=== PATIENT | female | born 1995 | race Hispanic/Latino ===

== ENCOUNTER 2018-11-07 17:37 | Emergency (ER) | payer MEDICAID, SELFPAY ==
[2018-11-07 17:38] VITALS: BP 114/72; PULSE 97; RESP 18; TEMP 36.1; O2SAT 98; BMI 24.2
[2018-11-07] MEDS: 0.9% Normal Saline 1,000 ML 1000 ML IV ×2 (18:10→20:12)
[2018-11-07] MEDS: Ondansetron 4 MG/2 ML Vial IV (18:24)
[2018-11-07] MEDS: Ketorolac 30 MG/ML Syringe IV (18:24)
[2018-11-07 18:54] LABS: Absolute Lymphocyte Count 0.81 X10^3/ul (0.83-4.51); Absolute Neutrophil Count 5.1 X10^3/uL (2.0-7.7); Eosinophil# 0.02 X10^3/uL; Eosinophils% 0.3 % (0-5); Hemoglobin 14.4 g/dl (12.0-15.0); Lymphocyte # 0.81 X10^3/ul (4.0); Lymphocyte % 11.9 % (19-41); Mean Corp Hgb Conc 35.1 g/gl (32-36); Mean Corpuscular Hgb 29.3 pg (27.0-32.0); Mean Corpuscular Volume 83.3 fL (81-99); Mean Platelet Vol. 10.5 fl (6.2-12.0); Monocyte# 0.82 X10^3/uL; Monocyte% 12.1 % (0-10); Neutrophil # 5.14 X10^3/uL (2.7-7.7); Neutrophil % 75.6 % (47-70); Platelet Count 179 K/mm3 (150-450); RBC Distribution Width CV 12.2 % (11.6-14.6); RBC Distribution Width SD 37.1 fl (35.1-43.9); Red Blood Count 4.92 M/mm3 (4.2-5.4); White Blood Count 6.8 K/mm3 (4.4-11.0)
[2018-11-07 19:03] LABS: Anion Gap 5 (5-15); BUN 7 mg/dL (7-18); BUN/Creat Ratio 10.4 RATIO (10-20); Calcium,Total 8.4 mg/dL (8.5-10.1); Chloride 104 mmol/L (98-107); Creatinine, Serum 0.67 mg/dL (0.55-1.02); EST Glomerular Filtration Rate 115 mL/min (>60); Est Glom Filt Rate - Afr Amer 140 mL/min (>60); Estimated Creatinine Clearance 122.25 ml/min; Glucose 119 mg/dL (74-106); Potassium 3.2 mmol/L (3.5-5.1); Sodium Level 136 mmol/L (136-145)
[2018-11-07 19:16] LABS: Internal QC Validated? YES +Cl - CLEAR BKGD; Pregnancy, Serum, hCG Quali. NEGATIVE Negative
[2018-11-07 19:28] LABS: POSITIVE COUNT NO; POSITIVE DIFFERENTIAL NO; POSITIVE MORPHOLOGY NO
[2018-11-07 20:15] VITALS: BP 98/65; PULSE 79; RESP 18
--- NOTE | 2018-11-07 20:32 | ED.VISSUMM ---
- ER Visit Summary Date of Service: 11/07/18 Chief Complaint: Vomiting and diarrhea History of Present Illness: The patient is a 23 F with no primary care physician. She moved here from [place] 1 week ago. She reports that she has vomiting and diarrhea that began yesterday. She is vomited 10 times. No blood or emesis. She had a 10 episodes of diarrhea. No blood in her stools or black tarry stools. Denies any sick contacts. She does remain report that she may have eaten something bad. However, she does not have a specific food that she is questioning. On review of systems patient reports that she has a headache that is 8 of 10 severity. It is diffuse. Is been gradual in onset. She has had similar headaches previously. Physical Examination: Vitals: Stable. Afebrile. General: Well-nourished and well-developed. Head: Normocephalic atraumatic. Neck: Supple, no lymphadenopathy. No JVD. Nontender. Cardiovascular: Regular rate and rhythm. No murmurs. Respiratory: No respiratory distress. Clear to auscultation bilaterally. Abdominal: Soft, nontender, nondistended, normal bowel sounds. No guarding, rebound, or peritoneal signs. Back: Nontender. Extremities: Nontender, no edema. Skin: Normal color, no rash. Neurologic: Alert and oriented ?3. Cranial nerves II through XII are intact. Normal strength and sensation. Psych: Normal affect. Test Results: CBC shows segmented neutrophils of 76, lymphocytes 12, monocytes 12. Chem-7 shows potassium 3.2, glucose 119, calcium 8.4. test is negative. Emergency Department Course and Treatment: Patient had an IV placed. She is given a liter normal saline. She was given Zofran Toradol IV. She is resting comfortably. She has had no vomiting or diarrhea while here. Treatment Plan: Patient will be discharged with Zofran. [facility] if not improving. Return to the emergency department for any worsening symptoms. Disposition: To home in improved and stable condition. Impression: 1. Vomiting/diarrhea. This note was generated with AnchorFreeation software. It may contain incorrect words, spelling, and punctuation that were not noted in review of the chart prior to signing ED Disposition - Plan for ED Patient: Disposition: Home or Assisted Living Instructions: ED Vomiting Diarrhea Nonspecific Ad Prescriptions: Ondansetron [Zofran Odt] 4 mg PO Q8H PRN PRN #10 tablet PRN Reason: Nausea Referrals: Carmen Galvez [NON-STAFF] - 1-2 Days if not improving
[2018-11-07 20:50] VITALS: BP 98/88; PULSE 88; O2SAT 100
== END 2018-11-07 20:53 | disposition home or self-care (01) ==
LOC: ED 18:39
PROVIDERS: Emergency Provider Emergency Medicine
DX: R19.7 Diarrhea, unspecified (principal); R11.2 Nausea with vomiting, unspecified; R51 Headache
CPT/HCPCS: 80048; 84703; 85025; 96361; 96374; 96375; 99283; J7030; A4216; J2405

== ENCOUNTER 2019-04-16 22:25 | Emergency (ER) | payer MEDICAID, SELFPAY ==
[2019-04-16 22:27] VITALS: BP 119/83; PULSE 87; RESP 16; TEMP 36.4; O2SAT 98; BMI 22.3
--- NOTE | 2019-04-16 22:51 | ED.VIS.GEN ---
History of Present Illness Chief Complaint: Sore Throat Informant: Patient Onset: Days - 5 days Context: Gradual Onset Timing: Waxes and wanes Current Severity: Moderate Maximum Severity: Moderate Narrative: Patient presents with 5-day history of sore throat. She states left is worse than right. She has not had significant cough. She has not noted fever. 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 Past Medical History - Allergies and Home Meds Allergies/Adverse Reactions: Allergies No Known Allergies Allergy (Verified 11/07/18 17:38) Primary Care Physician: Care Physician,No Primary [Primary Care Provider] - Prior records reviewed: Yes Past Medical History: - - Reviewed Smoking Status: Never smoker Review of Systems General: Denies: Chills, Fever Eyes: Denies: Visual changes - bilaterally ENT: Reports: Sore throat. Denies: Bilateral ear pain Cardiovascular: Denies: Chest pain Respiratory: Denies: Dyspnea Gastrointestinal: Denies: Abdominal pain, Nausea, Vomiting, Diarrhea Genitourinary: Denies: Dysuria Musculoskeletal: Denies: Neck pain, Back pain Skin: Denies: Rash Neurological: Denies: Headache Physical Exam Vital Signs/Narrative: Vital Signs Temp Pulse Resp BP Pulse Ox 04/16/19 22:27 97.5 F L 87 16 119/83 H 98 Inital Vital Signs reviewed: Yes General: Well nourished, Well developed Head: Normocephalic Eyes: Perrl, EOMI ENT: Moist mucous membranes, TM's clear, - - 3+ tonsils bilaterally. Uvula is midline. Neck: - - Bilateral anterior cervical lymphadenopathy, left greater than right. Cardiovascular: Regular rate, Regular rhythm Respiratory: No distress, CTA bilaterally Abdomen: Soft, Nontender Skin: Normal color Neurological: Alert, Oriented x3 Psychological: Normal affect Diagnostic/Tx/Re-eval - Medical Decision Making Patient does have evidence of pharyngitis with exposure to multiple children at daycare. She is tolerating secretions well. She will be treated with a dose of Decadron and course of amoxicillin for presumed strep. ED Disposition - Plan for ED Patient: Disposition: Home or Assisted Living Diagnosis: Pharyngitis Instructions: PHARYNGITIS, Strep (Presumed) Prescriptions: Amoxicillin 500 mg PO TID #30 tablet Referrals: Carlotta Encinas MD [STAFF PHYSICIAN] - As Needed
[2019-04-16] MEDS: AMOXICILLIN 500 MG CAPSULE PO (23:05)
[2019-04-16] MEDS: dexAMETHasone 4 MG Tablet 10 MG PO (23:05)
== END 2019-04-16 23:09 | disposition home or self-care (01) ==
PROVIDERS: Emergency Provider Emergency Medicine
DX: J02.9 Acute pharyngitis, unspecified (principal); R59.0 Localized enlarged lymph nodes
CPT/HCPCS: 99283

== ENCOUNTER 2019-12-26 09:58 | Emergency (ER) | payer MEDICAID, SELFPAY ==
[2019-12-26 09:47] VITALS: BMI 22.3
[2019-12-26 09:59] VITALS: BP 129/73; PULSE 94; RESP 16; TEMP 36.3; O2SAT 96; BMI 25.2
--- NOTE | 2019-12-26 10:11 | US_ITS ---
STUDY: FIRST TRIMESTER OBSTETRICAL ULTRASOUND REASON FOR EXAM: Female, 24 years old PAIN -- NO IUP IN OFFICE -- DR DHILLON WANTED EXAM WITH NO QUANT DRAWN - QUANT PENDING LMP: October 25, 2019. TECHNIQUE: Transabdominal and Transvaginal TECHNICAL QUALITY: Adequate. PRIOR ULTRASOUND: None. FINDINGS: There is no demonstrated intrauterine gestational sac. There is no demonstrated yolk sac. The placenta is non-visualized. There is no demonstrated embryo ( pole). The estimated gestation age (EGA) by LMP is 8 weeks, 6 days. The estimated date of delivery (BRANDY) by LMP is July 30, 2020. The uterus measures 8.9 cm x 5.4 cm x 4.7 cm. The endometrium measures 13 mm. There is no demonstrated uterine fibroid. The cervix is closed. The right ovary measures 3.4 cm x 2.9 cm x 1.7 cm. There is no right ovarian cyst. There is no visualized right adnexal mass or complex lesion. The left ovary measures 3.9 cm x 2.7 cm x 2.9 cm. 5 mm calcification in the left ovary.. There is no left ovarian cyst. There is no visualized left adnexal mass or complex lesion. There is no fluid in the cul de sac. US/Transvaginal w/Preg US IMPRESSION: No intrauterine gestation is seen. Both ovaries are unremarkable. Electronically Signed: Yoni Ross, at 11:29 EDT , Service support ,
[2019-12-26 10:23] LABS: Absolute Lymphocyte Count 1.96 X10^3/uL (0.83-4.51); Absolute Neutrophil Count 4.5 X10^3/uL (2.0-7.7); Basophil# 0.04 X10^3/uL; Basophil% 0.5 % (0-1); Eosinophils% 1.4 % (0-5); Hematocrit 43.9 % (37-47); Hemoglobin 14.9 g/dL (12.0-15.0); Lymphocyte # 1.96 X10^3/ul (4.0); Lymphocyte % 26.8 % (19-41); Mean Corp Hgb Conc 33.9 g/dL (32-36); Mean Corpuscular Hgb 28.9 pg (27.0-32.0); Mean Corpuscular Volume 85.2 fL (81-99); Mean Platelet Vol. 10.2 fl (6.2-12.0); Monocyte# 0.67 X10^3/uL; Monocyte% 9.2 % (0-10); NRBC Flagged by Analyzer 0 % (0-5); Neutrophil # 4.52 X10^3/uL (2.7-7.7); Neutrophil % 61.8 % (47-70); Platelet Count 214 K/mm3 (150-450); RBC Distribution Width CV 12.1 % (11.6-14.6); Red Blood Count 5.15 M/mm3 (4.2-5.4); White Blood Count 7.3 K/mm3 (4.4-11.0)
--- NOTE | 2019-12-26 10:42 | ED.VISSUMM ---
- ER Visit Summary Date of Service: 12/26/19 Chief Complaint: Pelvic pain History of Present Illness: The patient is a 24 F G3, P1 Ab1 with having a miscarriage. Prior . Patient states her last menstrual period was sometime in October. She saw her CITY LIBR[employer] DIRECTOR Dr. Angy Gomez today. And an in office ultrasound they did not see a . They want to rule out an ectopic versus other causes of her pain. She denies any bleeding or discharge. No history of STD. She is never had an ectopic before. She denies any dysuria, fever or chills. She denies any nausea, vomiting, diarrhea or constipation. Currently she is pain-free. Physical Examination: Young female no acute distress vital signs are stable afebrile. Initial blood pressure 129/73. HEENT exam unremarkable. Neck nontender. Lungs clear to auscultation bilaterally. Heart regular rate and rhythm no murmur. M soft, nontender, nondistended normal bowel sounds no peritoneal signs. Absolutely nontender. Pelvic exam done female nurse present in the room plus also a female from Dr. David Vega's office. Pelvic exam is unremarkable. Normal external genitalia. On speculum exam there is no vaginal bleeding or discharge. Cervical loss closed. On bimanual exam there is no uterine or adnexal tenderness or masses. Patient really had no significant pain during the exam. She was anxious and emotionally upset due to the nature of her visit. She is consolable. Patient is moving all 4 extremities. Neurovascularly intact. There is no edema. Neurologically she is awake and alert. Test Results: White count of 7. Hemoglobin 14. UA normal no signs of blood or infection. ABO Rh blood type O+. Quantitative hCG only 373. Pelvic ultrasound showed no acute abnormality. Read by the radiologist and the electronics warfare technician. No ectopic seen. No free fluid seen. No cyst. I believe her [employer] DIRECTOR reviewed those results. Emergency Department Course and Treatment: 24-year-old patient with 4+ home test with pelvic pain. Rule out ectopic versus other etiologies. Repeat exam at 1:20 PM patient is doing well. She is pain-free. Her abdomen is benign and nontender. She and I went over all of her test results. I also spoke to her [employer] DIRECT[employer] Dr. Angy Vega and she will see her in follow-up next week. She will follow quant and serial ultrasounds. Patient knows to return if increasing pain or heavy bleeding. Treatment Plan: Follow-up with your [employer] DIRECTOR for repeat quantitative hCGs and ultrasounds. Return if worsening bleeding. Disposition: Discharge Impression: Acute pelvic pain of uncertain etiology Early first trimester Rule out ectopic This note was generated with Encite dictation software. It may contain incorrect words, spelling, and punctuation that were not noted in review of the chart prior to signing ED Disposition - Plan for ED Patient: Referrals: Care Physician,No Primary [Primary Care Provider] -
[2019-12-26 10:48] LABS: hCG Titer Quant., Serum 373 mIU/mL (1-3)
[2019-12-26 11:39] LABS: Mucous, Urine 0 SEEN /hpf (<or=2+); Red Blood Cells-Urine 0 SEEN /hpf (0-5); Squamous Epithelial Cells - UA 0 SEEN /hpf (5-10); White Blood Cells 0 SEEN /hpf (0-5)
[2019-12-26 11:43] LABS: Color, Urine Straw (Yellow); Glucose, Dipstick Normal (Normal); Ketone-Dipstick Negative (Negative); Leukocyte Esterase-Dipstick Negative /ul (Negative); Nitrite-Dipstick Negative (Negative); Occult Blood-Urine Negative /ul (Negative); Protein-Dipstick Negative (Negative); Specific Gravity, Urine 1.005 (1.002-1.030); Urine Bilirubin Dipstick Negative (Negative); Urine Clarity Clear (Clear); Urine Urobilinogen Normal (Normal)
[2019-12-26 11:57] LABS: Bacteria RARE /hpf (None Seen)
[2019-12-26 12:06] VITALS: BP 119/71; PULSE 97; RESP 19; O2SAT 98
--- NOTE | 2019-12-26 13:24 | DCINST.ED_ITS ---
ED Disposition - Plan for ED Patient: Disposition: Home or Assisted Living Instructions: ED ECTOPIC RULE OUT Referrals: Angy Gomez MD [STAFF PHYSICIAN] - 1 Week Additional Instructions: Follow-up with Dr. Gomez's office on Monday. They will need to get repeat quantitative hCG levels to follow your . They will also need to get repeat ultrasound to ensure that you have a normal . It is just too e eryn to tell at this time but there are currently no signs of this being an ectopic . Tylenol for any pain. Return to the emergency department if you have severe worsening pelvic pain or heavy vaginal bleeding.
[2019-12-26 13:56] VITALS: BP 115/67; PULSE 70; RESP 16; O2SAT 98
== END 2019-12-26 13:56 | disposition home or self-care (01) ==
PROVIDERS: Emergency Provider Emergency Medicine
DX: O26.891 Other specified pregnancy related conditions, first trimester (principal); R10.2 Pelvic and perineal pain; Z3A.00 Weeks of gestation of pregnancy not specified
CPT/HCPCS: 76817; 81001; 84702; 85025; 86900; 86901; 99284; A4216

== ENCOUNTER → 2019-12-28 08:41 | Outpatient (CLI) | payer MEDICAID, SELFPAY ==
[2019-12-26 09:59] VITALS: BMI 25.2
[2019-12-28 09:59] LABS: hCG Titer Quant., Serum 917 mIU/mL (1-3)
== END ==
PROVIDERS: Referring Provider Obstetrics & Gynecology; Visit Provider Obstetrics & Gynecology
DX: Z34.90 Encounter for supervision of normal pregnancy, unspecified, unspecified trimester (principal)
CPT/HCPCS: 36415; 84702

== ENCOUNTER → 2020-01-13 12:23 | Outpatient (CLI) | payer MEDICAID, SELFPAY ==
[2019-12-26 09:59] VITALS: BMI 25.2
--- NOTE | 2020-01-13 12:28 | US_ITS ---
STUDY: FIRST TRIMESTER OBSTETRICAL ULTRASOUND (TWINS) REASON FOR EXAM: Female, 24 years old. LMP: Unknown. viability TECHNIQUE: Transvaginal TECHNICAL QUALITY: Adequate. COMPARISON: None. FINDINGS: There there is a single demonstrated intrauterine gestational sac. There is a single identified placenta, without a ?twin peak? sign, indicating a probable monochorionic . The amniotic membrane cannot be visualized. BABY A The mean sac diameter (MSD) measure 2.14 cm, indicating an estimated gestational age (EGA) of 7 weeks, 0 days. There is a visualized yolk sac. The yolk sac measures 5.9 mm. There is visualization of an embryo. The crown-rump length (CRL) measures 7.6 mm, indicating an estimated gestational age (EGA) of 6 weeks, 5 days. The estimated gestation age (EGA) by US is 6 weeks, 6 days. The estimated date of delivery (BRANDY) by US is September 01, 2020. There is demonstrated cardiac activity with a heart rate 140 bpm. BABY B The mean sac diameter (MSD) measure 2.14 cm, indicating an estimated gestational age (EGA) of 7 weeks, 0 days. There is a visualized yolk sac. The yolk sac measures 6 mm. There is visualization of an embryo. The crown-rump length (CRL) measures 8 mm, indicating an estimated gestational age (EGA) of 6 weeks, 6 days. The estimated gestation age (EGA) by US is 6 weeks, 6 days. The estimated date of delivery (BRANDY) by US is September 01, 2020. There is demonstrated cardiac activity with a heart rate 129 bpm. MATERNAL ANATOMY The uterus measures 10.2 cm x 6.7 cm x 4.9 cm. There is no demonstrated uterine fibroid. The cervix is closed. The right ovary measures 3.5 cm x 1.7 cm x 1.6 cm. There is no right ovarian cyst. There is no visualized right adnexal mass or complex lesion. The left ovary measures 4 cm x 2.3 cm x 2.3 cm. There is no left ovarian cyst. There is no visualized left adnexal mass or complex lesion. There is minimal fluid in the cul de sac. US/Init OB < 14Wks US IMPRESSION: Live twin gestation with a mean gestational age of 6 weeks and 6 days. Electronically Signed: Yoni Ross, at 14:53 EDT , Service support ,
== END ==
PROVIDERS: Referring Provider Obstetrics & Gynecology; Visit Provider Obstetrics & Gynecology
DX: O20.0 Threatened abortion (principal); Z3A.00 Weeks of gestation of pregnancy not specified
CPT/HCPCS: 76801; 76802

== ENCOUNTER → 2020-01-29 16:58 | Outpatient (CLI) | payer MEDICAID, SELFPAY ==
[2020-01-29 12:53] VITALS: BMI 25.2
[2020-01-29 18:16] LABS: Amphetamine Urine VISTA NEGATIVE (<1000 ng/mL); Barbiturate Urine VISTA NEGATIVE (< 200 ng/mL); Benzodiazepine Urine VISTA NEGATIVE (< 200 ng/mL); Cocaine Urine VISTA NEGATIVE (< 300 ng/mL); Ecstacy Urine VISTA NEGATIVE (< 500 ng/mL); Methadone Urine VISTA NEGATIVE (< 300 ng/mL); PCP Urine VISTA NEGATIVE (< 25 ng/mL); THC Urine VISTA NEGATIVE (< 50 ng/mL); Vista UDS pH Range 7
[2020-01-29 20:08] LABS: Chlamydia Trachomatis by PCR Negative (Negative); Neisserai gonorrhoeae by PCR Negative (Negative); Probe Check PASS; Sample Adequacy Control PASS; Specimen Processing Control PASS
[2020-02-03 22:20] LABS: HPV Reflexed? NOT INDICATED
== END ==
PROVIDERS: Referring Provider Obstetrics & Gynecology; Visit Provider Obstetrics & Gynecology
DX: Z34.90 Encounter for supervision of normal pregnancy, unspecified, unspecified trimester (principal); Z12.4 Encounter for screening for malignant neoplasm of cervix
CPT/HCPCS: 80307; 87086; 87088; 87491; 87591; 88175; G0145

== ENCOUNTER → 2020-02-03 12:28 | Outpatient (CLI) | payer MEDICAID, SELFPAY ==
[2020-01-29 12:53] VITALS: BMI 25.2
[2020-02-03 13:40] LABS: NATERA MAILED SPECIMEN
[2020-02-03 13:48] LABS: Absolute Lymphocyte Count 1.85 X10^3/uL (0.83-4.51); Absolute Neutrophil Count 7.2 X10^3/uL (2.0-7.7); Basophil# 0.03 X10^3/uL; Basophil% 0.3 % (0-1); Eosinophil# 0.06 X10^3/uL; Eosinophils% 0.6 % (0-5); Hematocrit 41.2 % (37-47); Hemoglobin 14.6 g/dL (12.0-15.0); Lymphocyte # 1.85 X10^3/ul (4.0); Lymphocyte % 18.4 % (19-41); Mean Corp Hgb Conc 35.4 g/dL (32-36); Mean Corpuscular Hgb 29.6 pg (27.0-32.0); Mean Corpuscular Volume 83.4 fL (81-99); Mean Platelet Vol. 10.7 fl (6.2-12.0); Monocyte# 0.91 X10^3/uL; NRBC Flagged by Analyzer 0 % (0-5); Neutrophil # 7.19 X10^3/uL (2.7-7.7); Neutrophil % 71.4 % (47-70); Platelet Count 225 K/mm3 (150-450); RBC Distribution Width CV 11.9 % (11.6-14.6); RBC Distribution Width SD 35.6 fl (35.1-43.9); Red Blood Count 4.94 M/mm3 (4.2-5.4); White Blood Count 10.1 K/mm3 (4.4-11.0)
[2020-02-03 14:53] LABS: HIV - WCH Non-Reactive (Nonreactive); Hepatitis B Surface Antigen Non-Reactive (Nonreactive); Hepatitis C Antibody Non-Reactive (Nonreactive); Rubella IgG 39.9 IU/mL
[2020-02-06 02:24] LABS: Rapid Plasmin Reagin (RPR) NONREACTIVE (NONREACTIVE)
== END ==
PROVIDERS: Referring Provider Obstetrics & Gynecology; Visit Provider Obstetrics & Gynecology
DX: Z34.81 Encounter for supervision of other normal pregnancy, first trimester (principal); Z31.430 Encounter of female for testing for genetic disease carrier status for procreative management
CPT/HCPCS: 36415; 85025; 86592; 86703; 86762; 86803; 86850; 86900; 86901; 87340

== ENCOUNTER → 2020-02-27 14:11 | Outpatient (CLI) | payer MEDICAID, SELFPAY ==
[2020-02-27 13:20] VITALS: BMI 21.9
[2020-02-27 14:21] VITALS: BP 140/63; PULSE 122; RESP 16; TEMP 36.1; O2SAT 96; BMI 21.9
[2020-02-27] MEDS: Dextrose 5%-Lactated Ringers 1,000 ML 999 ML IV (14:39)
[2020-02-27] MEDS: Ondansetron 4 MG/2 ML Vial IV (14:46)
[2020-02-27] MEDS: proMETHazine 25 MG/ML Syringe 12.5 MG IV (15:38)
[2020-02-27 15:54] VITALS: BP 127/59; PULSE 110; RESP 16
== END ==
PROVIDERS: Referring Provider Obstetrics & Gynecology; Visit Provider Obstetrics & Gynecology
DX: E86.0 Dehydration (principal)
CPT/HCPCS: 96361; 96374; 96375; A4216; J2405

== ENCOUNTER → 2020-06-17 14:06 | Outpatient (CLI) | payer MEDICAID, SELFPAY ==
[2020-06-02 15:23] VITALS: BMI 25.7
[2020-06-17 14:24] LABS: Absolute Lymphocyte Count 1.94 X10^3/uL (0.83-4.51); Absolute Neutrophil Count 8.6 X10^3/uL (2.0-7.7); Basophil# 0.02 X10^3/uL; Basophil% 0.2 % (0-1); Eosinophil# 0.06 X10^3/uL; Eosinophils% 0.5 % (0-5); Lymphocyte # 1.94 X10^3/ul (4.0); Lymphocyte % 16.3 % (19-41); Mean Corp Hgb Conc 32.4 g/dL (32-36); Mean Corpuscular Hgb 26.4 pg (27.0-32.0); Mean Corpuscular Volume 81.7 fL (81-99); Mean Platelet Vol. 10.7 fl (6.2-12.0); Monocyte# 1.24 X10^3/uL; Monocyte% 10.4 % (0-10); NRBC Flagged by Analyzer 0 % (0-5); Neutrophil # 8.59 X10^3/uL (2.7-7.7); Neutrophil % 71.9 % (47-70); Platelet Count 218 K/mm3 (150-450); RBC Distribution Width CV 12.8 % (11.6-14.6); RBC Distribution Width SD 37.6 fl (35.1-43.9); Red Blood Count 4.16 M/mm3 (4.2-5.4); White Blood Count 11.9 K/mm3 (4.4-11.0)
[2020-06-17 14:53] LABS: Glucose Challenge Gest 1H 50g 105 mg/dL (70-140)
== END ==
PROVIDERS: Referring Provider Obstetrics & Gynecology; Visit Provider Obstetrics & Gynecology
DX: Z13.1 Encounter for screening for diabetes mellitus (principal); O09.90 Supervision of high risk pregnancy, unspecified, unspecified trimester
CPT/HCPCS: 36415; 82950; 85025

== ENCOUNTER 2020-07-25 11:25 | Inpatient (IN) | payer MEDICAID, SELFPAY ==
[2020-06-02 15:23] VITALS: BMI 25.7
[2020-07-21 14:04] VITALS: BMI 29.0
[2020-07-25] VITALS (19 sets, daily range): BP systolic 115–150; BP diastolic 53–78; PULSE 64–104; RESP 14–16; TEMP 36.3–37.4; O2SAT 96–100; BMI 28.6
--- NOTE | 2020-07-25 | FALS_PTH ---
PATIENT: JARED PACHECO LOC: [facility] U#:[id number] AGE/SX: 25/F ROOM: WP003 RE07/25/[address]: Dr. Angy Gomez MD : 1995 BED: 1 DIS: 07/28/2020 SPEC #: [id number] RECD: 07/25/20 13:52 STATUS: KENDRA PAPITO #: [id number] ESTHER: 07/25/20 00:[address]: Angy Gomez DEPT: SURGICAL PATHOLOGY RECD BY: Virgil Johns ENTERED: 07/27/20 08:10 SP TYPE: FALL TUBES OTHR DR: No Primary Care Phys Tissues: Fallopian tube Procedures: Surgery Specimen Level II HEADER OPERATION: Tubal ligation PRE-OP DIAGNOSIS: Sterilization TISSUE SUBMITTED: Fallopian tubes MICROSCOPIC DIAGNOSIS Bilateral fallopian tubes, salpingectomy: Bilateral fallopian tubes including fimbrial ends, no pathologic diagnosis. SOLIS:haleigh 07/28/2020 MICROSCOPIC DESCRIPTION Slides are reviewed. GROSS DESCRIPTION Received in fixative is one container labeled with the patient's name and designated bilateral fallopian tubes, stitch in right tube. The specimen consists of bilateral fallopian tubes including fimbrial ends. The right fallopian tube measures 6 cm in length and 0.8 cm in diameter and the left fallopian tube measures 6 cm in length and 1 cm in diameter. Sections reveal unremarkable cut surfaces. Delivery Room Clerk sections are submitted in two cassettes as follows: 1 - right fallopian tube, 2 - left fallopian tube. / SOLIS:haleigh 07/27/20 TC:4 CPT: 44353 x2
[2020-07-25 11:21] LABS: ROM Internal Control Test YES-OK TO RESULT pt. (Internal QC)
[2020-07-25 11:23] LABS: ROM Patient Test POSITIVE (Negative)
[2020-07-25] MEDS: Lactated Ringers 1,000 ML 999 ML IV (11:45)
[2020-07-25] MEDS: Betamethasone/Betamethasone 30 MG/5 ML Vial 12 MG IM (12:02)
[2020-07-25] MEDS: Acetaminophen 500 MG Tablet 1000 MG PO ×2 (12:08→18:24)
[2020-07-25 12:14] LABS: Absolute Lymphocyte Count 1.71 X10^3/uL (0.83-4.51); Absolute Neutrophil Count 6.9 X10^3/uL (2.0-7.7); Basophil# 0.02 X10^3/uL; Basophil% 0.2 % (0-1); Eosinophil# 0.04 X10^3/uL; Eosinophils% 0.4 % (0-5); Hematocrit 33.4 % (37-47); Hemoglobin 10.3 g/dL (12.0-15.0); Lymphocyte # 1.71 X10^3/ul (4.0); Lymphocyte % 18.2 % (19-41); Mean Corp Hgb Conc 30.8 g/dL (32-36); Mean Corpuscular Hgb 23.1 pg (27.0-32.0); Mean Corpuscular Volume 75.1 fL (81-99); Mean Platelet Vol. 11.6 fl (6.2-12.0); Monocyte# 0.72 X10^3/uL; Monocyte% 7.7 % (0-10); NRBC Flagged by Analyzer 0 % (0-5); Neutrophil # 6.88 X10^3/uL (2.7-7.7); Neutrophil % 73.2 % (47-70); Platelet Count 147 K/mm3 (150-450); RBC Distribution Width CV 13.8 % (11.6-14.6); RBC Distribution Width SD 37.2 fl (35.1-43.9); Red Blood Count 4.45 M/mm3 (4.2-5.4); White Blood Count 9.4 K/mm3 (4.4-11.0)
[2020-07-25] MEDS: Sodium Citrate/Citric Acid 30 ML UDC PO (12:20)
--- NOTE | 2020-07-25 12:22 | HP.PCM_ITS ---
- Problem List (1) premature rupture of membranes (PPROM) with unknown onset of labor Status: Acute (2) Discordant growth in twin gestation Status: Acute Comment: borderline,plan growth US q 4 weeks, q2wks TTTs scan with MFM, and wkly BPP @32 wks with MFM, 07/08 nl BPP and JOLEEN (3) History of delivery Status: Acute Comment: csection 08/11/20 at 12 with SM. AOD 2 cm in [place]. plan TOLAC if able. (4) Monochorionic diamniotic twin gestation Status: Acute Comment: NIPT- low risk mono-zygotic identical twin boys, plan delivery at 37 wks. Csection 08/11/20 @ 12 (5) Status: Acute Qualifiers: Comment: low risk nipt and carrier- neg . 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 Is patient in pain?: No Allergies No Known Allergies Allergy (Verified 07/21/20 14:04) Medications vitamin#30 30 mg iron-10 mg iron-folic acid 1 mg-omg3 capsule cap PO 01/29/20 [History Confirmed 07/21/20] meclizine 25 mg chewable tablet 25 mg PO TID PRN #90 tab 02/27/20 [Rx Confirmed 07/21/20] ondansetron HCl 4 mg tablet 4 mg PO Q4H #90 tab 02/27/20 [Rx Confirmed 07/21/20] Last Menstral Period: 10/25/19 Zika: Zika virus screening: Negative : No PFSH PFSH Medical History Dichorionic diamniotic twin gestation (Acute) History of miscarriage (Acute) Surgical History delivery delivered (Acute) Family History Unknown Diabetes Social History (Updated 07/21/20 @ 14:[address] Angy Gomez MD) Smoking Status: Never smoker alcohol intake: never substance use type: does not use caffeine: Yes what type of physical activity do you participate in: walking seatbelt use: always do you feel safe at home: Yes additional social history: [facility] ReserveOut Patient works at [employer] Pregancy History 2 Elective abortions Hx Para 1 Spontaneous abortions 1 Hx # Term Pregnancies Ectopic pregnancies Hx # Pregnancies Multiple births # of living children 1 Past Pregnancies Del. Date Name GA/Weeks Outcome Route Bth Weight Infant Gen Labor Lgth Anesthesia Del Locatn Provider FOB Unknown [place] live - full term 6lbs 15oz Female spinal [place] Delivery Date: 2 cm, AOD Angy Gomez HPI 34 wk OB (TWINS) Ipad req, 30 mins per SM: Details: JARED BRITT is a 25 year old @ 34w6d presents with breech PPROM twins for RLTCS. OB Visit BRANDY Calculator Estimated Delivery Date Method Current WG Current Estimate 09/01/20 Ultrasound #1 34w 0d Other Estimates 07/31/20 LMP (Certain) 38w 4d # 2 Expected Delivery Route/Plan planning RLTCS and BS with SM at 37 weeks, possible tolac if Vtx/Vtx patient counseled regarding risks/benefits of trial of labor versus repeat . ACOG/uptodate education given to patient. 69 % likelihood of success per calculator TOLAC consent form signed: title 19 signed 06/02 Labor Preferences- : yes Specific Issue/Plans flu vaccine: given tdap vaccine: given rhogam: na LARC form signed: yes 07/21/20 with interpretor movement and labor precautions reviewed. Problem list reviewed and updated with the most current plan of care details and appropriate orders placed. Relevant counseling for the gestational age provided. Continue routine care and follow up unless otherwise noted in visit notes/problem list details Initial Weight: 140 lb Date EGA Weight BP Urine Prot Glucose FHR FuHt Pres Dilation Effaced St Visit Note 02/27/20 13w 2d 128 lb (-12 lb) 100/82 Negative Negative A 155 B 145 A B A B A SM- no vb some cramping, SM- no vb some cramping, feeling weak and has lost 12 lbs. tried some nausea medication but didn't work. SM- no vb some cramping, feeling weak and has lost 12 lbs. tried some nausea medication but didn't work. ordered IVFs now to give and ordered zofran and meclizine scheduled B 03/10/20 15w 0d 129 lb 8 oz (-10 lb 8 oz) 112/72 Negative Negative A 175 B 155 A B A B A SM- improved nausea and has gained 2 lbs. no vb crmaping doing well. B 04/07/20 19w 0d 137 lb 4 oz (-2 lb 12 oz) 118/66 Negative Negative A 150 B 145 A B A B A GP - no cramping, LOF, VB, DFM. Anatomy not yet scheduled. Sent order to [facility]. B 05/07/20 23w 2d 146 lb (+6 lb) 110/70 A 150 B 145 A B A B A SM- some lower pelvic pain radiating into groin. some cramping. also having some extra stress with finding a new house, overall doesn't feel depressed or anxious enough to warrant intervention. B 06/02/20 27w 0d 155 lb (+15 lb) 116/70 A 145 B 150 A Transverse B Breech A B A SM- co fatigue. discussed sterilization that is permanent. title 19 signed. has some questions about the complications with the twins so far. questions answered using the interpretor. B 06/23/20 30w 0d 157 lb (+17 lb) 102/80 Trace Negative A 140 B 150 A Transverse B Cephalic A B A SM- no vb lof good fm no regular ctx some pelvic pain B 07/07/20 32w 0d 163 lb (+23 lb) 130/70 A 160 B 130 A B A B A SM- no vb lof good fm no regular ctx B 07/21/20 34w 0d 164 lb (+24 lb) 132/62 Negative Negative A 145 B 140 A Breech B Cephalic A B A SM- no vb lof good fm no regular ctx discussed weekly testing and delivery at 37 weeks larc signed. B ACOG First Trimester First Trimester: Discussed Diagnostics Diagnostics Diagnostics Blood Type O POSITIVE 02/03/20 Antibody Screen NEGATIVE 02/03/20 Glucose 1 Hr 50 gm 105 mg/dL (70-140) 06/17/20 HIV 1&2 Antibody Non-Reactive (Nonreactive) 02/03/20 Rubella IgG Antibody 39.9 IU/mL 02/03/20 Hgb 11.0 g/dL (12.0-15.0) L 06/17/20 Hct 34.0 % (37-47) L 06/17/20 RPR NONREACTIVE (NONREACTIVE) 02/03/20 Details: HIV: Urine Culture: Sequential Screen: NIPT Screen: ROS Const Reports system reviewed and no additional complaints, except as documented Card Reports system reviewed and no additional complaints, except as documented Resp Reports system reviewed and no additional complaints, except as documented GI Reports system reviewed and no additional complaints, except as documented, Reports nausea Reports system reviewed and no additional complaints, except as documented Musc Reports system reviewed and no additional complaints, except as documented all other systems reviewed and negative Exam Const General: cooperative, healthy appearing, comfortable [facility] Head: normal to inspection Nose: external nose normal Face and sinus: normal facial exam Neck Neck: normal visual inspection, full ROM, no lymphadenopathy Thyroid: thyroid normal Chest Chest palpation & inspection: normal inspection of the chest Resp Effort & Inspection: normal respiratory effort GI Inspection: normal to inspection Palpation: soft, other (gravid uterus) Other: infant breech breech and appropriate size for gestational age x 2 Other: Cervical Exam: Extrem General: pedal edema Results POC Urinalysis 2 Dip (Clinic) Office Urine Glucose Negative Last Edit by Teresa Obrien on 07/21/20 14:1 1 Office Urine Protein Negative Last Edit by Teresa Obrien on 07/21/20 14:1 1 Assessment & Plan Problems 1. Sterilization Z30.2 title 19 signed 06/02 2. Monochorionic diamniotic twin gestation O30.039 NIPT- low risk mono-zygotic identical twin boys, plan delivery at 37 wks. Csection 08/11/20 @ 12 3. Discordant growth in twin gestation O30.009; O36.5990 borderline,plan growth US q 4 weeks, q2wks TTTs scan with MFM, and wkly BPP @32 wks with MFM, 07/08 nl BPP and JOLEEN 4. Supervision of high-risk O09.90 PRR BRANDY 09/01/20 boys PC Alexia Rashaun 5. History of delivery Z98.891 csection 08/11/20 at 12 with SM. AOD 2 cm in [place]. plan TOLAC if able. 6. Z34.90 low risk nipt and carrier- neg . anatomy reviewed PPROM 34w6d presents with clear SROM plan RLTCS and BS After discussing the patient's diagnosis and treatment plan options, patient wishes to proceed with surgical management. I have discussed with the patient the risks, benefits, and alternatives of the procedure which include but are not limited to risks of anesthesia, bleeding, infection, possible damage to bowel, bladder, or surrounding vasculature which could lead to additional surgery to evaluate any complications. Patient agrees to procedure and wishes to proceed. ACOG/uptodate references given for additional information regarding procedure. Orders Orders: POC Urinalysis 2 Dip (Clinic) Today Coding Level of Care Code Off vis,est,level 3 Diagnoses Sterilization Z30.2 Monochorionic diamniotic twin gestation O30.039 Discordant growth in twin gestation O30.009; O36.5990 Supervision of high-risk O09.90 History of delivery Z98.891 Z34.90
--- NOTE | 2020-07-25 12:30 | OP.PCM_ITS ---
Problem List (1) premature rupture of membranes (PPROM) with unknown onset of labor Status: Acute (2) Discordant growth in twin gestation Status: Acute Comment: borderline,plan growth US q 4 weeks, q2wks TTTs scan with MFM, and wkly BPP @32 wks with MFM, 07/08 nl BPP and JOLEEN (3) History of delivery Status: Acute Comment: csection 08/11/20 at 12 with SM. AOD 2 cm in [place]. plan TOLAC if able. (4) Monochorionic diamniotic twin gestation Status: Acute Comment: NIPT- low risk mono-zygotic identical twin boys, plan delivery at 37 wks. Csection 08/11/20 @ 12 (5) Status: Acute Qualifiers: Comment: low risk nipt and carrier- neg . anatomy reviewed (6) Sterilization Status: Acute Comment: title 19 signed 06/02 (7) Supervision of high-risk Status: Acute Comment: PRR BRANDY 09/01/20 boys PC Dandonta Rashaun Delivery Classification: GREG Final BRANDY: 09/01/20 Gestational age: 34 Weeks and 5 Days personnel manager: Domingo Allen Type of Anesthesia:: Spinal Special Medications: none Implants Used: none Date of Procedure: 07/25/20 Pre-Operative Diagnosis: pprom breech twins previous csection desired sterilization Post-Operative Diagnosis: same Indications: pprom Indications for : Repeat Elective , Desires elective sterilization, Breech Description of Procedure: The patient is a 25-year-old G2, P1 at 34 weeks 4 days presents with P PROM with twins breech breech presentation. She also had a previous and desired sterilization and consents were signed preoperatively. Spinal anesthesia was placed without difficulty. Suggs catheter was placed. The patient was placed in the dorsal supine position with leftward tilt. Patient was prepped and draped in the normal sterile fashion. Pfannenstiel skin incision was made with the scalpel and carried through to the underlying layer of fascia with the scalpel. Fascia was nicked in the midline and the incision extended laterally. The rectus bellies were dissected off superiorly and inferiorly with out complication both sharply and bluntly. The peritoneum was entered digitally. The incision was stretched and a low transverse uterine incision was made with the scalpel. The 's buttocks was delivered atraumatically followed by rest of the body and the anterior and posterior shoulders without complication the rest of the delivered. The cord was clamped and cut and the was handed off to awaiting nurse. The second was delivered by rupturing the membranes delivering the head followed by anterior and posterior shoulders rest of delivered. The placenta was delivered spontaneously immediately following and was noted to be intact and have a three-vessel cord. The uterus was exteriorized cleared of all clots and debris, and the incision was closed in a single layer closure using #1 Monocryl. The ovaries and fallopian tubes were noted to be within normal limits. Patient had desired sterilization and was counseled preoperatively regarding irreversibility and permanency. Therefore bilateral fallopian tubes were elevated and transected across using a LigaSure device starting proximally to distally without complication the entire fallopian tubes were removed. The uterus was returned to the maternal abdomen and gutters were cleared of all clots and debris. The peritoneum was closed with 3-0 Monocryl in a running fashion. Gloves were changed prior to fascial closure. Fascia was closed with 0 PDS in a running fashion. Subcutaneous tissue was copiously irrigated and the skin was closed with 3-0 Monocryl in a subcuticular fashion. Mepilex dressing was applied without complication. Patient was taken to recovery in stable condition. Amniotic Membrane Rupture Type: Spontaneous Amniotic Fluid Description: Clear Placenta Disposition: Routine to Lab Drain: Suggs to straight drain Esitmated Blood Loss (ml): 400 Infant Gender: Male Delayed cord clamping: No Antibiotic Given: Ancef 2 grams IV x1 Pt instructed on risks of surgery: Bleeding, Anesthesia Risks, Infection, Permanency, Failure Rate of 1 to 2%, Injury to surrounding structure(s) including bowel and bladder Complications: None - Admit VTE Documentation VTE Present on Admission: No VTE Mechan Device Prophylaxis: SCD's Baby B - Information Amniotic Membrane Rupture Type: Artificial Presentation: Vertex - Operative Information B gender: Male Multi Select Codes - Urinary/Genital Urinary/Genital CPT Codes: 96439 C/S+TL - bilateral salpingectomy, 63927 delivery+PP Care(CHRISS) - twins
[2020-07-25] MEDS: Cefazolin 2 GM in 0.9% Normal Saline 100 ML IV (12:31)
--- NOTE | 2020-07-25 12:35 | DCINST_ITS ---
Discharge Diet: No Restrictions Discharge Activity: May Not Drive - for 2 weeks, May not drive while taking narcotic pain medications., May Shower, May Take a Tub Bath - in 7 days May resume sexual activity in: 4-6 weeks Lifting Restrictions: 20 pounds Additional Activity Instructions:: Nothing in the vagina for 4-6 weeks. You may return to work/school in 6 weeks. Call your doctor if your incision/area has: Continuous Slow Oozing, Sudden Increased Bleeding, Increased Pain/ Swelling, Increased Redness, Foul Smelling Discharge Call your doctor if you observe: Fever of 101 or Higher, Using more than one pad per hour - for 2 hours Suture Line Care: Avoid Pulling/Pushing, Avoid Pinching/Bending Cleanse incision/area with: Keep Dressing Clean & Dry Additional Instructions: If you experience any of the following, contact your healthcare provider. * Bleeding that soaks a pad every hour for 2 hours * Fever 100.4 or higher * Unrelieved incision or abdominal pain * Swelling, redness, discharge or bleeding from your incision or episiotomy site * Your incision begins to separate * Problems urinating (including inability to urinate or burning while urinating). * Visual changes * Severe headache * Flu-like symptoms * Pain or redness in one of both of your breasts * Pain, warmth, tenderness or swelling in your legs, especially the calf area * Frequent nausea and vomiting * Symptoms of depression or anxiety If you experience any of the following, call 911 or go to the nearest Emergency Room. * Chest pain * Problems breathing * Seizure activity * Partial or complete paralysis of a body part, slurred speech, weakness or drooping of the face, or a sudden inability to walk or hold your balance Allergies/Adverse Reactions: Allergies No Known Allergies Allergy (Verified 07/25/20 12:14) Medications to take at Discharge Naproxen [Naprosyn] 250 - 500 mg PO Q8H PRN PRN #30 tab 07/25/20 Oxycodone HCl/Acetaminophen [Percocet 5-325] 1 - 2 tab PO Q6H PRN PRN 7 Days #15 tab 07/25/20 The following prescriptions were given: Naproxen [Naprosyn] 250 - 500 mg PO Q8H PRN PRN #30 tab PRN Reason: MILD PAIN Transmission Status: Pending to [facility] DOUGLAS-[address] [facility] Oxycodone HCl/Acetaminophen [Percocet 5-325] 1 - 2 tab PO Q6H PRN PRN 7 Days #15 tab PRN Reason: Pain Transmission Status: Sent to ALBERTO [id number] [facility] Follow-Up: Call to make an appointment with your doctor for an incision check in 1-2 weeks. You will also need a 6 week post- follow up appointment. Test results from this visit will be discussed in further detail at your follow-up appointment, if applicable. Please Follow Up With: Angy Gomez MD - Call to make an appointment for an incision check in 1-2 [phone] When: You will need a post- check in 6 weeks. Primary Care Physician: Care Physician,No Primary [Primary Care Provider] -
[2020-07-25] MEDS: Oxytocin 30 units/NS 500 ml 30 UNITS/500 ML IV.SOLN 167 UNITS IV (13:30)
[2020-07-25 13:53] LABS: Pathology Specimen OB SEE PATHOLOGY REPORT
[2020-07-25] MEDS: 0.9% Saline Lock 10 ML Syringe IV ×2 (17:30→18:24)
[2020-07-25] MEDS: Ketorolac 30 MG/ML Syringe IV (18:24)
[2020-07-26] VITALS (7 sets, daily range): BP systolic 107–118; BP diastolic 46–70; PULSE 70–92; RESP 14–16; TEMP 36.4–37; O2SAT 97–99
[2020-07-26] MEDS: Ketorolac 30 MG/ML Syringe IV ×3 (00:22→12:35)
[2020-07-26] MEDS: Acetaminophen 500 MG Tablet 1000 MG PO ×4 (00:22→18:35)
[2020-07-26] MEDS: 0.9% Saline Lock 10 ML Syringe IV ×2 (00:22→06:33)
--- NOTE | 2020-07-26 03:30 | NURSING ---
this RN gave report to kyoder. cote rn to assure care of pt at this time.
[2020-07-26 05:53] LABS: Hematocrit 28.5 % (37-47); Mean Corp Hgb Conc 31.6 g/dL (32-36); Mean Corpuscular Hgb 23.7 pg (27.0-32.0); Mean Platelet Vol. 11.3 fl (6.2-12.0); Platelet Count 159 K/mm3 (150-450); RBC Distribution Width CV 13.8 % (11.6-14.6); RBC Distribution Width SD 37.1 fl (35.1-43.9); White Blood Count 18.4 K/mm3 (4.4-11.0)
--- NOTE | 2020-07-26 09:26 | PCM.PN.OB ---
Patient Problems: Active and Suspected Problems (Last Reviewed 07/21/20 @ 14:04 by Teresa Obrien) premature rupture of membranes (PPROM) with unknown onset of labor (Acute) Sterilization (Acute) title 19 signed 06/02 Discordant growth in twin gestation (Acute) borderline,plan growth US q 4 weeks, q2wks TTTs scan with MFM, and wkly BPP @32 wks with MFM, 07/08 nl BPP and JOLEEN Monochorionic diamniotic twin gestation (Acute) NIPT- low risk mono-zygotic identical twin boys, plan delivery at 37 wks. Csection 08/11/20 @ 12 History of delivery (Acute) csection 08/11/20 at 12 with SM. AOD 2 cm in [place]. plan TOLAC if able. Supervision of high-risk (Acute) PRR BRANDY 09/01/20 boys PC Alexia Rashaun (Acute) low risk nipt and carrier- neg . anatomy reviewed Subjective: Patient doing well without complaints. Tolerating PO. Ambulating and voiding without difficulty. feeding well. Denies chest pain, shortness of breath, calf pain/swelling, fevers, chills, lightheadedness. - Physical Exam Vitals/I&O's: Vital Signs Temp Pulse Resp BP Pulse Ox 98.1 F 86 16 115/67 97 07/26/20 08:00 07/26/20 08:00 07/26/20 08:00 07/26/20 08:00 07/26/20 08:00 Oxygen Delivery Method Room Air Weight: 161 lb 9.581 oz Body Mass Index (BMI) 28.6 Intake and Output for Last 24 Hours 07/24/20 07/25/20 07/26/20 23:59 23:59 23:59 Intake Total 3878.5 / 3878.5 Output Total 1450 / 1450 550 / 550 Balance 2428.5 / 2428.5 -550 / -550 General: Alert, Oriented x3 Microbiology Past 72 Hours 07/25/20 12:10 Mucosa - Nose SARS-CoV-2 Antigen (Rapid) - Final Laboratory Results 07/25/20 11:13: Vag Amniotic Fld Detect POSITIVE H 07/25/20 11:45: WBC 9.4, RBC 4.45, Hgb 10.3 L, Hct 33.4 L, MCV 75.1 L, MCH 23.1 L, MCHC 30.8 L, RDW Std Deviation 37.2, RDW Coeff of Florian 13.8, Plt Count 147 L, MPV 11.6, Immature Gran % (Auto) 0.300, Neut % (Auto) 73.2 H, Lymph % (Auto) 18.2 L, Gilmer % (Auto) 7.7, Eos % (Auto) 0.4, Baso % (Auto) 0.2, Absolute Neuts (auto) 6.9, Absolute Lymphs (auto) 1.71, Nucleated RBC % 0 07/25/20 11:45: Blood Type O POSITIVE, Antibody Screen NEGATIVE 07/26/20 05:45: WBC 18.4 H, RBC 3.80 L, Hgb 9.0 L, Hct 28.5 L, MCV 75.0 L, MCH 23.7 L, MCHC 31.6 L, RDW Std Deviation 37.1, RDW Coeff of Florian 13.8, Plt Count 159, MPV 11.3 Current Medications Acetaminophen (Acetaminophen 500 Mg Tablet) 1,000 mg PO Q6 [facility] Last Admin: 07/26/20 06:33 Dose: 1,000 mg Documented by: Bisacodyl (Bisacodyl 10 Mg Suppository) 10 mg RECTAL UD PRN PRN Reason: If no BM Diphenhydramine HCl (Diphenhydramine 25 Mg Capsule) 25 mg PO Q6H PRN PRN PRN Reason: ITCHING Stop: 07/26/20 13:05 Hydrocortisone (Hydrocortisone 2.5% Crm) 1 applic TOPICAL TID PRN PRN; Protocol PRN Reason: Discomfort Lactated Ringer's () 1,000 mls @ 100 mls/hr IV .Q10H [facility] Last Admin: 07/26/20 01:22 Dose: Not Given Documented by: Ketorolac Tromethamine (Ketorolac 30 Mg/Ml Syringe) 30 mg IV Q6H [facility] Stop: 07/26/20 13:01 Last Admin: 07/26/20 06:33 Dose: 30 mg Documented by: Methylergonovine Maleate (Methylergonovine 0.2 Mg/Ml Ampul) 0.2 mg IM X1 PRN PRN Reason: Uterine Atony Nalbuphine HCl (Nalbuphine 10 Mg/Ml Ampul) 5 mg IV Q3H PRN PRN PRN Reason: ITCHING Stop: 07/26/20 13:05 Naloxone HCl (Naloxone 0.4 Mg/Ml Syringe) 0.02 mg IV Q1M PRN PRN Reason: RR <10 and pt unresponsive Naproxen (Naproxen 250 Mg Tablet) 500 mg PO Q8H [facility] Ondansetron HCl (Ondansetron 4 Mg/2 Ml Vial) 4 mg IV Q4H PRN PRN PRN Reason: Nausea Oxycodone HCl (Oxycodone 5 Mg Tablet) 5 - 10 mg PO Q4H PRN PRN PRN Reason: Pain Score 4-10 Prochlorperazine Edisylate (Prochlorperazine 10 Mg/2 Ml Vial) 10 mg IV Q6H PRN PRN PRN Reason: NAUSEA Senna/Docusate Sodium (Senna/Docusate Sodium 1 Tablet) 0 tablet PO DAILY [facility] Simethicone (Simethicone 80 Mg Tablet) 80 mg PO PCHS PRN PRN Reason: Indigestion/stomach pain Sodium Chloride (0.9% Saline Lock 10 Ml Syringe) 5 - 15 ml IV UD PRN PRN Reason: SALINE FLUSH Last Admin: 07/26/20 06:33 Dose: 10 ml Documented by: Medical Necessity - Tobacco Use Smoking Status: Never smoker Assessment/Plan All Active Problems (Last Reviewed 07/21/20 @ 14:04 by Teresa Obrien) premature rupture of membranes (PPROM) with unknown onset of labor (Acute) Sterilization (Acute) Discordant growth in twin gestation (Acute) Monochorionic diamniotic twin gestation (Acute) History of delivery (Acute) Supervision of high-risk (Acute) (Acute) Ectopic (Resolved) s/p LTCS PPD # 1 1. routine post care 2. breast feeding- support given 3. rh positive 4. rubella immune
[2020-07-26] MEDS: Senna/Docusate Sodium 1 Tablet PO (12:35)
[2020-07-26] MEDS: Naproxen 250 MG Tablet 500 MG PO (18:45)
[2020-07-27] MEDS: Acetaminophen 500 MG Tablet 1000 MG PO ×3 (01:05→18:00)
[2020-07-27 01:07] VITALS: BP 110/49; PULSE 87; RESP 18; TEMP 36.6
[2020-07-27] MEDS: Naproxen 250 MG Tablet 500 MG PO ×3 (02:40→18:58)
[2020-07-27 07:44] VITALS: BP 114/58; PULSE 81; RESP 18; TEMP 36.8; O2SAT 97
--- NOTE | 2020-07-27 07:52 | NURSING ---
instructed pt to void. will recheck uterus
[2020-07-27] MEDS: Senna/Docusate Sodium 1 Tablet PO (11:40)
[2020-07-27 11:44] VITALS: BP 113/62; PULSE 84; RESP 18; TEMP 37.1; O2SAT 97
--- NOTE | 2020-07-27 11:56 | NURSING ---
fundus displaced to right at +2. Pt denied need to void, but instructed to empty bladder. to BR and voided 500cc. fundus then at U and midline. Instructed pt to voided q 3-4 hours even if urge is not strong.
--- NOTE | 2020-07-27 17:09 | PCM.PN.OB ---
Subjective: Patient doing well without complaints. Tolerating PO. Ambulating and voiding without difficulty. feeding well. Denies chest pain, shortness of breath, calf pain/swelling, fevers, chills, lightheadedness. - Physical Exam Vitals/I&O's: Vital Signs Temp Pulse Resp BP Pulse Ox 98.7 F 84 18 113/62 97 07/27/20 11:44 07/27/20 11:44 07/27/20 11:44 07/27/20 11:44 07/27/20 11:44 Oxygen Delivery Method Room Air Weight: 161 lb 9.581 oz Body Mass Index (BMI) 28.6 Intake and Output for Last 24 Hours 07/25/20 07/26/20 07/27/20 23:59 23:59 23:59 Intake Total 3878.5 / 3878.5 Output Total 1450 / 1450 550 / 550 Balance 2428.5 / 2428.5 -550 / -550 General: Alert, Oriented x3 Microbiology Past 72 Hours 07/25/20 12:10 Mucosa - Nose SARS-CoV-2 Antigen (Rapid) - Final Current Medications Acetaminophen (Acetaminophen 500 Mg Tablet) 1,000 mg PO Q6 [facility] Last Admin: 07/27/20 11:37 Dose: 1,000 mg Documented by: Bisacodyl (Bisacodyl 10 Mg Suppository) 10 mg RECTAL UD PRN PRN Reason: If no BM Hydrocortisone (Hydrocortisone 2.5% Crm) 1 applic TOPICAL TID PRN PRN; Protocol PRN Reason: Discomfort Methylergonovine Maleate (Methylergonovine 0.2 Mg/Ml Ampul) 0.2 mg IM X1 PRN PRN Reason: Uterine Atony Naloxone HCl (Naloxone 0.4 Mg/Ml Syringe) 0.02 mg IV Q1M PRN PRN Reason: RR <10 and pt unresponsive Naproxen (Naproxen 250 Mg Tablet) 500 mg PO Q8H [facility] Last Admin: 07/27/20 11:39 Dose: 500 mg Documented by: Ondansetron HCl (Ondansetron 4 Mg/2 Ml Vial) 4 mg IV Q4H PRN PRN PRN Reason: Nausea Oxycodone HCl (Oxycodone 5 Mg Tablet) 5 - 10 mg PO Q4H PRN PRN PRN Reason: Pain Score 4-10 Prochlorperazine Edisylate (Prochlorperazine 10 Mg/2 Ml Vial) 10 mg IV Q6H PRN PRN PRN Reason: NAUSEA Senna/Docusate Sodium (Senna/Docusate Sodium 1 Tablet) 0 tablet PO DAILY [facility] Last Admin: 07/27/20 11:40 Dose: 2 tablet Documented by: Simethicone (Simethicone 80 Mg Tablet) 80 mg PO HS PRN PRN Reason: Indigestion/stomach pain Medical Necessity - Tobacco Use Smoking Status: Never smoker Assessment/Plan All Active Problems (Last Reviewed 07/21/20 @ 14:04 by Teresa Obrien) Discordant growth in twin gestation (Resolved) History of delivery (Resolved) Monochorionic diamniotic twin gestation (Resolved) (Resolved) premature rupture of membranes (PPROM) with unknown onset of labor (Resolved) Sterilization (Resolved) Supervision of high-risk (Resolved) Ectopic (Resolved) s/p LTCS PPD # 2 1. routine post care 2. breast feeding- support given 3. rh positive 4. rubella immune
[2020-07-27 20:10] VITALS: BP 116/58; PULSE 90; RESP 16; TEMP 37.2
[2020-07-28] MEDS: Acetaminophen 500 MG Tablet 1000 MG PO ×2 (00:02→06:02)
--- NOTE | 2020-07-28 01:16 | NURSING ---
0002 pt awake and pumping, pt uncomfortable does not want more than tylenol states it has been working so far. will check back with pt.
[2020-07-28] MEDS: Naproxen 250 MG Tablet 500 MG PO ×2 (03:01→10:41)
[2020-07-28 03:03] VITALS: BP 118/65; PULSE 91; RESP 16; TEMP 37.2
[2020-07-28 07:40] VITALS: BP 116/73; PULSE 81; RESP 16; TEMP 36.9
--- NOTE | 2020-07-28 07:52 | PCM.PN.OB ---
Subjective: Patient doing well without complaints. Tolerating PO. Ambulating and voiding without difficulty. /pumping well. Twin boys in [place] and doing well. Denies chest pain, shortness of breath, calf pain/swelling, fevers, chills, lightheadedness. - Physical Exam Vitals/I&O's: Vital Signs Temp Pulse Resp BP Pulse Ox 98.4 F 81 16 116/73 97 07/28/20 07:40 07/28/20 07:40 07/28/20 07:40 07/28/20 07:40 07/27/20 11:44 Oxygen Delivery Method Room Air Weight: 161 lb 9.581 oz Body Mass Index (BMI) 28.6 Intake and Output for Last 24 Hours 07/26/20 07/27/20 07/28/20 23:59 23:59 23:59 Output Total 550 / 550 Balance -550 / -550 General: Alert, Oriented x3 Abdomen: Soft, Distended, - - FF below U. Dressing dry and intact. Appropriately tender Microbiology Past 72 Hours 07/25/20 12:10 Mucosa - Nose SARS-CoV-2 Antigen (Rapid) - Final Current Medications Acetaminophen (Acetaminophen 500 Mg Tablet) 1,000 mg PO Q6 [facility] Last Admin: 07/28/20 06:02 Dose: 1,000 mg Documented by: Bisacodyl (Bisacodyl 10 Mg Suppository) 10 mg RECTAL UD PRN PRN Reason: If no BM Hydrocortisone (Hydrocortisone 2.5% Crm) 1 applic TOPICAL TID PRN PRN; Protocol PRN Reason: Discomfort Methylergonovine Maleate (Methylergonovine 0.2 Mg/Ml Ampul) 0.2 mg IM X1 PRN PRN Reason: Uterine Atony Naloxone HCl (Naloxone 0.4 Mg/Ml Syringe) 0.02 mg IV Q1M PRN PRN Reason: RR <10 and pt unresponsive Naproxen (Naproxen 250 Mg Tablet) 500 mg PO Q8H [facility] Last Admin: 07/28/20 03:01 Dose: 500 mg Documented by: Ondansetron HCl (Ondansetron 4 Mg/2 Ml Vial) 4 mg IV Q4H PRN PRN PRN Reason: Nausea Oxycodone HCl (Oxycodone 5 Mg Tablet) 5 - 10 mg PO Q4H PRN PRN PRN Reason: Pain Score 4-10 Prochlorperazine Edisylate (Prochlorperazine 10 Mg/2 Ml Vial) 10 mg IV Q6H PRN PRN PRN Reason: NAUSEA Senna/Docusate Sodium (Senna/Docusate Sodium 1 Tablet) 0 tablet PO DAILY [facility] Last Admin: 07/27/20 11:40 Dose: 2 tablet Documented by: Simethicone (Simethicone 80 Mg Tablet) 80 mg PO HS PRN PRN Reason: Indigestion/stomach pain Medical Necessity - Tobacco Use Smoking Status: Never smoker Assessment/Plan All Active Problems (Last Reviewed 07/21/20 @ 14:04 by Teresa Obrien) Discordant growth in twin gestation (Resolved) History of delivery (Resolved) Monochorionic diamniotic twin gestation (Resolved) (Resolved) premature rupture of membranes (PPROM) with unknown onset of labor (Resolved) Sterilization (Resolved) Supervision of high-risk (Resolved) Ectopic (Resolved) s/p LTCS PPD # 3 with bilat salpingectomy 1. routine post care 2. breast feeding- support given 3. rh positive 4. rubella immune 5. hotel today
--- NOTE | 2020-07-28 07:55 | DS.PCM_ITS ---
Discharge Date and Diagnosis Date of Admission: 07/25/20 Hospital Course and Treatment Operations: - - RLTCS, BS Summary of Care Provided: The patient is a 25 year old F repeat LTCS with BS for twin , breech. Patient underwent section with routine recovery, return of normal bowel and bladder function. Ambulating, voiding and tolerating PO. Stable for discharge home POD #3. - Physical Exam Vitals/I&O's: Vital Signs Temp Pulse Resp BP Pulse Ox 98.4 F 81 16 116/73 97 07/28/20 07:40 07/28/20 07:40 07/28/20 07:40 07/28/20 07:40 07/27/20 11:44 Oxygen Delivery Method Room Air Weight: 161 lb 9.581 oz Body Mass Index (BMI) 28.6 Intake and Output for Last 24 Hours 07/26/20 07/27/20 07/28/20 23:59 23:59 23:59 Output Total 550 / 550 Balance -550 / -550 Microbiology Past 72 Hours 07/25/20 12:10 Mucosa - Nose SARS-CoV-2 Antigen (Rapid) - Final Current Medications Acetaminophen (Acetaminophen 500 Mg Tablet) 1,000 mg PO Q6 [facility] Last Admin: 07/28/20 06:02 Dose: 1,000 mg Documented by: Bisacodyl (Bisacodyl 10 Mg Suppository) 10 mg RECTAL UD PRN PRN Reason: If no BM Hydrocortisone (Hydrocortisone 2.5% Crm) 1 applic TOPICAL TID PRN PRN; Protocol PRN Reason: Discomfort Methylergonovine Maleate (Methylergonovine 0.2 Mg/Ml Ampul) 0.2 mg IM X1 PRN PRN Reason: Uterine Atony Naloxone HCl (Naloxone 0.4 Mg/Ml Syringe) 0.02 mg IV Q1M PRN PRN Reason: RR <10 and pt unresponsive Naproxen (Naproxen 250 Mg Tablet) 500 mg PO Q8H [facility] Last Admin: 07/28/20 03:01 Dose: 500 mg Documented by: Ondansetron HCl (Ondansetron 4 Mg/2 Ml Vial) 4 mg IV Q4H PRN PRN PRN Reason: Nausea Oxycodone HCl (Oxycodone 5 Mg Tablet) 5 - 10 mg PO Q4H PRN PRN PRN Reason: Pain Score 4-10 Prochlorperazine Edisylate (Prochlorperazine 10 Mg/2 Ml Vial) 10 mg IV Q6H PRN PRN PRN Reason: NAUSEA Senna/Docusate Sodium (Senna/Docusate Sodium 1 Tablet) 0 tablet PO DAILY [facility] Last Admin: 07/27/20 11:40 Dose: 2 tablet Documented by: Simethicone (Simethicone 80 Mg Tablet) 80 mg PO HS PRN PRN Reason: Indigestion/stomach pain Discharge Diet: No Restrictions Discharge Activity: May Not Drive - for 2 weeks, May not drive while taking narcotic pain medications., May Shower, May Take a Tub Bath - in 7 days May resume sexual activity in: 4-6 weeks Additional Activity Instructions:: Nothing in the vagina for 4-6 weeks. You may return to work/school in 6 weeks. Call your doctor if your incision/area has: Continuous Slow Oozing, Sudden Increased Bleeding, Increased Pain/ Swelling, Increased Redness, Foul Smelling Discharge Call your doctor if you observe: Fever of 101 or Higher, Using more than one pad per hour - for 2 hours Suture Line Care: Avoid Pulling/Pushing, Avoid Pinching/Bending Cleanse incision/area with: Keep Dressing Clean & Dry Home Medications: Medications to take at Discharge Naproxen [Naprosyn] 250 - 500 mg PO Q8H PRN PRN #30 tab 07/25/20 Oxycodone HCl/Acetaminophen [Percocet 5-325] 1 - 2 tab PO Q6H PRN PRN 7 Days #15 tab 07/25/20 Following Prescriptions Were Given to Patient: Naproxen [Naprosyn] 250 - 500 mg PO Q8H PRN PRN #30 tab PRN Reason: MILD PAIN Transmission Status: Received by ALBERTO DOUGLAS-[address] Oxycodone HCl/Acetaminophen [Percocet 5-325] 1 - 2 tab PO Q6H PRN PRN 7 Days #15 tab PRN Reason: Pain Transmission Status: Received by ALBERTO [id number] Primary Care Physician: Care Physician,No Primary [Primary Care Provider] - Please Follow Up With: Angy Gomez MD - Call to make an appointment for an incision check in 1-2 [phone] When: You will need a post- check in 6 weeks. Medical Necessity - Tobacco Use Smoking Status: Never smoker Meaningful Use Info Meaningful Use Diagnoses (Choose all that apply): None applicable
[2020-07-28] MEDS: Senna/Docusate Sodium 1 Tablet PO (10:42)
--- NOTE | 2020-07-28 11:03 | NURSING ---
Pt discharged to courtesy room. Instructions given to patient and . Information sheet signed and witnessed.
== END 2020-07-28 11:00 | disposition home or self-care (01) | DRG 539 ==
LOC: WPOUT 11:40 → WP 11:40
PROVIDERS: Admitting Provider Obstetrics & Gynecology; Referring Provider Obstetrics & Gynecology; Visit Provider Obstetrics & Gynecology
DX: O65.5 Obstructed labor due to abnormality of maternal pelvic organs (principal); O30.043 Twin pregnancy, dichorionic/diamniotic, third trimester; O34.211 Maternal care for low transverse scar from previous cesarean delivery; O32.1XX0 Maternal care for breech presentation, not applicable or unspecified; O42.919 Preterm premature rupture of membranes, unspecified as to length of time between rupture and onset of labor, unspecified trimester; Z3A.34 34 weeks gestation of pregnancy; Z37.2 Twins, both liveborn; Z30.2 Encounter for sterilization
CPT/HCPCS: 59025; 59050; 84112; 85025; 85027; 86850; 86900; 86901; 87426; 88302; 99218; J7120; A4216; G0378; J0702; J2405

== ENCOUNTER 2020-08-26 11:15 | Outpatient (CLI) | payer MEDICAID, SELFPAY | END 2020-08-26 12:00 | disposition home or self-care (01) | LOC: WPOUT 12:02 → WP 12:03 | PROVIDERS: Referring Provider Obstetrics & Gynecology; Visit Provider Obstetrics & Gynecology | DX: O92.29 Other disorders of breast associated with pregnancy and the puerperium (principal) | CPT/HCPCS: 96158; 96159 ==

== ENCOUNTER → 2021-11-22 | Outpatient (CLI) | payer MEDICAID, SELFPAY ==
--- NOTE | 2021-11-22 12:31 | US_ITS ---
STUDY: ULTRASOUND OF THE FEMALE PELVIS - COMPLETE REASON FOR EXAM: Female, 26 years old. aub LMP: Unknown. TECHNIQUE: Transabdominal and transvaginal scan. TECHNICAL QUALITY: Adequate. COMPARISON: None. FINDINGS: UTERUS: 7.9 cm length. Normal configuration. ENDOMETRIUM: Slightly thickened. 1.3 cm. Small amount of fluid or focal collection in the endometrial canal. OVARIES: Right ovary: 3.7 x 2.3 x 2.4 cm. Small 0.2 cm echogenic focus. Otherwise unremarkable. Vascular flow demonstrated. No findings to suggest ovarian torsion. Left ovary: 3.5 x 1.7 x 2.1 cm. There is a 1 x 0.2 x 0.4 cm echogenic focus. Otherwise unremarkable. Vascular flow demonstrated. No findings to suggest ovarian torsion. FREE FLUID: None. US/Pelvic (Non ) IMPRESSION: Slight endometrial thickening with small amount of fluid or fluid collection versus in the endometrium. Cannot exclude early intrauterine or ectopic based on this study. Correlate clinically with hCG levels as needed. Follow-up ultrasound can be obtained as indicated. Small echogenic structures in the ovaries may be calcifications versus small dermoids. Electronically Signed: Maria Del Rosario Olivera MD at 4:16 EDT ,
--- NOTE | 2021-11-22 12:31 | US_ITS ---
STUDY: ULTRASOUND OF THE FEMALE PELVIS - COMPLETE REASON FOR EXAM: Female, 26 years old. aub LMP: Unknown. TECHNIQUE: Transabdominal and transvaginal scan. TECHNICAL QUALITY: Adequate. COMPARISON: None. FINDINGS: UTERUS: 7.9 cm length. Normal configuration. ENDOMETRIUM: Slightly thickened. 1.3 cm. Small amount of fluid or focal collection in the endometrial canal. OVARIES: Right ovary: 3.7 x 2.3 x 2.4 cm. Small 0.2 cm echogenic focus. Otherwise unremarkable. Vascular flow demonstrated. No findings to suggest ovarian torsion. Left ovary: 3.5 x 1.7 x 2.1 cm. There is a 1 x 0.2 x 0.4 cm echogenic focus. Otherwise unremarkable. Vascular flow demonstrated. No findings to suggest ovarian torsion. FREE FLUID: None. US/Transvaginal Non- IMPRESSION: Slight endometrial thickening with small amount of fluid or fluid collection versus in the endometrium. Cannot exclude early intrauterine or ectopic based on this study. Correlate clinically with hCG levels as needed. Follow-up ultrasound can be obtained as indicated. Small echogenic structures in the ovaries may be calcifications versus small dermoids. Electronically Signed: Maria Del Rosario Olivera MD at 4:16 EDT ,
== END | disposition home or self-care (01) ==
LOC: OPUS 12:28
PROVIDERS: Visit Provider Obstetrics & Gynecology
DX: N93.9 Abnormal uterine and vaginal bleeding, unspecified (principal)
CPT/HCPCS: 76830; 76856

== ENCOUNTER → 2021-11-24 | Outpatient (CLI) | payer MEDICAID, SELFPAY ==
[2021-11-24 17:06] LABS: hCG Titer Quant., Serum < 1 mIU/mL (1-3)
== END | disposition home or self-care (01) ==
LOC: PAVLAB 15:58
PROVIDERS: Referring Provider Nurse Practitioner Women's Health; Visit Provider Nurse Practitioner Women's Health
DX: N93.9 Abnormal uterine and vaginal bleeding, unspecified (principal)
CPT/HCPCS: 36415; 84702

== ENCOUNTER → 2023-04-20 | Outpatient (CLI) | payer MEDICAID, SELFPAY ==
[2023-04-25 03:07] LABS: Chlamydia By Nucleic Acid AMP Negative (Negative); Gonococcus By Nucleic Acid AMP Negative (Negative)
== END | disposition home or self-care (01) ==
LOC: LABSPEC 14:24
PROVIDERS: Referring Provider Obstetrics & Gynecology; Visit Provider Obstetrics & Gynecology
DX: Z20.2 Contact with and (suspected) exposure to infections with a predominantly sexual mode of transmission (principal); N93.0 Postcoital and contact bleeding
CPT/HCPCS: 87070; 87205; 87491; 87591

== ENCOUNTER → 2023-05-09 | Outpatient (CLI) | payer MEDICAID, SELFPAY ==
--- NOTE | 2023-05-09 12:28 | US_ITS ---
STUDY: ULTRASOUND TRANSVAGINAL CLINICAL: Female, 27 years old. postcoital bleeding TECHNIQUE: Transvaginal COMPARISON: 11/22/2021 FINDINGS: Normal uterine size measuring 9.1 x 5.7 x 4.3 cm in maximal craniocaudal dimension. There are no myometrial masses. Normal endometrial thickness measuring 13 mm. There are no endometrial masses, and there is no fluid in the endometrial cavity. Some fluid in the endocervical canal. Normal right ovary, measuring 3.9 x 2.4 x 2.0 cm. There are multiple follicles without a dominant cyst. Normal left ovary, measuring 3.7 x 2.6 x 2.3 cm. There are multiple follicles without a dominant cyst. There is no free fluid in the pelvis. Polycystic ovary disease: No. US/Transvaginal Non- IMPRESSION: Some fluid in the endocervical canal. Electronically Signed: Santos Arango MD at 21:33 EDT ,
== END | disposition home or self-care (01) ==
LOC: OPUS 12:27
PROVIDERS: Referring Provider Obstetrics & Gynecology; Visit Provider Obstetrics & Gynecology
DX: N93.0 Postcoital and contact bleeding (principal)
CPT/HCPCS: 76830

== ENCOUNTER 2024-05-11 13:55 | Emergency (ER) | payer MEDICAID, SELFPAY ==
[2024-05-11 13:58] VITALS: BP 128/75; PULSE 101; RESP 18; TEMP 36.7; O2SAT 100; BMI 25.3
--- OUTSIDE RECORDS SUMMARY | 2024-05-11 14:21 | XMS RPT_ITS | CCD ---
Author Organization [facility] Care Team Providers Care Cable Television Access Coordinator Name Role Phone PHYSICIAN, NONE Primary Care Physician Krissy Márquez MD Primary Care Provider CAYLA ALVARADO, MILVIA Saldana Attending Unavail able PHYSICIAN, NONE Primary Care Unavailable CHERIE ZAPATA Attending Unavailable PHYSICIAN, NONE Primary Care Unavailable Krissy Santos MD Primary Care Provider PHYSICIAN, NONE Primary Care Unavailable BRYAN GORDON MD Attending Unavailable Krissy Santos MD Primary Care Provider KRISSY SANTOS Referring Unavailab KRISSY Leija Primary Care Unavailab KRISSY Leija Primary Care Unavailab KRISSY Leija Referring Unavailab ROSA Garcia Attending Unavailable KRISSY SANTOS Primary Care Unavailab KRISSY Leija Attending Unavailab KRISSY Leija Primary Care Unavailab le PODLOGPINA AGRAWAL Referring Unavailable KRISSY SANTOS Primary Care Unavailab le PODLOGARPINA Referring Unavailable PODLOGARPINA Attending Unavailable KRISSY SANTOS Primary Care Unavailab le Medications Current Medications Medication Drug Class(es) Dates Sig (Normalized) Sig (Original) amoxicillin 500 mg oral capsule (1 source) Penicillin-class Antibacterial Start: 10-07-2021 End: 10-17-2021 amoxicillin 500 mg oral capsule Dose : 500 mg = 1 cap(s), Oral, BID, X 10 day(s), # 20 cap(s), 0 Refill(s), 10/17/21 11:39:00 EDT, Dental infection Start Date: 10/07/21 Stop Date: 10/17/21 Status: Ordered naproxen 500 mg oral tablet (1 source) Nonsteroidal Anti-inflammatory Drug Start: 11-26-2021 End: 11-27-2021 naproxen 500 mg oral tablet Dose : 500 mg = 1 tab(s), Oral, BID, # 14 tab(s), 0 Refill(s), 11/27/21 9:22:00 EDT, Dysmenorrhea Start Date: 11/26/21 Stop Date: 11/27/21 Status: Ordered Completed/Discontinued Medications Medication Drug Class(es) Dates Sig (Normalized) Sig (Original) phenylephrine hydrochloride 25 mg/ml ophthalmic solution (1 source) alpha-1 Adrenergic Agonist Start: 06-01-2023 End: 06-01-2023 PHENYLephrine 2.5 % 1 Drop (AK-DILATE, FELTON-SYNEPHRINE) proparacaine hydrochloride 5 mg/ml ophthalmic solution (1 source) Local Anesthetic Start: 06-01-2023 End: 06-01-2023 proparacaine 0.5 % 1 Drop (ALCAINE) tropicamide 10 mg/ml ophthalmic solution (1 source) Anticholinergic Start: 06-01-2023 End: 06-01-2023 tropicamide 1 % 1 Drop (MYDRIACYL) Problems Active Problems Problem Classification Problem Date Documented Da te Episodic/Chronic Allergic reactions (2 sources) Allergic disposition; Translations: [Other allergy status, other than to drugs and biological substances] Episodic Blindness and vision defects (2 sources) Reduced visual acuity; Translations: [Unspecified visual loss] 05-30-2023 Chronic Blindness and vision defects (2 sources) Blurring of visual image; Translations: [Other visual disturbances] 06-01-2023 Episodic Cardiac dysrhythmias (3 sources) Palpitations; Translations: [Palpitations] Onset: 05-07-2024 05-07-2024 Episodic Diabetes mellitus without complication (2 sources) Increased glucose level; Translations: [Other abnormal glucose] Onset: 05-07-2024 05-07-2024 Episodic Disorders of teeth and jaw (1 source) Periapical abscess; Translations: [Periapical abscess without sinus] Onset: 10-07-2021 Episodic Menstrual disorders (3 sources) Dysmenorrhea; Translations: [Dysmenorrhea, unspecified] Onset: 11-26-2021 Chronic Other eye disorders (1 source) Disorder of lacrimal gland; 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] 06-01-2023 Episodic Other gastrointestinal disorders (1 source) 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; Translations: [Malabsorption due to intolerance, 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 Stretching Machine Tender Frame: AKIN Transcribe Date/Time: May 10 2024 12:48P Dictated by : TRINA MINER DO This examination was interpreted and the report reviewed and electronically signed by: TRINA MINER DO on May 10 2024 12:50PM [facility] DIVISION OF RADIOLOGY * * *Final Report* * * DATE OF EXAM: May 10 2024 12:22PM WOX [id number] - XR CHEST 2V FRONTAL/LAT / PROCEDURE REASON: Palpitations * * * * Physician Interpretation * * * * EXAMINATION: CHEST RADIOGRAPH (2 VIEW FRONTAL & LATERAL) PATIENT/TECHNOLOGIST PROVIDED HISTORY: Palpitations x 3 weeks. Zio heart monitor CLINICAL HISTORY: 28 years old Female with Palpitations MQ: XC2_6 EXAM DATE/TIME: 05/10/2024 12:22 PM COMPARISON: No relevant prior studies available. RESULT: Lines, tubes, and devices: monitoring analyst projects over the LEFT upper chest wall. Lungs and pleura: No consolidation. No pleural effusion. No pneumothorax. Cardiomediastinal silhouette: Normal cardiomediastinal silhouette. Bones and soft tissues: Unremarkable. DIVISION OF RADIOLOGY Provider, [facility] Brandy Bone - 05/10/2024 * * *Final Report* * * DATE OF EXAM: May 10 2024 12:22PM WOX [id number] - XR CHEST 2V FRONTAL/LAT / PROCEDURE REASON: Palpitations * * * * Physician Interpretation * * * * EXAMINATION: CHEST RADIOGRAPH (2 VIEW FRONTAL & LATERAL) PATIENT/TECHNOLOGIST PROVIDED HISTORY: Palpitations x 3 weeks. Zio heart monitor CLINICAL HISTORY: 28 years old Female with Palpitations MQ: XC2_6 EXAM DATE/TIME: 05/10/2024 12:22 PM COMPARISON: No relevant prior studies available. RESULT: Lines, tubes, and devices: monitoring analyst projects over the LEFT upper chest wall. Lungs and pleura: No consolidation. No pleural effusion. No pneumothorax. Cardiomediastinal silhouette: Normal cardiomediastinal silhouette. Bones and soft tissues: Unremarkable. IMPRESSION IMPRESSION: No acute radiographic abnormality. Stretching Machine Tender Frame: PSCB Transcribe Date/Time: May 10 2024 12:48P Dictated by : TRINA MINER DO This examination was interpreted and the report reviewed and electronically signed by: TRINA MINER DO on May 10 2024 12:50PM EST [facility] Radiology Study observation (narrative) [facility] XR Chest PA and LateralOrder ed By: [facility] Provider on 05-10-2024 [facility] CBC W Auto Differential pane l (Bld)on 05-07-2024 Basophils (Bld) [#/Vol] 0.03 10*3/uL Normal <0.11 [facility] Comment on above: Order Comment: Speci men Type: BLOOD SPECIMEN Ordering Facility: [facility] Address: [address] [place] [address] Performed By: #### 5 7021-8 #### [facility] CLIA [id number] [address] [place] [address] [place] Basophils/100 WBC (Bld) 0.5 % Normal [facility] Comment on above: Order Comment: Speci men Type: BLOOD SPECIMEN Ordering Facility: [facility] Address: [address] [place] [address] Performed By: #### 5 7021-8 #### [facility] CLIA [id number] [address] [place] [address] [place] Differential cell count method Nom (Bld) Auto Normal [facility] Comment on above: Order Comment: Speci men Type: BLOOD SPECIMEN Ordering Facility: [facility] Address: [address] [place] [address] Performed By: #### 5 7021-8 #### [facility] CLIA [id number] [address] [place] [address] [place] Eosinophils (Bld) [#/Vol] 0.06 10*3/uL Normal <0.46 [facility] Comment on above: Order Comment: Speci men Type: BLOOD SPECIMEN Ordering Facility: [facility] Address: [address] [place] [address] Performed By: #### 5 7021-8 #### [facility] CLIA [id number] [address] [place] [address] [place] Eosinophils/100 WBC (Bld) 0.9 % Normal [facility] Comment on above: Order Comment: Speci men Type: BLOOD SPECIMEN Ordering Facility: [facility] Address: [address] [place] [address] Performed By: #### 5 7021-8 #### [facility] CLIA [id number] [address] [place] [address] [place] Erythrocyte distribution width (RBC) [Ratio] 12.9 % Normal 11.5-15.0 [facility] Comment on above: Order Comment: Speci men Type: BLOOD SPECIMEN Ordering Facility: [facility] Address: [address] [place] [address] Performed By: #### 5 7021-8 #### [facility] CLIA [id number] [address] [place] [address] [place] Hematocrit (Bld) [Volume fraction] 44.2 % Normal 36.0-46.0 [facility] Comment on above: Order Comment: Speci men Type: BLOOD SPECIMEN Ordering Facility: [facility] Address: [address] [place] [address] Performed By: #### 5 7021-8 #### [facility] CLIA [id number] [address] [place] [address] [place] Hemoglobin (Bld) [Mass/Vol] 14.4 g/dL Normal 11.5-15.5 [facility] Comment on above: Order Comment: Speci men Type: BLOOD SPECIMEN Ordering Facility: [facility] Address: [address] [place] [address] Performed By: #### 5 7021-8 #### [facility] CLIA [id number] [address] [place] [address] [place] Immature granulocytes (Bld) [#/Vol] 10*3/uL Normal <0.10 [facility] Comment on above: Order Comment: Speci men Type: BLOOD SPECIMEN Ordering Facility: [facility] Address: [address] [place] [address] Performed By: #### 5 7021-8 #### [facility] CLIA [id number] [address] [place] [address] [place] Immature granulocytes/100 WBC (Bld) 0.3 % Normal [facility] Comment on above: Order Comment: Speci men Type: BLOOD SPECIMEN Ordering Facility: [facility] Address: [address] [place] [address] Performed By: #### 5 7021-8 #### [facility] CLIA [id number] [address] [place] [address] [place] Lymphocytes (Bld) [#/Vol] 2.08 10*3/uL Normal 1.00-4.00 [facility] Comment on above: Order Comment: Speci men Type: BLOOD SPECIMEN Ordering Facility: [facility] Address: [address] [place] [address] Performed By: #### 5 7021-8 #### [facility] CLIA [id number] [address] [place] [address] [place] Lymphocytes/100 WBC (Bld) 31.4 % Normal [facility] Comment on above: Order Comment: Speci men Type: BLOOD SPECIMEN Ordering Facility: [facility] Address: [address] [place] [address] Performed By: #### 5 7021-8 #### [facility] CLIA [id number] [address] [place] [address] [place] MCH (RBC) [Entitic mass] 27.1 pg Normal 26.0-34.0 [facility] Comment on above: Order Comment: Speci men Type: BLOOD SPECIMEN Ordering Facility: [facility] Address: [address] [place] [address] Performed By: #### 5 7021-8 #### [facility] CLIA [id number] [address] [place] [address] [place] MCHC (RBC) [Mass/Vol] 32.6 g/dL Normal 30.5-36.0 [facility] Comment on above: Order Comment: Speci men Type: BLOOD SPECIMEN Ordering Facility: [facility] Address: [address] [place] [address] Performed By: #### 5 7021-8 #### [facility] CLIA [id number] [address] [place] [address] [place] MCV (RBC) [Entitic vol] 83.2 fL Normal 80.0-100.0 [facility] Comment on above: Order Comment: Speci men Type: BLOOD SPECIMEN Ordering Facility: [facility] Address: [address] [place] [address] Performed By: #### 5 7021-8 #### [facility] CLIA [id number] [address] [place] [address] [place] Monocytes (Bld) [#/Vol] 0.53 10*3/uL Normal <0.87 [facility] Comment on above: Order Comment: Speci men Type: BLOOD SPECIMEN Ordering Facility: [facility] Address: [address] [place] [address] Performed By: #### 5 7021-8 #### [facility] CLIA [id number] [address] [place] [address] [place] Monocytes/100 WBC (Bld) 8.0 % Normal [facility] Comment on above: Order Comment: Speci men Type: BLOOD SPECIMEN Ordering Facility: [facility] Address: [address] [place] [address] Performed By: #### 5 7021-8 #### [facility] CLIA [id number] [address] [place] [address] [place] Neutrophils (Bld) [#/Vol] 3.91 10*3/uL Normal 1.45-7.50 [facility] Comment on above: Order Comment: Speci men Type: BLOOD SPECIMEN Ordering Facility: [facility] Address: [address] [place] [address] Performed By: #### 5 7021-8 #### [facility] CLIA [id number] [address] [place] [address] [place] Neutrophils/100 WBC (Bld) 58.9 % Normal [facility] Comment on above: Order Comment: Speci men Type: BLOOD SPECIMEN Ordering Facility: [facility] Address: [address] [place] [address] Performed By: #### 5 7021-8 #### [facility] CLIA [id number] [address] [place] [address] [place] Nucleated RBC (Bld) [#/Vol] 10*3/uL Normal <0.01 [facility] Comment on above: Order Comment: Speci men Type: BLOOD SPECIMEN Ordering Facility: [facility] Address: [address] [place] [address] Performed By: #### 5 7021-8 #### [facility] CLIA [id number] [address] [place] [address] [place] Nucleated RBC/100 WBC (Bld) [Ratio] 0.0 /100 WBC Normal [facility] Comment on above: Order Comment: Speci men Type: BLOOD SPECIMEN Ordering Facility: [facility] Address: [address] [place] [address] Performed By: #### 5 7021-8 #### [facility] CLIA [id number] [address] [place] [address] [place] Platelet mean volume (Bld) [Entitic vol] 11.2 fL Normal 9.0-12.7 [facility] Comment on above: Order Comment: Speci men Type: BLOOD SPECIMEN Ordering Facility: [facility] Address: [address] [place] [address] Performed By: #### 5 7021-8 #### [facility] CLIA [id number] [address] [place] [address] [place] Platelets (Bld) [#/Vol] 238 10*3/uL Normal 150-400 [facility] Comment on above: Order Comment: Speci men Type: BLOOD SPECIMEN Ordering Facility: [facility] Address: [address] [place] [address] Performed By: #### 5 7021-8 #### [facility] CLIA [id number] [address] [place] [address] [place] RBC (Bld) [#/Vol] 5.31 10*6/uL High 3.90-5.20 [facility] Comment on above: Order Comment: Speci men Type: BLOOD SPECIMEN Ordering Facility: [facility] Address: [address] [place] [address] Performed By: #### 5 7021-8 #### [facility] CLIA [id number] [address] [place] [address] [place] WBC (Bld) [#/Vol] 6.63 10*3/uL Normal 3.70-11.00 [facility] Comment on above: Order Comment: Speci men Type: BLOOD SPECIMEN Ordering Facility: [facility] Address: [address] [place] [address] Performed By: #### 5 7021-8 #### [facility] ANYIA [id number] [address] [place], [place] [address] [address] [place] CNOVon 05-07-2024 CNOV Office Visit (FAMPWS ) -- VERONICADAMONKIARA ([id number]) 1995 F GHASSAN Date Time Provider Department 05/07/24 1:40 PM PINA CORONADO During your visit today, we recorded the following information about you: Pulse Respiration Weight 100/minute 16/minute 67.6 kg Pina Coronado APRN.LOG BUYER 05/07/2024 2:50 PM Signed 05/07/2024 Patient presents with: ER F/U SUBJECTIVE: This is a 28 year old that is here today for Above Complaints.. For a couple of weeks has felt cold and tingling to left arm. Went to [facility] and they completed head CT and blood work. Told to follow-up with chiropractor. Has been seeing chiropractor which has started helping her symptoms. Apparently chiropractor told her to see PCP due to higher heart rate in office. Patient unable to tell me how high heart rate has been in his ofice. Admits to palpitations at times but not sure how often or how long they last. No accompanying visual changes, lightheadedness, dizziness, slurred speech, facial drooping, arm weakness, SOB, dyspnea,chest pain, saddle anaesthesia, urinary/bowel incontinence or inability Patient had labs from ER on phone for me to view otherwise not ER records available PAST MEDICAL HISTORY Diagnosis Date Irregular periods ALLERGIES Patient has no known allergies. MEDICATIONS No current outpatient medications on file. No current facility-administered medications for this visit. Medications and allergies reviewed by this provider. SOCIAL HISTORY Social History Tobacco Use Smoking status: Never Smokeless tobacco: Never Substance Use Topics Alcohol use: Yes Comment: socially REVIEW OF SYSTEMS All other reviewed and negative other than HPI. OBJECTIVE: Pulse 100 Resp 16 Wt 67.6 kg (149 lb 0.5 oz) LMP 05/29/2023 SpO2 96% BMI 26.40 kg/m? . Vital signs reviewed by this provider. APPEARANCE Well appearing, alert, in no acute distress, well-hydrated, well nourished. EYES conjunctiva and sclera normal. NECK Supple, no adenopathy; thyroid symmetric, normal size. FROM without pain or difficulty. Negative Spurling HEART RRR with normal S1 and S2, no murmurs, no gallops, no JVD appreciated LUNG clear to auscultation EXTREMITIES Extremities normal, No deformities, No skin discoloration, and No edema SKIN Skin color, texture, turgor normal, no suspicious rashes or lesions LEFT ARM and Shoulder: no obvious deformity, swelling, erythema or muscle wasting. FROM with pain or difficultly. Hand grasps equal and strong. Reflexes WNL. 2+ radial pulse with cap refill WNL. Negative Minor and NEMEÑO Depression Screening Never done Anxiety Screening Never done Hepatitis C Screening Never done HIV Screening Never done Hepatitis B Vaccine(1 of 3 - 19+ 3-dose series) Never done Cervical Cancer Screening Never done Influenza Vaccine(1) due on 03/17/2024 Covid-19 Vaccine(2023- season) due on 03/17/2024 DTaP,Tdap,Td Vaccine(2 - Td or Tdap) due on 02/13/2029 HPV Vaccine Aged Out ASSESSMENT/PLAN: 1. Palpitations - ICD9: 785.1, ICD10: R00.2 (primary diagnosis) - no red flag symptoms or exam findings - red flag symptoms discussed, verbalizes understanding - ECG COMPLETE - COMPREHENSIVE METABOLIC PANEL - COMPLETE BLOOD COUNT AND DIFFERENTIAL - MAGNESIUM - XR CHEST 2V FRONTAL/LAT - THYROID STIMULATING HORMONE - OUTSIDE VENDOR CARDIAC OUTPATIENT EXTENDED RHYTHM RECORDING (WITHOUT TELEMETRY)EKG Interpretation: RHYTHM: Normal sinus rhythm at 98 beats per minute AXIS: Normal axis INTERVALS: Normal FL interval QRS COMPLEX: Normal ST SEGMENT: Nonspecific ST-T changes QT INTERVAL: Normal - follow-up pending testing to ER with red flag symptoms 2. Elevated glucose - ICD9: 790.29, ICD10: R73.09 - blood sugar 113 on labs from hospital- likely due to non fasting status but patient concerned - HEMOGLOBIN A1C 3. Numbness and tingling in left arm - ICD9: 782.0, ICD10: R20.0, R20.2 - improving - continue with chiropractor - no red flag symptoms or exam findings - red flag symptoms discussed, verbalizes understanding - follow-up as needed Pina Coronado APRN.CNP Prescription instructions reviewed with patient as applicable. Patient advised if symptoms do not improve or if symptoms worsen sooner, to contact their primary care physician. Potential red flag symptoms discussed with the patient. Reviewed appropriate action plan to take if red flag symptoms occur. Patient agreeable to treatment plan. Medical Decision Making: Problems: Moderate: New problem with uncertain prognosis Data: Unique test(s) ordered: 3+ Risk: Moderate: Moderate risk from testing/treatment Medical Decision Making Level: 4 - Moderate Pina Coronado APRN.CNP 05/07/2024 2:20 PM Signed Check with insurance to see if they cover Zio patch Allergies As of Date: 05/07/2024 (No Known Allergies) Date Re (more content not included)... Normal [facility] Comprehensive metabolic 2000 panelon 05-07-2024 Albumin [Mass/Vol] 4.7 g/dL Normal 3.9-4.9 [facility] Comment on above: Order Comment: Speci men Type: BLOOD SPECIMEN Ordering Facility: [facility] Address: [address] [place] [address] Performed By: #### 2 4323-8, 3, #### [facility] CLIA [id number] [address] [place] [address] [place] ALP [Catalytic activity/Vol] 62 U/L Normal 34-123 [facility] Comment on above: Order Comment: Speci men Type: BLOOD SPECIMEN Ordering Facility: [facility] Address: [address] [place] [address] Performed By: #### 2 4323-8, 3015-3, #### [facility] CLIA [id number] [address] [place], [place] [address] [place] ALT [Catalytic activity/Vol] 16 U/L Normal 7-38 [facility] Comment on above: Order Comment: Speci men Type: BLOOD SPECIMEN Ordering Facility: [facility] Address: [address] [place] [address] Performed By: #### 2 4323-8, 3015-3, #### [facility] CLIA [id number] [address] [place], [place] [address] [place] Anion gap [Moles/Vol] 12 mmol/L Normal 8-15 [facility] Comment on above: Order Comment: Speci men Type: BLOOD SPECIMEN Ordering Facility: [facility] Address: [address] [place] [address] Performed By: #### 2 4323-8, 3, #### [facility] CLIA [id number] [address] [place] [address] [place] AST [Catalytic activity/Vol] 22 U/L Normal 13-35 [facility] Comment on above: Order Comment: Speci men Type: BLOOD SPECIMEN Ordering Facility: [facility] Address: [address] [place] [address] Performed By: #### 2 4323-8, 3, #### [facility] CLIA [id number] [address] [place] [address] [place] Bilirubin [Mass/Vol] 0.5 mg/dL Normal 0.2-1.3 [facility] Comment on above: Order Comment: Speci men Type: BLOOD SPECIMEN Ordering Facility: [facility] Address: [address] [place], [place] [address] Performed By: #### 2 4323-8, 3, #### [facility] CLIA [id number] [address] [place], [place] [address] [place] Calcium [Mass/Vol] 9.6 mg/dL Normal 8.5-10.2 [facility] Comment on above: Order Comment: Speci men Type: BLOOD SPECIMEN Ordering Facility: [facility] Address: [address] [place] [address] Performed By: #### 2 4323-8, 3015-3, #### [facility] CLIA [id number] [address] [place] [address] [place] Chloride [Moles/Vol] 104 mmol/L Normal 98-107 [facility] Comment on above: Order Comment: Speci men Type: BLOOD SPECIMEN Ordering Facility: [facility] Address: [address] [place] [address] Performed By: #### 2 4323-8, 3015-3, #### [facility] CLIA [id number] [address] [place] [address] [place] CO2 [Moles/Vol] 24 mmol/L Normal 22-30 [facility] Comment on above: Order Comment: Speci men Type: BLOOD SPECIMEN Ordering Facility: [facility] Address: [address] [place] [address] Performed By: #### 2 4323-8, 3, #### [facility] CLIA [id number] [address] [place] [address] [place] Creatinine [Mass/Vol] 0.62 mg/dL Normal 0.58-0.96 [facility] Comment on above: Order Comment: Speci men Type: BLOOD SPECIMEN Ordering Facility: [facility] Address: [address] [place] [address] Performed By: #### 2 4323-8, 3, #### [facility] CLIA [id number] [address] [place] [address] [place] Creatinine and Glomerular filtration rate.predicted panel (S/P/Bld) 125 mL/min/1.73m??? Normal >=60 [facility] Comment on above: Order Comment: Speci men Type: BLOOD SPECIMEN Ordering Facility: [facility] Address: [address] [place] [address] Result Comment: Yovana mated Glomerular Filtration Rate (eGFR) is calculated using the 2020 CKD-EPI creatinine equation. This equation utilizes serum creatinine, sex, and age as parameters. The creatinine assay has traceable calibration to isotope dilution-mass spectrometry. Refer to KDIGO guidelines for clinical interpretation. In patients with unstable renal function, e.g. those with acute kidney injury, the eGFR may not accurately reflect actual GFR. Performed By: #### 2 4323-8, 3015-3, #### [facility] CLIA [id number] [address] [place] [address] [place] Glucose [Mass/Vol] 93 mg/dL Normal 74-99 [facility] Comment on above: Order Comment: Sundeep sadler Type: BLOOD SPECIMEN Ordering Facility: [facility] Address: [address] [place] [address] Result Comment: The [place] [employer] (ADA) provides guidance for cutoff values for fasting glucose and random glucose. The ADA defines fasting as no caloric intake for at least 8 hours. Fasting plasma glucose results between 100 to 125 mg/dL indicate increased risk for diabetes (prediabetes). Fasting plasma glucose results greater than or equal to 126 mg/dL meet the criteria for diagnosis of diabetes. In the absence of unequivocal hyperglycemia, results should be confirmed by repeat testing. In a patient with classic symptoms of hyperglycemia or hyperglycemic crisis, random plasma glucose results greater than or equal to 200 mg/dL meet the criteria for diagnosis of diabetes. Reference: Standards of Medical Care in Diabetes 2016, [place] [employer]. Diabetes Care. 2016.39(Suppl 1). Performed By: #### 2 4323-8, 3015-3, #### [facility] CLIA [id number] [address] [place], [place] [address] [place] Potassium [Moles/Vol] 4.3 mmol/L Normal 3.7-5.1 [facility] Comment on above: Order Comment: Sundeep men Type: BLOOD SPECIMEN Ordering Facility: [facility] Address: [address] [place], [place] [address] Performed By: #### 2 4323-8, 6-3, #### [facility] CLIA [id number] [address] [place] [address] [place] Protein [Mass/Vol] 7.5 g/dL Normal 6.3-8.0 [facility] Comment on above: Order Comment: Speci men Type: BLOOD SPECIMEN Ordering Facility: [facility] Address: [address] [place] [address] Performed By: #### 2 4323-8, 3015-3, #### [facility] CLIA [id number] [address] [place] [address] [place] Sodium [Moles/Vol] 140 mmol/L Normal 136-144 [facility] Comment on above: Order Comment: Speci men Type: BLOOD SPECIMEN Ordering Facility: [facility] Address: [address] [place] [address] Performed By: #### 2 4323-8, 3015-3, #### [facility] CLIA [id number] [address] [place] [address] [place] Urea nitrogen [Mass/Vol] 10 mg/dL Normal 7-21 [facility] Comment on above: Order Comment: Speci men Type: BLOOD SPECIMEN Ordering Facility: [facility] Address: [address] [place] [address] Performed By: #### 2 4323-8, 3015-3, #### [facility] CLIA [id number] [address] [place], [place] [address] [place] Magnesium SerPl-mCncon 05-07 Magnesium [Mass/Vol] 1.9 mg/dL Normal 1.7-2.3 [facility] Comment on above: Order Comment: Speci men Type: BLOOD SPECIMEN Ordering Facility: [facility] Address: [address] [place] [address] Performed By: #### 2 4323-8, 3016-3, 05663-2 #### [facility] CLIA [id number] [address] [place] [address] [place] TSH SerPl-aCncon 05-07-2024 TSH Qn 0.667 m[IU]/L Normal 0.270-4.200 [facility] Comment on above: Order Comment: Speci men Type: BLOOD SPECIMEN Ordering Facility: [facility] Address: [address] [place] [address] Result Comment: If t he patient is , TSH reference range varies by gestational period: First Trimester (weeks 9-12): 0.180-2.990 mIU/L Second Trimester: 0.110-3.980 mIU/L Third Trimester: 0.480-4.710 mIU/L Siddharth Rowan et al. A Practical Approach for the Verifications and Determination of Site- and Trimester-Specific Reference Intervals for Thyroid Function tests in . Thyroid, 2019:29:3:412-420. Josep Saldana, et al. 2017 Guidelines of the [place] Thyroid Association for the Diagnosis and Management of Thyroid Disease during and the . Thyroid, 2017:27:3:315-389. Performed By: #### 2 4323-8, 3016-3, #### [facility] CLIA [id number] [address] [place] [address] [place] CNCOon 05-06-2024 CNCO Letter Text Normal [facility] .Auto Diffon 04-28-2024 Basophil, Absolute 0.0 10 3/mcL Normal 0.0-0.2 [facility] Comment on above: Performed By: #### A DIFF, ANEU, CBC, GFR, BMP, MDW #### [address] [address] Basophils/100 WBC (Bld) 0.4 % Normal 0.0-2.5 [facility] Comment on above: Performed By: #### A DIFF, ANEU, CBC, GFR, BMP, MDW #### [address] [address] Eosinophil, Absolute 0.1 10 3/mcL Normal 0.0-0.7 [facility] Comment on above: Performed By: #### A DIFF, ANEU, CBC, GFR, BMP, MDW #### [address] [address] Eosinophils/100 WBC (Bld) 1.2 % Normal 0.0-7.0 [facility] Comment on above: Performed By: #### A DIFF, ANEU, CBC, GFR, BMP, MDW #### [address] [address] Lymphocyte, Absolute 2.9 10 3/mcL Normal 0.9-4.3 [facility] Comment on above: Performed By: #### A DIFF, ANEU, CBC, GFR, BMP, MDW #### [address] [address] Lymphocytes/100 WBC (Bld) 30.6 % Normal 20.0-40.0 [facility] Comment on above: Performed By: #### A DIFF, ANEU, CBC, GFR, BMP, MDW #### [address] [address] Monocyte, Absolute 0.7 10 3/mcL Normal 0.1-1.4 [facility] Comment on above: Performed By: #### A DIFF, ANEU, CBC, GFR, BMP, MDW #### [address] [address] Monocytes/100 WBC (Bld) 7.3 % Normal 2.0-13.0 [facility] Comment on above: Performed By: #### A DIFF, ANEU, CBC, GFR, BMP, MDW #### [address] [address] Neutrophils/100 WBC (Bld) 60.5 % Normal 50.0-75.0 [facility] Comment on above: Performed By: #### A DIFF, ANEU, CBC, GFR, BMP, MDW #### [address] [address] .GFRon 04-28-2024 GFR Non- 110 ml/min/1.73sqm Normal [facility] Comment on above: Result Comment: GFR Population mean for , Non- Americans Ages 20-29 = 116 mL/min/1.73 sq.m. Ages 30-39 = 107 mL/min/1.73 sq.m. Ages 40-49 = 99 mL/min/1.73 sq.m. Ages 50-59 = 93 mL/min/1.73 sq.m. Ages 60-69 = 85 mL/min/1.73 sq.m. Ages 70+ = 75 mL/min/1.73 sq.m. Chronic Kidney Disease: Less than 60 mL/min/1.73 square meters End Stage Renal Disease: Less than 15 mL/min/1.73 square meters Performed By: #### A DIFF, ANEU, CBC, GFR, BMP, MDW #### [address] [address] GFR 134 ml/min/1.73sqm Normal [facility] Comment on above: Result Comment: GFR Population mean for , Non- Americans Ages 20-29 = 116 mL/min/1.73 sq.m. Ages 30-39 = 107 mL/min/1.73 sq.m. Ages 40-49 = 99 mL/min/1.73 sq.m. Ages 50-59 = 93 mL/min/1.73 sq.m. Ages 60-69 = 85 mL/min/1.73 sq.m. Ages 70+ = 75 mL/min/1.73 sq.m. Chronic Kidney Disease: Less than 60 mL/min/1.73 square meters End Stage Renal Disease: Less than 15 mL/min/1.73 square meters Performed By: #### A DIFF, ANEU, CBC, GFR, BMP, MDW #### [address] [address] .MDWon 04-28-2024 Monocyte Distribution Width 17.62 Normal 0.00-20.00 [facility] Comment on above: Result Comment: For ED adult patients suspected of sepsis, MDW<=20.0 does not rule out sepsis or risk of sepsis Performed By: #### A DIFF, ANEU, CBC, GFR, BMP, MDW #### [address] [address] .NEUABSon 04-28-2024 Neutrophil, Absolute 5.7 10 3/mcL Normal 2.3-8.1 [facility] Comment on above: Performed By: #### A DIFF, ANEU, CBC, GFR, BMP, W #### [address] [address] BMPon 04-28-2024 BUN/Creatinine Ratio 17 ratio Normal 7-27 [facility] Comment on above: Performed By: #### A DIFF, ANEU, CBC, GFR, BMP, BRANT #### [place] [address] Calcium [Mass/Vol] 9.3 mg/dL Normal 8.4-10.2 [facility] Comment on above: Performed By: #### A DIFF, ANEU, CBC, GFR, BMP, BRANT #### [address] [address] Chloride [Moles/Vol] 102 mmol/L Normal 98-107 [facility] Comment on above: Performed By: #### A DIFF, ANEU, CBC, GFR, BMP, BRANT #### [place] [address] CO2 [Moles/Vol] 26 mmol/L Normal 22-29 [facility] Comment on above: Performed By: #### A DIFF, ANEU, CBC, GFR, BMP, BRANT #### [address] [address] Creatinine [Mass/Vol] 0.64 mg/dL Normal 0.55-1.02 [facility] Comment on above: Result Comment: Test ing performed on Siemens Dimension EXL analyzer using a modified kinetic Elayne technique. Performed By: #### A DIFF, ANEU, CBC, GFR, BMP, BRANT #### [place] [address] Electrolyte Balance 12.0 mEq/L Normal 4.0-15.0 [facility] Comment on above: Performed By: #### A DIFF, ANEU, CBC, GFR, BMP, MDW #### [address] [address] Glucose [Mass/Vol] 113 mg/dL High 70-105 [facility] Comment on above: Performed By: #### A DIFF, ANEU, CBC, GFR, BMP, W #### [place] [address] Potassium [Moles/Vol] 3.6 mmol/L Normal 3.5-5.1 [facility] Comment on above: Performed By: #### A DIFF, ANEU, CBC, GFR, BMP, W #### [place] [address] Sodium [Moles/Vol] 140 mmol/L Normal 136-145 [facility] Comment on above: Performed By: #### A DIFF, ANEU, CBC, GFR, BMP, BRANT #### [place] [address] Urea nitrogen [Mass/Vol] 11 mg/dL Normal 7-18 [facility] Comment on above: Performed By: #### A DIFF, ANEU, CBC, GFR, BMP, W #### [address] [address] CBCon 04-28-2024 Erythrocyte distribution width (RBC) [Ratio] 13.8 % Normal 11.5-15.5 [facility] Comment on above: Performed By: #### A DIFF, ANEU, CBC, GFR, BMP, MDW #### [address] [address] Hematocrit (Bld) [Volume fraction] 42.4 % Normal 34.0-46.0 [facility] Comment on above: Performed By: #### A DIFF, ANEU, CBC, GFR, BMP, MDW #### [place] [address] Hgb 14.8 G/dL Normal 12.0-16.0 [facility] Comment on above: Performed By: #### A DIFF, ANEU, CBC, GFR, BMP, MDW #### [address] [address] MCH (RBC) [Entitic mass] 28.6 pg Normal 27.0-33.0 [facility] Comment on above: Performed By: #### A DIFF, ANEU, CBC, GFR, BMP, MDW #### [place] [address] MCHC 34.9 G/dL Normal 32.0-36.0 [facility] Comment on above: Performed By: #### A DIFF, ANEU, CBC, GFR, BMP, MDW #### [place] [address] MCV (RBC) [Entitic vol] 82.1 fL Normal 80.0-99.0 [facility] Comment on above: Performed By: #### A DIFF, ANEU, CBC, GFR, BMP, MDW #### [place] [address] Platelet 197 10 3/mcL Normal 150-450 [facility] Comment on above: Performed By: #### A DIFF, ANEU, CBC, GFR, BMP, MDW #### [address] [address] Platelet mean volume (Bld) [Entitic vol] 8.6 fL Normal 6.6-10.5 [facility] Comment on above: Performed By: #### A DIFF, ANEU, CBC, GFR, BMP, MDW #### [address] [address] RBC 5.16 10 6/mcL Normal 4.10-5.30 [facility] Comment on above: Performed By: #### A DIFF, ANEU, CBC, GFR, BMP, MDW #### [place] [id number] WBC 9.4 10 3/mcL Normal 4.5-10.8 [facility] Comment on above: Performed By: #### A DIFF, ANEU, CBC, GFR, BMP, MDW #### [place] [address] [place], [place] [address] CT HEAD OR BRAIN W/O CONTRAS Ton 04-28-2024 CT HEAD OR BRAIN W/O CONTRAST ORIGINAL EXAMINATION: CT OF THE HEAD WITHOUT CWRYOIKW02/13/2024 10:[address] HEAD/BRAIN WITHOUT CONTRAST EXAM DESCRIPTION: TECHNIQUE: CT of the head was performed without the administration of intravenous contrast. Automated exposure control, iterative reconstruction, and/or weight based adjustment of the mA/kV was utilized to reduce the radiation dose to as low as reasonably achievable. COMPARISON: None available HISTORY: ORDERING SYSTEM PROVIDED HISTORY: Reason for Exam: pain FINDINGS: The size, density, and morphology of the brain and CSF containing spaces appears normal. There is no evidence of mass, midline shift, hemorrhage, or infract. The ventricles, cortical sulci, and subarachnoid cisterns appear unremarkable. There are no extra-axial fluid collections. No regions of pathologic attenuation are evident. Regions of the orbits and paranasal sinuses included within the field of view are unremarkable. There is no displaced fracture or osseous neoplasm. The extracalvarial soft tissues appear unremarkable. IMPRESSION: No acute intracranial pathology. COMMENT: Changes resultant from ischemia (even significant ischemia) may often be inapparent on CT exam, particularly if imaged early. Additionally, early changes due to neoplastic or inflammatory processes can be subtle to the extent that they are not prospectively noted. Therefore, if symptoms persist, or clinical suspicion for pathology remains, further evaluation may be obtained with MRI. Interpreted by: Manny Garrido MD Preliminary Report By: Manny Garrido MD Electronically signed By Manny Garrido MD Dictated Date: 04/28/2024 10:47:44 PM Prelim Date: 04/28/2024 10:48:29 PM Sign Date: 04/28/2024 10:48:29 PM Ordering Provider: BRYAN Lazar [facility] CT SPINE CERVICAL W/O CONTRA STon 04-28-2024 CT SPINE CERVICAL W/O CONTRAST ORIGINAL EXAMINATION: CT OF THE CERVICAL SPINE WITHOUT CONTRAST 04/28/2024 10:45 pm TECHNIQUE: CT of the cervical spine was performed without the administration of intravenous contrast. Multiplanar reformatted images are provided for review. Automated exposure control, iterative reconstruction, and/or weight based adjustment of the mA/kV was utilized to reduce the radiation dose to as low as reasonably achievable. COMPARISON: None. HISTORY: ORDERING SYSTEM PROVIDED HISTORY: Reason for Exam: numbness and tingling down left arm off and on for several weeks pain FINDINGS: BONES/ALIGNMENT: There is no acute fracture or traumatic malalignment. DEGENERATIVE CHANGES: No significant degenerative changes. SOFT TISSUES: There is no prevertebral soft tissue swelling. IMPRESSION: No acute abnormality of the cervical spine. Interpreted by: Manny Garrido MD Preliminary Report By: Manny Garrido MD Electronically signed By Manny Garrido MD Dictated Date: 04/28/2024 10:48:39 PM Prelim Date: 04/28/2024 10:55:34 PM Sign Date: 04/28/2024 10:55:34 PM Ordering Provider: BRYAN Lazar [facility]ORATORYOrdered By: SYSTEM SYSTEM on 04-28-2024 Basophils (Bld) [#/Vol] 0.0 103/mcL Normal 0.0 - 0.2 10^3/mcL AO Workflow SS Basophils/100 WBC (Bld) 0.4 % Normal 0.0 - 2.5 % AO Workflow SS Calcium [Mass/Vol] 9.3 mg/dL Normal 8.4 - 10. 2 mg/dL AO ADM SS Chloride [Moles/Vol] 102 mmol/L Normal 98 - 10 7 mmol/L AO ADM SS CO2 [Moles/Vol] 26 mmol/L Normal 22 - 29 mmol/L AO ADM SS Creatinine [Mass/Vol] 0.64 mg/dL Normal 0.55 - 1.02 mg/dL AO ADM SS Comment on above: Interpretive Data: T esting performed on Siemens Dimension EXL analyzer using a modified kinetic Elayne technique. Electrolyte Balance 12.0 mEq/L Normal 4.0 - 15 .0 mEq/L AO ADM SS Eosinophil, Absolute 0.1 103/mcL Normal 0.0 - 0 .7 10^3/mcL AO Workflow SS Eosinophils/100 WBC (Bld) 1.2 % Normal 0.0 - 7.0 % AO Workflow SS Erythrocyte distribution width (RBC) [Ratio] 13.8 % Normal 11.5 - 15.5 % AO Workflow SS GFR/1.73 sq M.predicted among blacks MDRD (S/P/Bld) [Vol rate/Area] 134 ml/min/1.73sqm Invalid Interpretation Code AO Chemistry S Comment on above: Interpretive Data: GFR Population mean for , Non- Americans Ages 20-29 = 116 mL/min/1.73 sq.m. Ages 30-39 = 107 mL/min/1.73 sq.m. Ages 40-49 = 99 mL/min/1.73 sq.m. Ages 50-59 = 93 mL/min/1.73 sq.m. Ages 60-69 = 85 mL/min/1.73 sq.m. Ages 70+ = 75 mL/min/1.73 sq.m. Chronic Kidney Disease: Less than 60 mL/min/1.73 square meters End Stage Renal Disease: Less than 15 mL/min/1.73 square meters GFR/1.73 sq M.predicted among non-blacks MDRD (S/P/Bld) [Vol rate/Area] 110 ml/min/1.73sqm Invalid Interpretation Code AO Chemistry S Comment on above: Interpretive Data: GFR Population mean for , Non- Americans Ages 20-29 = 116 mL/min/1.73 sq.m. Ages 30-39 = 107 mL/min/1.73 sq.m. Ages 40-49 = 99 mL/min/1.73 sq.m. Ages 50-59 = 93 mL/min/1.73 sq.m. Ages 60-69 = 85 mL/min/1.73 sq.m. Ages 70+ = 75 mL/min/1.73 sq.m. Chronic Kidney Disease: Less than 60 mL/min/1.73 square meters End Stage Renal Disease: Less than 15 mL/min/1.73 square meters Glucose [Mass/Vol] 113 mg/dL High 70 - 105 mg/dL AO ADM SS Hematocrit (Bld) [Volume fraction] 42.4 % Normal 34.0 - 46.0 % AO Workflow SS Hemoglobin (Bld) [Mass/Vol] 14.8 G/dL Normal 12.0 - 16.0 G/dL AO Workflow SS Lymphocytes (Bld) [#/Vol] 2.9 103/mcL Normal 0.9 - 4.3 10^3/mcL AO Workflow SS Lymphocytes/100 WBC (Bld) 30.6 % Normal 20.0 - 40.0 % AO Workflow SS MCH (RBC) [Entitic mass] 28.6 pg Normal 27.0 - 33.0 pg AO Workflow SS MCHC 34.9 G/dL Normal 32.0 - 36.0 G/dL AO Workflow SS MCV (RBC) [Entitic vol] 82.1 fL Normal 80.0 - 99.0 fL AO Workflow SS Monocyte distribution width Auto (Bld) [Entitic vol] 17.62 1 Normal 0.00 - 20.00 AO Workflow SS Comment on above: Result Comment: For ED adult patients suspected of sepsis, MDW<=20.0 does not rule out sepsis or risk of sepsis Monocytes (Bld) [#/Vol] 0.7 103/mcL Normal 0.1 - 1.4 10^3/mcL AO Workflow SS Monocytes/100 WBC (Bld) 7.3 % Normal 2.0 - 13.0 % AO Workflow SS Neutrophils (Bld) [#/Vol] 5.7 103/mcL Normal 2.3 - 8.1 10^3/mcL AO Workflow SS Neutrophils/100 WBC (Bld) 60.5 % Normal 50.0 - 75.0 % AO Workflow SS Platelet mean volume (Bld) [Entitic vol] 8.6 fL Normal 6.6 - 10.5 fL AO Workflow SS Platelets (Bld) [#/Vol] 197 103/mcL Normal 150 - 450 10^3/mcL AO Workflow SS Potassium [Moles/Vol] 3.6 mmol/L Normal 3.5 - 5.1 mmol/L AO ADM SS RBC (Bld) [#/Vol] 5.16 106/mcL Normal 4.10 - 5.3 0 10^6/mcL AO Workflow SS Sodium [Moles/Vol] 140 mmol/L Normal 136 - 145 mmol/L AO ADM SS Urea nitrogen [Mass/Vol] 11 mg/dL Normal 7 - 18 mg/dL AO ADM SS Urea nitrogen/Creatinine [Mass ratio] 17 ratio Normal 7 - 27 ratio AO ADM SS WBC (Bld) [#/Vol] 9.4 103/mcL Normal 4.5 - 10.8 10^3/mcL AO Workflow SS CBC W Auto Differential pane l (Bld)on 06-01-2023 Basophils (Bld) [#/Vol] 0.04 10*3/uL Normal <0.11 [facility] Comment on above: Order Comment: Speci men Type: BLOOD SPECIMEN Ordering Facility: [facility] Address: [address] [place], [place] [address] Performed By: #### 5 7021-8 #### [facility] CLIA [id number] [address] [place] [address] [place] Basophils/100 WBC (Bld) 0.5 % Normal [facility] Comment on above: Order Comment: Speci men Type: BLOOD SPECIMEN Ordering Facility: [facility] Address: [address] [place] [address] Performed By: #### 5 7021-8 #### [facility] CLIA [id number] [address] [place] [address] [place] Differential cell count method Nom (Bld) Auto Normal [facility] Comment on above: Order Comment: Speci men Type: BLOOD SPECIMEN Ordering Facility: [facility] Address: [address] [place] [address] Performed By: #### 5 7021-8 #### [facility] CLIA [id number] [address] [place] [address] [place] Eosinophils (Bld) [#/Vol] 0.18 10*3/uL Normal <0.46 [facility] Comment on above: Order Comment: Speci men Type: BLOOD SPECIMEN Ordering Facility: [facility] Address: [address] [place] [address] Performed By: #### 5 7021-8 #### [facility] CLIA [id number] [address] [place] [address] [place] Eosinophils/100 WBC (Bld) 2.4 % Normal [facility] Comment on above: Order Comment: Speci men Type: BLOOD SPECIMEN Ordering Facility: [facility] Address: [address] [place] [address] Performed By: #### 5 7021-8 #### [facility] CLIA [id number] [address] [place] [address] [place] Erythrocyte distribution width (RBC) [Ratio] 12.4 % Normal 11.5-15.0 [facility] Comment on above: Order Comment: Speci men Type: BLOOD SPECIMEN Ordering Facility: [facility] Address: [address] [place] [address] Performed By: #### 5 7021-8 #### [facility] CLIA [id number] [address] [place] [address] [place] Hematocrit (Bld) [Volume fraction] 41.8 % Normal 36.0-46.0 [facility] Comment on above: Order Comment: Speci men Type: BLOOD SPECIMEN Ordering Facility: [facility] Address: [address] [place] [address] Performed By: #### 5 7021-8 #### [facility] CLIA [id number] [address] [place] [address] [place] Hemoglobin (Bld) [Mass/Vol] 14.3 g/dL Normal 11.5-15.5 [facility] Comment on above: Order Comment: Speci men Type: BLOOD SPECIMEN Ordering Facility: [facility] Address: [address] [place] [address] Performed By: #### 5 7021-8 #### [facility] CLIA [id number] [address] [place] [address] [place] Immature granulocytes (Bld) [#/Vol] 10*3/uL Normal <0.10 [facility] Comment on above: Order Comment: Speci men Type: BLOOD SPECIMEN Ordering Facility: [facility] Address: [address] [place] [address] Performed By: #### 5 7021-8 #### [facility] CLIA [id number] [address] [place] [address] [place] Immature granulocytes/100 WBC (Bld) 0.3 % Normal [facility] Comment on above: Order Comment: Speci men Type: BLOOD SPECIMEN Ordering Facility: [facility] Address: [address] [place] [address] Performed By: #### 5 7021-8 #### [facility] CLIA [id number] [address] [place] [address] [place] Lymphocytes (Bld) [#/Vol] 2.42 10*3/uL Normal 1.00-4.00 [facility] Comment on above: Order Comment: Speci men Type: BLOOD SPECIMEN Ordering Facility: [facility] Address: [address] [place] [address] Performed By: #### 5 7021-8 #### [facility] CLIA [id number] [address] [place] [address] [place] Lymphocytes/100 WBC (Bld) 32.8 % Normal [facility] Comment on above: Order Comment: Speci men Type: BLOOD SPECIMEN Ordering Facility: [facility] Address: [address] [place] [address] Performed By: #### 5 7021-8 #### [facility] CLIA [id number] [facility] [place] [address] [place] MCH (RBC) [Entitic mass] 28.7 pg Normal 26.0-34.0 [facility] Comment on above: Order Comment: Speci men Type: BLOOD SPECIMEN Ordering Facility: [facility] Address: [address] [place] [address] Performed By: #### 5 7021-8 #### [facility] CLIA [id number] [address] [place] [address] [place] MCHC (RBC) [Mass/Vol] 34.2 g/dL Normal 30.5-36.0 [facility] Comment on above: Order Comment: Speci men Type: BLOOD SPECIMEN Ordering Facility: [facility] Address: [address] [place] [address] Performed By: #### 5 7021-8 #### [facility] CLIA [id number] [address] [place] [address] [place] MCV (RBC) [Entitic vol] 83.9 fL Normal 80.0-100.0 [facility] Comment on above: Order Comment: Speci men Type: BLOOD SPECIMEN Ordering Facility: [facility] Address: [address] [place] [address] Performed By: #### 5 7021-8 #### [facility] CLIA [id number] [address] [place] [address] [place] Monocytes (Bld) [#/Vol] 0.47 10*3/uL Normal <0.87 [facility] Comment on above: Order Comment: Speci men Type: BLOOD SPECIMEN Ordering Facility: [facility] Address: [address] [place] [address] Performed By: #### 5 7021-8 #### [facility] CLIA [id number] [address] [place] [address] [place] Monocytes/100 WBC (Bld) 6.4 % Normal [facility] Comment on above: Order Comment: Speci men Type: BLOOD SPECIMEN Ordering Facility: [facility] Address: [address] [place] [address] Performed By: #### 5 7021-8 #### [facility] CLIA [id number] [address] [place] [address] [place] Neutrophils (Bld) [#/Vol] 4.24 10*3/uL Normal 1.45-7.50 [facility] Comment on above: Order Comment: Speci men Type: BLOOD SPECIMEN Ordering Facility: [facility] Address: [address] [place] [address] Performed By: #### 5 7021-8 #### [facility] CLIA [id number] [address] [place] [address] [place] Neutrophils/100 WBC (Bld) 57.6 % Normal [facility] Comment on above: Order Comment: Speci men Type: BLOOD SPECIMEN Ordering Facility: [facility] Address: [address] [place] [address] Performed By: #### 5 7021-8 #### [facility] CLIA [id number] [address] [place] [address] [place] Nucleated RBC (Bld) [#/Vol] 10*3/uL Normal <0.01 [facility] Comment on above: Order Comment: Speci men Type: BLOOD SPECIMEN Ordering Facility: [facility] Address: [address] [place] [address] Performed By: #### 5 7021-8 #### [facility] CLIA [id number] [address] [place] [address] [place] Nucleated RBC/100 WBC (Bld) [Ratio] 0.0 /100 WBC Normal [facility] Comment on above: Order Comment: Speci men Type: BLOOD SPECIMEN Ordering Facility: [facility] Address: [address] [place] [address] Performed By: #### 5 7021-8 #### [facility] CLIA [id number] [address] [place] [address] [place] Platelet mean volume (Bld) [Entitic vol] 10.5 fL Normal 9.0-12.7 [facility] Comment on above: Order Comment: Speci men Type: BLOOD SPECIMEN Ordering Facility: [facility] Address: [address] [place] [address] Performed By: #### 5 7021-8 #### [facility] CLIA [id number] [address] [place] [address] [place] Platelets (Bld) [#/Vol] 235 10*3/uL Normal 150-400 [facility] Comment on above: Order Comment: Speci men Type: BLOOD SPECIMEN Ordering Facility: [facility] Address: [address] [place] [address] Performed By: #### 5 7021-8 #### [facility] CLIA [id number] [address] [place] [address] [place] RBC (Bld) [#/Vol] 4.98 10*6/uL Normal 3.90-5.20 [facility] Comment on above: Order Comment: Rahi men Type: BLOOD SPECIMEN Ordering Facility: [facility] Address: [address] [place] [address] Performed By: #### 5 7021-8 #### [facility] CLIA [id number] [address] [place] [address] [place] WBC (Bld) [#/Vol] 7.37 10*3/uL Normal 3.70-11.00 [facility] Comment on above: Order Comment: Sundeep men Type: BLOOD SPECIMEN Ordering Facility: [facility] Address: [address] [place] [address] Performed By: #### 5 7021-8 #### [facility] CLIA [id number] [address] [place] [address] [place] HbA1c (Bld)on 06-01-2023 Average glucose Estimated from glycated hemoglobin (Bld) [Mass/Vol] 97 mg/dL Normal [facility] Comment on above: Order Comment: Sundeep men Type: BLOOD SPECIMEN Ordering Facility: [facility] Address: [address] [place] [address] Result Comment: eAG: (Estimated average glucose) is a calculated value from HgbA1c and is manufacturing sales representative of the average blood glucose level in the last 2-3 month period. Performed By: #### 5 5454-3 #### [facility] CLIA [id number] [address] [place] [address] [place] HbA1c (Bld) [Mass fraction] 5.0 % Normal 4.3-5.6 [facility] Comment on above: Order Comment: Sundeep sadler Type: BLOOD SPECIMEN Ordering Facility: [facility] Address: [address] [place] [address] Result Comment: Maria E [place] Diabetes Association guidelines indicate that patients with HgbA1c in the range 5.7-6.4% are at increased risk for development of diabetes, and intervention by lifestyle modification may be beneficial. HgbA1c greater or equal to 6.5% is considered diagnostic of diabetes. Performed By: #### 5 5454-3 #### [facility] CLIA [id number] [address] [place] [address] [place] Prolactin SerPl-mCncon 06-01 Prolactin [Mass/Vol] 13.1 ng/mL Normal 4.5-26.8 [facility] Comment on above: Order Comment: Specradha sadler Type: BLOOD SPECIMEN Ordering Facility: [facility] Address: [address] [place] [address] Result Comment: Prol actin test is performed using the [employer] Electrochemiluminescence Immunoassay method. Results obtained with different methods or kits cannot be used interchangeably. Performed By: #### 2 842-3, 3016-3 #### [facility] CLIA [id number] [address] [place] [address] [place] TSH SerPl-aCncon 06-01-2023 TSH Qn 0.727 m[IU]/L Normal 0.270-4.200 [facility] Comment on above: Order Comment: Speci viktoriya Type: BLOOD SPECIMEN Ordering Facility: [facility] Address: [address] [place] [address] Result Comment: If t he patient is , TSH reference range varies by gestational period: First Trimester (weeks 9-12): 0.180-2.990 mIU/L Second Trimester: 0.110-3.980 mIU/L Third Trimester: 0.480-4.710 mIU/L Siddharth Rowan et al. A Practical Approach for the Verifications and Determination of Site- and Trimester-Specific Reference Intervals for Thyroid Function tests in . Thyroid, 2019:29:3:412-420. Josep E, et al. 2017 Guidelines of the [place] Thyroid Association for the Diagnosis and Management of Thyroid Disease during and the . Thyroid, 2017:27:3:315-389. Performed By: #### 2 842-3, 3016-3 #### [facility] CLIA [id number] [address] [place] [address] [place] CNOVon 05-30-2023 CNOV Office Visit (FAMPWS ) -- KIARA DEL REAL ([id number]) 1995 F [place] Date Time Provider Department 05/30/23 6:00 PM [facility] During your visit today, we recorded the following information about you: Temperature Pulse Respiration Blood pressure 98.2 degrees 93/minute 16/minute 110/66 Weight Last Period 72 kg 05/29/23 Krissy Santos MD 05/30/2023 7:08 PM Signed Chief Complaint Patient presents with: Eye Problem: Vision changes Menstrual Problem: Irregular periods- Heavy bleeding Monday and Monday- no bleeding today Hormone Problem: Feels like maybe abnormal Fatigue HPI Kiara Del Real is a 27 year old female who presents here today for Above Complaints. 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 Patient states that in the last 2-3 months she has been having irregular periods with heavy bleeding. Gets nausea with her periods and feels grumpy. Had appointment with [facility] about 3 weeks ago who ordered an transvaginal US of her uterus and ovaries which was normal. Did not order labs for her, but did swab for STI's which was reportedly negative. Denies SOB or lightheadedness. Did not discuss control at appointment with [facility]. Also noticed about 5-6 months ago a change in her vision and has hard time reading from a distance. Has not seen optho for this. Denies loss of vision, black spots, headache. Past medical history, appointments, medications, allergies reviewed. Previous Medical History No past medical history on file. Previous Surgical History PAST SURGICAL HISTORY Procedure Laterality Date SECTION HX Family History FAMILY HISTORY Problem Relation Age of Onset other (prediabetes) Mother Depression Father Diabetes Father Diabetes Maternal Grandmother other (liver cancer) Maternal Grandfather Diabetes Paternal Grandmother Patient Allergies ALLERGIES No Known Allergies Current Medications No current outpatient medications on file prior to visit. No current facility-administered medications on file prior to visit. Social History Social History Tobacco Use Smoking status: Never Smokeless tobacco: Never Substance Use Topics Alcohol use: Yes Comment: socially Review of Symptoms REVIEW OF SYSTEMS See HPI EXAM: BP 110/66 Pulse 93 Temp 36.8 ?C (98.2 ?F) Resp 16 Wt 72 kg (158 lb 12.8 oz) LMP 05/29/2023 SpO2 98% BMI 28.13 kg/m? Visual Acuity: OS 20/40 OD 20/40 OU 20/40 General Appearance: Well appearing, alert, in no acute distress, well-hydrated, well nourished.. Skin: Skin color, texture, turgor normal, no suspicious rashes or lesions. Eyes: Anicteric sclera. Pupils are equally round and reactive to light. Extraocular movements are intact. , Fundi-grossly normal. Lungs: Lungs clear to auscultation. No wheezing, rhonchi, rales.. Heart: RRR without murmur, gallop, or rubs. No ectopy. Abdomen: Normal abdominal exam, Abdomen soft, non-tender. Bowel sounds normal. No masses, organomegaly. Health Maintenance List Hepatitis B Vaccine(1 of 3 - 3-dose series) Never done Hepatitis C Screening Never done HIV Screening Never done Pap Testing Never done Depression Assessment Never done Influenza Vaccine(1) due on 03/17/2023 Covid-19 Vaccine(3 - 2022- season) due on 03/17/2023 DTaP,Tdap,Td Vaccine(2 - Td or Tdap) due on 02/13/2029 HPV Vaccine Aged Out Data reviewed Component Latest Ref Rng AND Units 05/30/2023 GLUCOSE UA (POCT) Negative mg/dL Negative BILIRUBIN UA (POCT) Negative Negative KETONE UA (POCT) Negative mg/dL Negative SPECIFIC GRAVITY UA (POCT) 1.005 - 1.030 >=1.030 HEMOGLOBIN/BLOOD UA (POCT) Negative Small (A) PH UA (POCT) 4.5 - 8.0 6.0 PROTEIN UA (POCT) Negative mg/dL Negative UROBILINOGEN UA (POCT) Normal E.U./dL 0.2 NITRITE UA (POCT) Negative Negative LEUKOCYTES UA (POCT) Negative Negative COLOR UA (POCT) Yellow CLARITY UA (POCT) Clear , Urine neg - pos neg Quality Check yes/no Yes ASSESSMENT/PLAN: 1. Irregular periods - ICD9: 626.4, ICD10: N92.6 (primary diagnosis) Urine testing negative. Obtain labs as ordered. Discussed OCP treatment which she is not interested in at this time. Will f/u with [facility] ANA[facility] depending on results. - CBC + DIFF - TSH BLD - PROLACTIN BLD - HGB A1C 2. Nausea - ICD9: 787.02, ICD10: R11.0 Likely 2/2 hormones. See above. - HCG QUAL UR B/O - UA DIP, URINE (POC) - HGB A1C 3. Decreased visual acuity - ICD9: 369.9, ICD10: H54.7 Bilateral visual acuity decreased. F/u with optho as ordered. - CONSULT TO OPHTHALMOLOGY Krissy Santos MD Allergies As of Date: 05/30/2023 (No Known Allergies) Date Reviewed: 05/30/2023 Reviewed by: Joy Owen LPN - Fully Assessed Reason for Visit: Eye Problem [43] Cmt: Vision changes Menstrual Problem [67] Cmt: Irregular periods- Heavy (more content not included)... Normal [facility] HCG QUAL UR B/Oon 05-30-2023 status Negative neg - pos [facility] Quality Check Yes [facility] UA DIP, URINE (POC)on 2022 BILIRUBIN UA (POCT) Negative Negative [facility] CLARITY UA (POCT) Clear [facility] COLOR UA (POCT) Yellow [facility] GLUCOSE UA (POCT) Negative Negative mg/dL [facility] Hemoglobin Ql (U) Small Abnormal Negative [facility] KETONE UA (POCT) Negative Negative mg/dL [facility] LEUKOCYTES UA (POCT) Negative Negative [facility] NITRITE UA (POCT) Negative Negative [facility] PH UA (POCT) 6.0 4.5 - 8.0 [facility] Protein Ql (U) Negative Negative mg/dL [facility] SPECIFIC GRAVITY UA (POCT) >=1.030 1.005 - 1.030 [facility] UROBILINOGEN UA (POCT) 0.2 E.U./dL Normal E.U./dL [facility] CTPCRon 05-17-2022 C. trachomatis Interp Normal See CT Interp N [facility] ([place]) Comment on above: Result Comment: CTPC R assay was repeated on specimen. Unable to obtain a valid test result. This may be due to specimen integrity, improper collection technique or other unknown cause. Recommend repeat testing. See CT Interp I Performed By: #### C TPCR, NGPCR1 #### [address] [address] C.trachomatis PCR Invalid result Normal Negative [facility] ([place]) Comment on above: Result Comment: Mole cular (PCR) assay performed on the [employer] Zach 4800 system. Performed By: #### C TPCR, NGPCR1 #### [address] [address] Chlam Source Urine Normal [facility] ([place] Comment on above: Performed By: #### C TPCR, NGPCR1 #### [place] [address] [id number] 11-30-2021 GC PCR Source Urine Normal [facility] ([place] Comment on above: Performed By: #### C TPCR, NGPCR1 #### [address] [address] N. gonorrhoeae (PCR) Invalid result Normal Negative [facility] ([place] Comment on above: Result Comment: Mole cular (PCR) assay performed on the [employer] Zach 4800 System. Performed By: #### C TPCR, NGPCR1 #### [place] [id number] N. gonorrhoeae Interp Normal See NG Interp N [facility] ([place] Comment on above: Result Comment: NGPC R assay was repeated on specimen. Unable to obtain a valid test result. This may be due to specimen integrity, improper collection technique or other unknown cause. Recommend repeat testing. See NG Interp I Performed By: #### C TPCR, NGPCR1 #### [place] [id number] .Auto Diffon 11-26-2021 Basophil, Absolute 0.00 10 3/mcL Normal 0.00-0.19 [facility] ([place]) Comment on above: Performed By: #### G FR, CBC, ADIFF, ANEU, CMP #### [address] [address] Basophils/100 WBC (Bld) 0.3 % Normal 0.0-2.5 [facility] ([place]) Comment on above: Performed By: #### G FR, CBC, ADIFF, ANEU, CMP #### [address] [address] Eosinophil, Absolute 0.10 10 3/mcL Normal 0.00-0.40 [facility] ([place]) Comment on above: Performed By: #### G FR, CBC, ADIFF, ANEU, CMP #### [address] [address] Eosinophils/100 WBC (Bld) 0.7 % Normal 0.0-7.0 [facility] ([place]) Comment on above: Performed By: #### G FR, CBC, ADIFF, ANEU, CMP #### [address] [address] Lymphocyte, Absolute 1.50 10 3/mcL Normal 0.77-3.85 [facility] ([place]) Comment on above: Performed By: #### G FR, CBC, ADIFF, ANEU, CMP #### [address] [address] Lymphocytes/100 WBC (Bld) 18.3 % Normal 10.0-50.0 [facility] ([place]) Comment on above: Performed By: #### G FR, CBC, ADIFF, ANEU, CMP #### [address] [address] Monocyte, Absolute 0.50 10 3/mcL Normal 0.15-1.00 [facility] ([place]) Comment on above: Performed By: #### G FR, CBC, ADIFF, ANEU, CMP #### [address] [address] Monocytes/100 WBC (Bld) 6.2 % Normal 1.7-13.0 [facility] ([place]) Comment on above: Performed By: #### G FR, CBC, ADIFF, ANEU, CMP #### [address] [address] Neutrophils/100 WBC (Bld) 74.5 % Normal 37.0-80.0 [facility] ([place]) Comment on above: Performed By: #### G FR, CBC, ADIFF, ANEU, CMP #### [place] [id number] [place], [place] [address] .GFRon 11-26-2021 GFR 134 ml/min/1.73sqm Normal [facility] ([place]) Comment on above: Result Comment: GFR Population mean for , Non- Americans Ages 20-29 = 116 mL/min/1.73 sq.m. Ages 30-39 = 107 mL/min/1.73 sq.m. Ages 40-49 = 99 mL/min/1.73 sq.m. Ages 50-59 = 93 mL/min/1.73 sq.m. Ages 60-69 = 85 mL/min/1.73 sq.m. Ages 70+ = 75 mL/min/1.73 sq.m. Chronic Kidney Disease: Less than 60 mL/min/1.73 square meters End Stage Renal Disease: Less than 15 mL/min/1.73 square meters Performed By: #### C TPCR, NGPCR1 #### [address] [address] GFR Non- 110 ml/min/1.73sqm Normal [facility] ([place]) Comment on above: Result Comment: GFR Population mean for , Non- Americans Ages 20-29 = 116 mL/min/1.73 sq.m. Ages 30-39 = 107 mL/min/1.73 sq.m. Ages 40-49 = 99 mL/min/1.73 sq.m. Ages 50-59 = 93 mL/min/1.73 sq.m. Ages 60-69 = 85 mL/min/1.73 sq.m. Ages 70+ = 75 mL/min/1.73 sq.m. Chronic Kidney Disease: Less than 60 mL/min/1.73 square meters End Stage Renal Disease: Less than 15 mL/min/1.73 square meters Performed By: #### C TPCR, NGPCR1 #### [place] [address] .NEUABSon 11-26-2021 Neutrophil, Absolute 6.10 10 3/mcL Normal 2.85-6.16 [facility] ([place]) Comment on above: Performed By: #### G FR, CBC, ADIFF, ANEU, CMP #### [place] [address] .Urinalysis Microscopic (AO) on 11-26-2021 UA Amorphus Trace Normal [facility] ([place]) Comment on above: Performed By: #### P REGU, UA, UAMICAO #### [place] [address] UA Bacteria Trace Abnormal [facility] ([place]) Comment on above: Performed By: #### P REGU, UA, UAMICAO #### [place] [address] UA Mucous Trace Normal [facility] ([place] Comment on above: Performed By: #### P REGU, UA, UAMICAO #### [place] [address] UA RBC LOADED Abnormal None Seen [facility] ([place] Comment on above: Performed By: #### P REGU, UA, UAMICAO #### [place] [address] UA Squam Epithelial 0-5 Abnormal None Seen [facility] ([place] Comment on above: Performed By: #### P REGU, UA, UAMICAO #### [place] [address] UA WBC 0-5 Abnormal None Seen [facility] ([place] Comment on above: Performed By: #### P REGU, UA, UAMICAO #### [place] [address] CBCon 11-26-2021 Erythrocyte distribution width (RBC) [Ratio] 13.8 % Normal 11.5-14.5 [facility] ([place] Comment on above: Performed By: #### G FR, CBC, ADIFF, ANEU, CMP #### [address] [address] Hematocrit (Bld) [Volume fraction] 40.5 % Normal 37.0-47.0 [facility] ([place] Comment on above: Performed By: #### G FR, CBC, ADIFF, ANEU, CMP #### [place] [address] Hgb 13.8 G/dL Normal 12.0-16.0 [facility] ([place] Comment on above: Performed By: #### G FR, CBC, ADIFF, ANEU, CMP #### [place] [id number] MCH (RBC) [Entitic mass] 27.0 pg Normal 27.0-31.2 [facility] ([place] Comment on above: Performed By: #### G FR, CBC, ADIFF, ANEU, CMP #### [place] [address] MCHC 33.9 G/dL Normal 33.0-37.0 [facility] ([place] Comment on above: Performed By: #### G FR, CBC, ADIFF, ANEU, CMP #### [place] [id number] MCV (RBC) [Entitic vol] 79.7 fL Low 80.0-94.0 [facility] ([place] Comment on above: Performed By: #### G FR, CBC, ADIFF, ANEU, CMP #### [address] [address] Platelet 227 10 3/mcL Normal 130-400 [facility] ([place] Comment on above: Performed By: #### G FR, CBC, ADIFF, ANEU, CMP #### [place] [id number] Platelet mean volume (Bld) [Entitic vol] 8.8 fL Normal 7.4-10.4 [facility] ([place] Comment on above: Performed By: #### G FR, CBC, ADIFF, ANEU, CMP #### [address] [address] RBC 5.09 10 6/mcL Normal 4.20-5.40 [facility] ([place] Comment on above: Performed By: #### G FR, CBC, ADIFF, ANEU, CMP #### [address] [address] WBC 8.10 10 3/mcL Normal 4.60-10.80 [facility] ([place] Comment on above: Performed By: #### G FR, CBC, ADIFF, ANEU, CMP #### [address] [address] CMPon 11-26-2021 Albumin Level 4.2 G/dL Normal 3.5-5.0 [facility] ([place] Comment on above: Performed By: #### G FR, CBC, ADIFF, ANEU, CMP #### [place] [id number] Albumin/Globulin [Mass ratio] 1.2 {ratio} Normal 1.1-2.5 [facility] ([place] Comment on above: Performed By: #### G FR, CBC, ADIFF, ANEU, CMP #### [address] [address] ALP [Catalytic activity/Vol] 70 U/L Normal 40-135 [facility] ([place] Comment on above: Performed By: #### G FR, CBC, ADIFF, ANEU, CMP #### [address] [address] ALT [Catalytic activity/Vol] 25 U/L Normal 14-59 [facility] ([place] Comment on above: Performed By: #### G FR, CBC, ADIFF, ANEU, CMP #### [address] [address] AST [Catalytic activity/Vol] 14 U/L Normal 10-40 [facility] ([place] Comment on above: Performed By: #### G FR, CBC, ADIFF, ANEU, CMP #### [address] [address] Bili Total 0.4 mg/dL Normal 0.2-1.0 [facility] ([place]) Comment on above: Result Comment: Use of this assay is not recommended for patients undergoing treatment with eltrombopag due to the potential for falsely elevated results. Performed By: #### G FR, CBC, ADIFF, ANEU, CMP #### [place] [address] BUN/Creatinine Ratio 12 ratio Normal 7-27 [facility] ([place] Comment on above: Performed By: #### G FR, CBC, ADIFF, ANEU, CMP #### [place] [address] Calcium [Mass/Vol] 8.8 mg/dL Normal 8.4-10.2 [facility] ([place]) Comment on above: Performed By: #### G FR, CBC, ADIFF, ANEU, CMP #### [place] [address] Chloride [Moles/Vol] 102 mmol/L Normal 98-107 [facility] ([place] Comment on above: Performed By: #### G FR, CBC, ADIFF, ANEU, CMP #### [place] [address] CO2 [Moles/Vol] 23 mmol/L Normal 22-29 [facility] ([place] Comment on above: Performed By: #### G FR, CBC, ADIFF, ANEU, CMP #### [place] [address] Creatinine [Mass/Vol] 0.65 mg/dL Normal 0.55-1.02 [facility] ([place] Comment on above: Performed By: #### G FR, CBC, ADIFF, ANEU, CMP #### [place] [address] Electrolyte Balance 12.0 mEq/L Normal 4.0-15.0 [facility] ([place] Comment on above: Performed By: #### G FR, CBC, ADIFF, ANEU, CMP #### [place] [id number] Globulin 3.4 G/dL Normal [facility] ([place] Comment on above: Performed By: #### G FR, CBC, ADIFF, ANEU, CMP #### [address] [address] Glucose [Mass/Vol] 117 mg/dL High 70-105 [facility] ([place] Comment on above: Performed By: #### G FR, CBC, ADIFF, ANEU, CMP #### [address] [address] Potassium [Moles/Vol] 3.6 mmol/L Normal 3.5-5.1 [facility] ([place] Comment on above: Performed By: #### G FR, CBC, ADIFF, ANEU, CMP #### [address] [address] Sodium [Moles/Vol] 137 mmol/L Normal 136-145 [facility] System ([place]) Comment on above: Performed By: #### G FR, CBC, ADIFF, ANEU, CMP #### [address] [address] Total Protein 7.6 G/dL Normal 6.4-8.2 [facility] ([place]) Comment on above: Performed By: #### G FR, CBC, ADIFF, ANEU, CMP #### [address] [address] Urea nitrogen [Mass/Vol] 8 mg/dL Normal 7-18 [facility] ([place]) Comment on above: Performed By: #### G FR, CBC, ADIFF, ANEU, CMP #### [address] [address] LABORATORYOrdered By: Kelly Kruse on 11-26-2021 Albumin BCP dye [Mass/Vol] 4.2 G/dL Invalid Interpretation Code 3.5 - 5.0 G/dL AO ADM SS Albumin/Globulin [Mass ratio] 1.2 {ratio} Invalid Interpretation Code 1.1 - 2.5 ratio AO ADM SS ALP [Catalytic activity/Vol] 70 U/L Invalid Interpretation Code 40 - 135 U/L AO ADM SS ALT With P-5'-P [Catalytic activity/Vol] 25 U/L Invalid Interpretation Code 14 - 59 U/L AO ADM SS Appearance (U) Turbid *ABN* (11/26/21 7:29 AM) Invalid Interpretation Code Clear AO Auto Urine SS AST With P-5'-P [Catalytic activity/Vol] 14 U/L Invalid Interpretation Code 10 - 40 U/L AO ADM SS Bacteria LM.HPF (Urine sed) [#/Area] Trace /HPF Invalid Interpretation Code AO Auto Urine SS Basophil, Absolute 0.00 103/mcL Invalid Interpretation Code 0.00 - 0.19 10^3/mcL AO Auto Heme SS Basophils/100 WBC (Bld) 0.3 % Invalid Interpretation Code 0.0 - 2.5 % AO Auto Heme SS Bilirubin [Mass/Vol] 0.4 mg/dL Invalid Interpretation Code 0.2 - 1.0 mg/dL AO ADM SS Bilirubin Ql (U) Negative (11/26/21 7:29 AM) Invalid Interpretation Code Negative AO Auto Urine SS Calcium [Mass/Vol] 8.8 mg/dL Invalid Interpretation Code 8.4 - 10.2 mg/dL AO ADM SS Chloride [Moles/Vol] 102 mmol/L Invalid Interpretation Code 98 - 107 mmol/L AO ADM SS CO2 [Moles/Vol] 23 mmol/L Invalid Interpretation Code 22 - 29 mmol/L AO ADM SS Color (U) Red *ABN* (11/26/21 7:29 AM) Invalid Interpretation Code AO Auto Urine SS Creatinine [Mass/Vol] 0.65 mg/dL Invalid Interpretation Code 0.55 - 1.02 mg/dL AO ADM SS Crystals.amorphous LM.HPF (Urine sed) [#/Area] Trace /HPF Invalid Interpretation Code AO Auto Urine SS Electrolyte Balance 12.0 mEq/L Invalid Interpretation Code 4.0 - 15.0 mEq/L AO ADM SS Eosinophil, Absolute 0.10 103/mcL Invalid Interpretation Code 0.00 - 0.40 10^3/mcL AO Auto Heme SS Eosinophils/100 WBC (Bld) 0.7 % Invalid Interpretation Code 0.0 - 7.0 % AO Auto Heme SS Erythrocyte distribution width (RBC) [Ratio] 13.8 % Invalid Interpretation Code 11.5 - 14.5 % AO Auto Heme SS Globulin 3.4 G/dL Invalid Interpretation Code AO ADM SS Glucose [Mass/Vol] 117 mg/dL Invalid Interpretation Code 70 - 105 mg/dL AO ADM SS Glucose Test strip (U) [Mass/Vol] Negative Invalid Interpretation Code Negativemg/ dL AO Auto Urine SS HCG ( test) Ql Negative (11/26/21 7:29 AM) Invalid Interpretation Code AO Manual Urine SS Hematocrit (Bld) [Volume fraction] 40.5 % Invalid Interpretation Code 37.0 - 47.0 % AO Auto Heme SS Hemoglobin (Bld) [Mass/Vol] 13.8 G/dL Invalid Interpretation Code 12.0 - 16.0 G/dL AO Auto Heme SS Hemoglobin Auto test strip (U) [Mass/Vol] Large *ABN* (11/26/21 7:29 AM) Invalid Interpretation Code Negative AO Auto Urine SS Ketones Ql (U) Negative Invalid Interpretation Code Negativemg/ dL AO Auto Urine SS Lymphocyte, Absolute 1.50 103/mcL Invalid Interpretation Code 0.77 - 3.85 10^3/mcL AO Auto Heme SS Lymphocytes/100 WBC (Bld) 18.3 % Invalid Interpretation Code 10.0 - 50.0 % AO Auto Heme SS MCH (RBC) [Entitic mass] 27.0 pg Invalid Interpretation Code 27.0 - 31.2 pg AO Auto Heme SS MCHC (RBC) [Mass/Vol] 33.9 G/dL Invalid Interpretation Code 33.0 - 37.0 G/dL AO Auto Heme SS MCV (RBC) [Entitic vol] 79.7 fL Invalid Interpretation Code 80.0 - 94.0 fL AO Auto Heme SS Monocyte, Absolute 0.50 103/mcL Invalid Interpretation Code 0.15 - 1.00 10^3/mcL AO Auto Heme SS Monocytes/100 WBC (Bld) 6.2 % Invalid Interpretation Code 1.7 - 13.0 % AO Auto Heme SS Neutrophil, Absolute 6.10 103/mcL Invalid Interpretation Code 2.85 - 6.16 10^3/mcL AO Auto Heme SS Neutrophils/100 WBC (Bld) 74.5 % Invalid Interpretation Code 37.0 - 80.0 % AO Auto Heme SS Platelet mean volume (Bld) [Entitic vol] 8.8 fL Invalid Interpretation Code 7.4 - 10.4 fL AO Auto Heme SS Platelets (Bld) [#/Vol] 227 103/mcL Invalid Interpretation Code 130 - 400 10^3/mcL AO Auto Heme SS Potassium [Moles/Vol] 3.6 mmol/L Invalid Interpretation Code 3.5 - 5.1 mmol/L AO ADM SS test (u) int Not detected Invalid Interpretation Code AO Manual Urine SS Protein [Mass/Vol] 7.6 G/dL Invalid Interpretation Code 6.4 - 8.2 G/dL AO ADM SS RBC (Bld) [#/Vol] 5.09 106/mcL Invalid Interpretation Code 4.20 - 5.40 10^6/mcL AO Auto Heme SS Sodium [Moles/Vol] 137 mmol/L Invalid Interpretation Code 136 - 145 mmol/L AO ADM SS UA Leuk Est Negative (11/26/21 7:29 AM) Invalid Interpretation Code Negative AO Auto Urine SS UA Mucous Trace /HPF Invalid Interpretation Code AO Auto Urine SS UA Nitrite Negative (11/26/21 7:29 AM) Invalid Interpretation Code Negative AO Auto Urine SS UA pH 5.5 (11/26/21 7:29 AM) Invalid Interpretation Code 5.0 - 8.0 AO Auto Urine SS UA Protein 100 mg/dL Invalid Interpretation Code Negativemg/ dL AO Auto Urine SS UA RBC LOADED /HPF Invalid Interpretation Code None Seen/HPF AO Auto Urine SS UA Spec Grav >=1.030 *ABN* (11/26/21 7:29 AM) Invalid Interpretation Code 1.015-1.025 AO Auto Urine SS UA Specimen Type Clean Catch (11/26/21 7:29 AM) Invalid Interpretation Code AO Auto Urine SS UA Squam Epithelial 0-5 /HPF Invalid Interpretation Code None Seen/HPF AO Auto Urine SS UA Urobilinogen 0.2 E.U./dL Invalid Interpretation Code 0.2-1.0E.U. /dL AO Auto Urine SS Urea nitrogen [Mass/Vol] 8 mg/dL Invalid Interpretation Code 7 - 18 mg/dL AO ADM SS Urea nitrogen/Creatinine [Mass ratio] 12 ratio Invalid Interpretation Code 7 - 27 ratio AO ADM SS WBC (Bld) [#/Vol] 8.10 103/mcL Invalid Interpretation Code 4.60 - 10.80 10^3/mcL AO Auto Heme SS WBC LM.HPF (Urine sed) [#/Area] 0-5 /HPF Invalid Interpretation Code None Seen/HPF AO Auto Urine SS LABORATORYOrdered By: SYSTEM SYSTEM on 11-26-2021 GFR 134 ml/min/1.73sqm Invalid Interpretation Code AO Chemistry S GFR Non- 110 ml/min/1.73sqm Invalid Interpretation Code AO Chemistry S PREGUon 11-26-2021 HCG ( test) Ql (U) Negative Normal [facility] ([place]) Comment on above: Performed By: #### P REGU, UA, UAMICAO #### [address] [address] test (u) int Not detected Invalid Interpretation Code [facility] ([place]) Comment on above: Performed By: #### P REGU, UA, UAMICAO #### [address] [address] UAon 11-26-2021 Color (U) Red Abnormal [facility] ([place]) Comment on above: Performed By: #### P REGU, UA, UAMICAO #### [address] [address] Glucose (U) [Mass/Vol] Negative Normal Negative [facility] ([place]) Comment on above: Performed By: #### P REGU, UA, UAMICAO #### [address] [address] Ketones Ql (U) Negative Normal Negative [facility] ([place]) Comment on above: Performed By: #### P REGU, UA, UAMICAO #### [address] [address] UA Appear Turbid Abnormal Clear [facility] ([place]) Comment on above: Performed By: #### P REGU, UA, UAMICAO #### [address] [address] UA Blood Large Abnormal Negative [facility] ([place]) Comment on above: Performed By: #### P REGU, UA, UAMICAO #### [address] [address] UA Leuk Est Negative Normal Negative [facility] ([place]) Comment on above: Performed By: #### P REGU, UA, UAMICAO #### [address] [address] UA Nitrite Negative Normal Negative [facility] ([place]) Comment on above: Performed By: #### P REGU, UA, UAMICAO #### [address] [address] UA pH 5.5 Normal 5.0 - 8.0 [facility] ([place]) Comment on above: Performed By: #### P REGU, UA, UAMICAO #### [address] [address] UA Protein 100 mg/dL Abnormal Negative [facility] ([place]) Comment on above: Performed By: #### P REGU, UA, UAMICAO #### [address] [address] UA Spec Grav >=1.030 Abnormal 1.015-1.025 [facility] ([place]) Comment on above: Performed By: #### P REGU, UA, UAMICAO #### [address] [address] UA Specimen Type Clean Catch Normal [facility] ([place]) Comment on above: Performed By: #### P REGU, UA, UAMICAO #### [address] [address] UA Urobilinogen 0.2 E.U./dL Normal 0.2-1.0 [facility] ([place]) Comment on above: Performed By: #### P REGU, UA, UAMICAO #### [address] [address] Urobilinogen (U) [Mass/Vol] Negative Normal Negative [facility]) Comment on above: Performed By: #### P REGU, UA, UAMICAO #### [address] [address] US PELVIS NON-OB W/TRANSVAGI NALon 11-26-2021 US PELVIS NON-OB W/TRANSVAGINAL ORIGINAL EXAMINATION: Transvaginal and transabdominal pelvic ultrasound was performed with duplex ovarian Doppler.11/26/2021 8:32 am TECHNIQUE: TRANSVAGINAL AND TRANSABDOMINAL PELVIC ULTRASOUND with color Doppler and spectral analysis of the ovaries. COMPARISON: None HISTORY: ORDERING SYSTEM PROVIDED HISTORY: Reason for Exam: pelvic pain, negative test, history of vaginal bleeding and cramping FINDINGS: The retroflexed uterus is 6.1 x 4.8 x 4.6 cm and has normal echotexture. No myometrial mass is seen. The endometrial double wall thickness is 13.9 mm. Heterogeneous fluid without internal vascularity is seen within the endometrium likely blood clots. The ovaries are normal in echogenicity. The RIGHT and LEFT ovaries measure 4.9 x 2.1 x 2.5 cm and 3.0 x 2.9 x 2.2 cm respectively. There is positive doppler flow to both ovaries. Arterial inflow and venous outflow is demonstrated bilaterally. There is an echogenic foci within the left ovary measuring 1.1 x 0.6 x 0.5 cm. This may be a small collapsing hemorrhagic cyst or other benign lesion that requires no follow-up imaging in a patient of this age. There is some free fluid within the cul-de-sac. There is a tiny nabothian cyst. IMPRESSION: 1. No evidence for ovarian torsion. 2. Retroverted uterus with heterogeneous complex fluid within the endometrium likely blood clots compatible with history of vaginal bleeding. 3. Echogenic 1.1 cm left ovarian foci is favored to be a benign lesion. No follow-up is indicated. I have personally reviewed the images of this examination and agree with the resident's findings and interpretations. Interpreted by: Ben Robles MD Preliminary Report By: Maxi Fajardo Electronically signed By Ben Robles MD Dictated Date: 11/26/2021 8:40:46 AM Prelim Date: 11/26/2021 9:02:35 AM Sign Date: 11/26/2021 9:02:35 AM Ordering Provider: CHERIE ZAPTAA [facility]ly [facility] ([place]) Progress Noteon 05-18-2020 Mechanical Maintenance Authentication Interface Message Text Met with patient. Use of Strata interpretor KYLAH for additional support. Pt spoke and understood all of my questions Here for mono/di twins with TTTS surveillance Medical, surgical and family hx reviewed Prior c/s in [place] for malpresentation Denies any medical problems Had CFDNA which confirmed mono/di zygocity Psycho/Social risk: Support System: Financial Stressors: denies Family Dynamics: lives with and child Behavioral Health Issues: denies Work History: Works at [employer] Information on [facility] services given. Consent to share information with FTC team, OB and sap bpc developer signed. Pt plans to deliver at [place] with Dr Gomez unless concern for TTTS and need for tertiary center. Inserting Operator is not yet decided. male fetuses- names are not yet decided Method of feeding: breast Ultrasound findings today: See report in procedures for details. Reinforced continued OB care with Dr Gomez [facility] Mechanical Maintenance Authentication Interface Message Text Consultation has been requested by: Angy Gomez MD EDC: Estimated Date of Delivery: 09/01/20 Gestational Age: 24w6d Reason for Consult: Diamniotic / Monochorionic twin gestation, 17% discordance, elevated UA Dopplers. History: (Detailed history is noted in the genetic counselor's note) Imaging: Twin A: Anatomy 05/12/2020. echo performed 05/18/2020 was within normal limits. UA Doppler increased, MCA Doppler within normal limits. Bladder, stomach, normal fluid pocket noted. Twin B: Anatomy 05/12/2020. echo performed 05/18/2020 was within normal limits. UA Doppler normal, MCA Doppler within normal limits. Bladder, stomach noted. Increased Maximum vertical pocket 8.3cm. Please refer to the ultrasound report for full details. Genetic Counseling Summary I discussed with the patient the following issues: 1. Noninvasive versus invasive methods for detection of aneuploidy 2. Follow up ultrasound examinations as scheduled 3. Findings of the ultrasound as noted above. She expressed understanding of the above information. Follow Up Recommendations: [facility] Plan of Care Diagnosis: Monochorionic, diamniotic twin gestation. Cell free DNA aneuploidy screening is low risk; Declined invasive testing. Plan: 1. Continued obstetrical care with her primary receiver is recommended. 2. TTTS evaluation with amniotic fluid assessment starting at 16 weeks and continuing q2 weeks as well as follow up q4 weeks to evaluate biometric parameters. With abnormalities in Dopplers and increased MVP Twin B, we increased testing to weekly on 05/18/2020. These are planned with the Treatment Center ([place]). 3. Anatomy scan is recommended at 18-20 weeks gestation. Completed 05/12/2020. 4. echocardiogram is recommended at 22 weeks gestation. Completed 05/18/2020 5. surveillance as follows: once weekly BPP beginning at 32 weeks (or sooner if indicated). These are planned with the Treatment [facility] in [place]. 6. Delivery location will be determined by gestational age at time of delivery (< 34 weeks will require [facility] delivery per primary OB provider). 7. Delivery is recommended at 37 weeks (or sooner if indicated). 8. Mode of delivery is based on the usual obstetrical indications. 9. Pediatric provider to examine infants and determine if additional evaluations are recommended prior to discharge. 10 follow up as clinically indicated. The total patient time of the visit was 30 minutes, of which greater than 50% of the time was spent counseling and coordinating care. Discussion topics are listed above. Arianna Lama MD [facility] Physician, Maternal- Medicine [facility] pararescue craftsman Kylah #[id number] used for the patient interaction. Normal [facility] Vital Signs Date Time Vital Sign Value Performing Clinician Faci lity 05-07-2024 13:41-0400 Body mass index (BMI) [Ratio] 26.4 kg/m2 Pina Podlogar BRIDAL GOWN FITTER.LOG BUYER Work Phone: [facility] 05-07-2024 13:41-0400 Body weight 67.6 kg Pina Podlogar BRIDAL GOWN FITTER.LOG BUYER Work Phone: [facility] 05-07-2024 13:41-0400 Heart rate 100 /min Pina Podlogar BRIDAL GOWN FITTER.LOG BUYER Work Phone: [facility] 05-07-2024 13:41-0400 Respiratory rate 16 /min Pina Podlogar BRIDAL GOWN FITTER.LOG BUYER Work Phone: [facility] 05-07-2024 13:41-0400 SaO2% (BldA) [Mass fraction] 96 % Pina Podlogar BRIDAL GOWN FITTER.LOG BUYER Work Phone: [facility] 04-28-2024 22:04-0400 Body temperature 97.52 [degF] BRYAN GORDON MD [facility] 04-28-2024 22:04-0400 Diastolic Blood Pressure Non-Invasive 68 mm[Hg] BRYAN GORDON MD [facility] 04-28-2024 22:04-0400 Heart rate 100 /min BRYAN GORDON MD [facility] 04-28-2024 22:04-0400 Respiratory rate 18 /min BRYAN GORDON MD [facility] 04-28-2024 22:04-0400 Systolic Blood Pressure Non-Invasive 123 mm[Hg] BRYAN GORDON MD [facility] 05-30-2023 17:47-0500 Body temperature 98.2 [degF] Krissy Santos MD Work Phone: [facility] 05-30-2023 17:47-0500 Body weight 72.03 kg Krissy Santos MD Work Phone: [facility] 05-30-2023 17:47-0500 Diastolic blood pressure 66 mm[Hg] Krissy Santos MD Work Phone: [facility] 05-30-2023 17:47-0500 Heart rate 93 /min Krissy Santos MD Work Phone: [facility] 05-30-2023 17:47-0500 Respiratory rate 16 /min Krissy Santos MD Work Phone: [facility] 05-30-2023 17:47-0500 SaO2% (BldA) [Mass fraction] 98 % Krissy Santos MD Work Phone: [facility] 05-30-2023 17:47-0500 Systolic blood pressure 110 mm[Hg] Krissy Santos MD Work Phone: [facility] 11-26-2021 06:55-0400 Body temperature 98.24 [degF] CHERIE ZAPATA MD [facility] 11-26-2021 06:55-0400 Diastolic blood pressure 85 mm[Hg] CHERIE ZAPATA MD [facility] 11-26-2021 06:55-0400 Heart rate 95 /min CHERIE ZAPATA MD [facility] 11-26-2021 06:55-0400 Respiratory rate 18 /min CHERIE ZAPATA MD [facility] 11-26-2021 06:55-0400 Systolic blood pressure 127 mm[Hg] CHERIE ZAPATA MD [facility] 10-19-2021 13:36-0400 Body weight 68.04 kg David Green MD Work Phone: [facility] 10-19-2021 13:36-0400 Diastolic blood pressure 65 mm[Hg] David Green MD Work Phone: [facility] 10-19-2021 13:36-0400 Heart rate 94 /min David Green MD Work Phone: [facility] 10-19-2021 13:36-0400 SaO2% (BldA) [Mass fraction] 100 % David Green MD Work Phone: [facility] 10-19-2021 13:36-0400 Systolic blood pressure 125 mm[Hg] David Green MD Work Phone: [facility] 10-07-2021 11:36-0400 Body temperature 98.42 [degF] MILVIA KULKARNI MD [facility] 10-07-2021 11:36-0400 Body weight 70 kg MILVIA KULKARNI MD [facility] 10-07-2021 11:36-0400 Diastolic blood pressure 55 mm[Hg] MILVIA KULKARNI MD [facility] 10-07-2021 11:36-0400 Heart rate 72 /min MILVIA KULKARNI MD [facility] 10-07-2021 11:36-0400 Respiratory rate 16 /min MILVIA KULKARNI MD [facility] 10-07-2021 11:36-0400 Systolic blood pressure 97 mm[Hg] MILVIA KULKARNI MD [facility] Encounters Encounter Date Encounter Type Care Provider Facility Start: 05-10-2024 End: 05-10-2024 Telephone encounter Krissy Santos MD Work Phone: Family [facility] [place] Comment on above: Results Start: 05-10-2024 End: 05-10-2024 Subsequent hospital visit by physician Lis [facility] [place] Work Phone: Radiology Comment on above: Palpitations [R00.2] Start: 05-08-2024 End: 05-08-2024 Telephone encounter Pina Coronado APRN.CNP Work Phone: Family Medicine [place] Comment on above: Results Start: 05-07-2024 End: 05-07-2024 ambulatory KRISSY SANTOS Facility:[facility] Start: 05-07-2024 End: 05-07-2024 Patient encounter procedure Pina Coronado APRN.CNP Work Phone: Family Medicine [place] Comment on above: Palpitations (Primar y Dx); Elevated glucose; Numbness and tingling in left arm Start: 05-07-2024 ambulatory PINA PODLOGTANJA Facility :[facility] Start: 04-28-2024 End: 04-28-2024 Emergency department patient visit BRYAN GORDON MD [facility] Start: 06-01-2023 End: 06-01-2023 ambulatory KRISSY SANTOS Facility:[facility] Start: 06-01-2023 End: 06-01-2023 ambulatory JOHN Sandro SANTOS Facility:[facility] Start: 06-01-2023 End: 06-01-2023 Patient encounter procedure Rosa Cardona OD Work Phone: Ophthalmology Comment on above: Blurred vision, bila teral (Primary Dx); Myopia, bilateral; Dry eye syndrome of bilateral lacrimal glands; Decreased visual acuity Start: 05-30-2023 End: 05-30-2023 ambulatory KRISSY SANTOS Facility:[facility] Start: 05-30-2023 End: 05-30-2023 Patient encounter procedure Krissy Santos MD Work Phone: [facility] Comment on above: Irregular periods (P rimary Dx); Nausea; Decreased visual acuity Start: 12-15-2021 End: 12-16-2021 Patient encounter procedure David Green MD Work Phone: Allergy Comment on above: Other allergy status , other than to drugs and biological substances (Primary Dx) Start: 12-15-2021 End: 12-15-2021 Patient encounter procedure Testing [facility] Work Phone: Allergy Comment on above: Other allergy status , other than to drugs and biological substances (Primary Dx) Start: 11-26-2021 End: 11-26-2021 Emergency department patient visit CHERIE ZAPATA Facility:[facility] Start: 11-26-2021 End: 11-26-2021 Emergency department patient visit CHERIE ZAPATA MD [facility] Start: 10-19-2021 End: 10-19-2021 Patient encounter procedure David Green MD Work Phone: Allergy/Immunology Comment on above: Drug intolerance; Food intolerance in adult Start: 10-07-2021 End: 10-07-2021 Emergency department patient visit MILVIA KULKARNI MD Facility:[facility] Start: 10-07-2021 End: 10-07-2021 Emergency department patient visit MILVIA KULKARNI MD [facility] Procedures Date Procedure Procedure Detail Performing Clinician Start: 05-10-2024 Radiologic exam ches t 2 views Krissy Santos MD Work Phone: Start: 05-30-2023 End: 05-30-2023 Urnls dip stick/tablet rgnt auto w/o microscopy Krissy Santos MD Work Phone: Start: 09-08-2021 Adult depression screening assessment David Green MD Work Phone: Plan of Treatment Date Care Activity Detail Author Start: 02-13-2029 Urine microalbumin profile [facility] Start: 06-03-2024 End: 06-03-2024 Patient encounter procedure 06/03/2024 1:00 PM EST Office Visit [facility] [address] [place], [place] [id number] Rosa Cardona, OD [address] [place] [address] complete eye exam Ophthalmology Comment on above: complete eye exam Start: 05-07-2024 End: 08-06-2024 CBC W Auto Differential panel - Blood [facility] Comment on above: Expected: 05/07/2024 , Expires: 08/06/2024 Start: 05-07-2024 End: 08-06-2024 Comprehensive metabolic 2000 panel - Serum or Plasma [facility] Comment on above: Expected: 05/07/2024 , Expires: 08/06/2024 Start: 05-07-2024 End: 08-06-2024 Hemoglobin A1c in Blood [facility] Comment on above: Expected: 05/07/2024 , Expires: 08/06/2024 Start: 05-07-2024 End: 08-06-2024 Magnesium [Mass/volume] in Serum or Plasma [facility] Comment on above: Expected: 05/07/2024 , Expires: 08/06/2024 Start: 05-07-2024 End: 08-06-2024 Thyrotropin [Units/volume] in Serum or Plasma [facility] Comment on above: Expected: 05/07/2024 , Expires: 08/06/2024 Start: 03-17-2024 Covid-19 Vaccine () Covid-19 Vaccine () [facility] Start: 03-17-2024 Influenza vaccination Influenza Vacc ine (#1) [facility] Start: 05-30-2023 End: 08-29-2023 CBC W Auto Differential panel - Blood CBC + DIFF Lab Routine Irregular periods Expected: 05/30/2023, Expires: 08/29/2023 [facility] Work Phone: Comment on above: Expected: 05/30/2023 , Expires: 08/29/2023 Start: 05-30-2023 End: 08-29-2023 Hemoglobin A1c in Blood HGB A1C Lab Routine Nausea Irregular periods Expected: 05/30/2023, Expires: 08/29/2023 [facility] Work Phone: Comment on above: Expected: 05/30/2023 , Expires: 08/29/2023 Start: 05-30-2023 End: 08-29-2023 Prolactin [Mass/volume] in Serum or Plasma PROLACTIN BLD Lab Routine Irregular periods Expected: 05/30/2023, Expires: 08/29/2023 [facility] Work Phone: Comment on above: Expected: 05/30/2023 , Expires: 08/29/2023 Start: 05-30-2023 End: 08-29-2023 Thyrotropin [Units/volume] in Serum or Plasma TSH BLD Lab Routine Irregular periods Expected: 05/30/2023, Expires: 08/29/2023 [facility] Work Phone: Comment on above: Expected: 05/30/2023 , Expires: 08/29/2023 Start: 03-17-2023 Covid-19 Vaccine ( season) Covid-19 Vaccine ( season) [facility] Start: 03-17-2023 Influenza vaccination Influenza Vacc ine (#1) [facility] Start: 09-08-2022 Adult depression screening assessment DEPRESSION SCREENING [facility] Start: 07-17-2022 Depression Assessment Depression Ass essment [facility] Start: 03-17-2022 Influenza vaccination INFLUENZ A (Season Ended) [facility] Start: 04-21-2021 COVID-19 VACCINE (3 - Booster for Moderna series) COVID-19 VACCINE (3 - Booster for Moderna series) [facility] Start: 2016 PAP TESTING PAP TESTING [facility] Start: 2016 Screening for malign ant neoplasm of cervix Cervical Cancer Screening [facility] Start: 2014 Hepatitis B Vaccine (1 of 3 - 19+ 3-dose series) Hepatitis B Vaccine (1 of 3 - 19+ 3-dose series) [facility] Start: 2013 Anxiety Screening Anxiety Screening [facility] Start: 2013 Depression Screening Depression Scre ening [facility] Start: 2013 HEPATITIS C SCREENING HEPATITIS C [facility] Start: 2013 Hepatitis C screening Hepatitis C [facility] Start: 2013 HIV SCREENING HIV SCREENING [facility] Start: 2013 HIV screening HIV Screening [facility] Start: 2009 PEDS TO ADULT TRANSITION ANNUAL ASSESSMENT PEDS TO ADULT TRANSITION ANNUAL ASSESSMENT [facility] Start: 2007 PEDS TO ADULT TRANSITION INITIAL DISCUSSION PEDS TO ADULT TRANSITION INITIAL DISCUSSION [facility] Start: 2006 HPV VACCINE (1 - 2-d ose series) HPV VACCINE (1 - 2-dose series) [facility] Start: 1995 Hepatitis B Vaccine (1 of 3 - 3-dose series) Hepatitis B Vaccine (1 of 3 - 3-dose series) [facility] Allg test perq & ic drug/biol immed react w/i&r ALLG TEST PERQ & IC DRUG/BIOL IMMED REACT W/ I&R Procedures Routine Other allergy status, other than to drugs and biological substances Ordered: 12/15/2021 [facility] Work Phone: Comment on above: Ordered: 12/15/2021 Allg test perq & ic drug/biol immed react w/i&r ALLG TEST PERQ & IC DRUG/BIOL IMMED REACT W/ I&R Procedures Routine Other allergy status, other than to drugs and biological substances Ordered: 12/16/2021 [facility] Work Phone: Comment on above: Ordered: 12/16/2021 ECG COMPLETE ECG COMPLETE ECG Routine Palpitations Ordered: 05/07/2024 [facility] Work Phone: Comment on above: Ordered: 05/07/2024 OUTSIDE VENDOR CARDI AC OUTPATIENT EXTENDED RHYTHM RECORDING (WITHOUT TELEMETRY) OUTSIDE VENDOR CARDIAC OUTPATIENT EXTENDED RHYTHM RECORDING (WITHOUT TELEMETRY) Holter Routine Palpitations Ordered: 05/07/2024 [facility] Comment on above: Ordered: 05/07/2024 End: 06-06-2025 XR Chest PA and Lateral XR CHEST 2V FRONTAL/LAT Radiology Routine Palpitations 1 Occurrences starting 05/07/2024 until 06/06/2025 [facility] Comment on above: 1 Occurrences starti ng 05/07/2024 until 06/06/2025 [facility] Immunizations Immunization Date Immunization Notes Care Provider Pasha rahman 04-20-2020 influenza virus vaccine, unspecified formulation Krissy Santos MD Work Phone: [facility] 03-01-2019 measles, mumps and rubella virus vaccine David Green MD Work Phone: [facility] Work Phone: 02-13-2019 tetanus toxoid, reduced diphtheria toxoid, and acellular pertussis vaccine, adsorbed David Green MD Work Phone: [facility] Payers Date Payer Category Payer Medicaid [id number] 2022 Unknown [id number] 2021 Unknown [id number] 2019 Medicaid [facility] MEDICAID [id number] 2019-Present [phone] [address] [place] [address] Medicaid [id number] 1995 Unknown [id number] 1995 Unknown [id number] 1995 Unknown [id number] Social History Date Type Detail Facility Never smoker [facility] Sex Assigned At Female [facility] Start: 02-13-2019 End: 05-30-2023 Tobacco smoking status NHIS Never smoked tobacco [facility] Work Phone: Start: 02-13-2019 End: 05-30-2023 Tobacco use and exposure Smokeless tobacco non-user [facility] Work Phone: Start: 10-19-2021 End: 05-07-2024 Alcohol intake Current drinker of alcohol (finding) [facility] Start: 02-13-2019 History SDOH Alcohol Comment socially [facility] Start: 1995 Sex Assigned At Not on file [facility] Start: 10-09-2021 End: 12-15-2021 Exposure to SARS-CoV-2 (event) Not sure [facility] Start: 09-08-2021 End: 05-30-2023 History of Social function [facility] Start: 09-08-2021 End: 05-30-2023 Tobacco use panel [facility] Adult Depression Screening Assessment 1 [facility] Functional Status Date Assessment Result Facility 04-28-2024 Functional Status Repositions self [facility] 11-26-2021 Functional Status [facility] Mental Status Date Assessment Result Facility 04-28-2024 Mental Status Oriented x 4 [facility] 11-26-2021 Mental Status [facility] Clinical Notes 10-07-2021 to 05-10-2024 Telephone Encounter - Silvia Sinclair LPN - 05/10/2024 4:06 PM EDTTelephone Encounter - Silvia Sinclair LPN - 05/10/2024 4:06 PM EDTTGloria hebert, RT(R) - 05/10/2024 12:20 PM EDT Note Date & Type Note Facility 05-10-2024 Telephone encounter Note Phoned patient left detailed message with results from Dr Santos on voicemail. [facility] 05-10-2024 Miscellaneous Notes Phoned patient left detailed message with results from Dr Santos on voicemail. ----- Message from Krissy Santos MD sent at 05/10/2024 1:19 PM EDT ----- Normal chest xray. documented in this encounter [facility] 05-10-2024 Telephone encounter Note ----- Message from Krissy Santos MD sent at 05/10/2024 1:19 PM EDT ----- Normal chest xray. [facility] 05-10-2024 History of Presen t illness Narrative Radiology Service Progress Note PATIENT NAME: Kiara Del Real DATE OF SERVICE: May 10, 2024 TIME: 12:14 PM PATIENT IDENTITY VERIFICATION COMPLETED USING TWO (2) IDENTIFIERS: Name and Date of confirmed by patient verbally. FALL SCREENING: Has the patient had 2 falls in the last year or 1 fall with injury or currently using an Ambulatory Assistive Device (Walker, Cane, Wheelchair, Crutches, etc.)? No PATIENT GENDER DATA: Female. status: : No status: NO. PATIENT RELEVANT IMPLANT DATA REVIEWED: Yes PATIENT PRESENTS WITH AN IMPLANTABLE OR ATTACHED CONTRACT COORDINATOR: Yes Other Zio heart monitor RADIOLOGY DEPARTMENT: General X-ray: Exam(s) Completed: Chest X-Ray PERIPHERAL IV DATA: Not applicable SIGNED BY: RT Rabia(Amaury) May 10, 2024 12:14 PM documented in this encounter [facility] 05-08-2024 Telephone encounter Note Phoned patient went over results, notes from Fortino Coronado ACTIVITIES OFFICER with understanding. [facility] 05-08-2024 Miscellaneous Notes Phoned patient went over results, notes from Fortino Stevenlogtanja ACTIVITIES OFFICER with understanding. ----- Message from Pina Coronado APRN.LOG BUYER sent at 05/08/2024 7:56 AM EDT ----- All blood work is in acceptable ranges. Pina Coronado APRN.LOG BUYER documented in this encounter [facility] 05-08-2024 Telephone encounter Note ----- Message from Pina Coronado APRN.CNP sent at 05/08/2024 7:56 AM EDT ----- All blood work is in acceptable ranges. Pina Coronado APRN.LOG BUYER [facility] 05-07-2024 Note HNO ID: [id number] Author: GLORIA DIAZ RT(R) Service: Radiology Author Type: Technologist Type: Progress Notes Filed: 05/07/2024 14:38 Note Text: [facility] 05-07-2024 Instructions Pina Coronado APRN.CNP - 05/07/2024 2:20 PM EDT Check with insurance to see if they cover Zio patch documented in this encounter [facility] 05-07-2024 Note HNO ID: [id number] Author: PINA CORONADO APRN.CNP Service: ? Author Type: Nurse Practitioner Type: Progress Notes Filed: 05/07/2024 14:50 Note Text: 05/07/2024 Patient presents with: ER F/U SUBJECTIVE: This is a 28 year old that is here today for Above Complaints.. For a couple of weeks has felt cold and tingling to left arm. Went to [facility] and they completed head CT and blood work. Told to follow-up with chiropractor. Has been seeing chiropractor which has started helping her symptoms. Apparently chiropractor told her to see PCP due to higher heart rate in office. Patient unable to tell me how high heart rate has been in his ofice. Admits to palpitations at times but not sure how often or how long they last. No accompanying visual changes, lightheadedness, dizziness, slurred speech, facial drooping, arm weakness, SOB, dyspnea,chest pain, saddle anaesthesia, urinary/bowel incontinence or inability Patient had labs from ER on phone for me to view otherwise not ER records available PAST MEDICAL HISTORY Diagnosis Date Irregular periods ALLERGIES Patient has no known allergies. MEDICATIONS No current outpatient medications on file. No current facility-administered medications for this visit. Medications and allergies reviewed by this provider. SOCIAL HISTORY Social History Tobacco Use Smoking status: Never Smokeless tobacco: Never Substance Use Topics Alcohol use: Yes Comment: socially REVIEW OF SYSTEMS All other reviewed and negative other than HPI. OBJECTIVE: Pulse 100 Resp 16 Wt 67.6 kg (149 lb 0.5 oz) LMP 05/29/2023 SpO2 96% BMI 26.40 kg/m? . Vital signs reviewed by this provider. APPEARANCE Well appearing, alert, in no acute distress, well-hydrated, well nourished. EYES conjunctiva and sclera normal. NECK Supple, no adenopathy; thyroid symmetric, normal size. FROM without pain or difficulty. Negative Spurling HEART RRR with normal S1 and S2, no murmurs, no gallops, no JVD appreciated LUNG clear to auscultation EXTREMITIES Extremities normal, No deformities, No skin discoloration, and No edema SKIN Skin color, texture, turgor normal, no suspicious rashes or lesions LEFT ARM and Shoulder: no obvious deformity, swelling, erythema or muscle wasting. FROM with pain or difficultly. Hand grasps equal and strong. Reflexes WNL. 2+ radial pulse with cap refill WNL. Negative Minor and NEMEÑO Depression Screening Never done Anxiety Screening Never done Hepatitis C Screening Never done HIV Screening Never done Hepatitis B Vaccine(1 of 3 - 19+ 3-dose series) Never done Cervical Cancer Screening Never done Influenza Vaccine(1) due on 03/17/2024 Covid-19 Vaccine(2023- season) due on 03/17/2024 DTaP,Tdap,Td Vaccine(2 - Td or Tdap) due on 02/13/2029 HPV Vaccine Aged Out ASSESSMENT/PLAN: 1. Palpitations - ICD9: 785.1, ICD10: R00.2 (primary diagnosis) - no red flag symptoms or exam findings - red flag symptoms discussed, verbalizes understanding - ECG COMPLETE - COMPREHENSIVE METABOLIC PANEL - COMPLETE BLOOD COUNT AND DIFFERENTIAL - MAGNESIUM - XR CHEST 2V FRONTAL/LAT - THYROID STIMULATING HORMONE - OUTSIDE VENDOR CARDIAC OUTPATIENT EXTENDED RHYTHM RECORDING (WITHOUT TELEMETRY)EKG Interpretation: RHYTHM: Normal sinus rhythm at 98 beats per minute AXIS: Normal axis INTERVALS: Normal FL interval QRS COMPLEX: Normal ST SEGMENT: Nonspecific ST-T changes QT INTERVAL: Normal - follow-up pending testing to ER with red flag symptoms 2. Elevated glucose - ICD9: 790.29, ICD10: R73.09 - blood sugar 113 on labs from hospital- likely due to non fasting status but patient concerned - HEMOGLOBIN A1C 3. Numbness and tingling in left arm - ICD9: 782.0, ICD10: R20.0, R20.2 - improving - continue with chiropractor - no red flag symptoms or exam findings - red flag symptoms discussed, verbalizes understanding - follow-up as needed Pina Coronado APRN.LOG BUYER Prescription instructions reviewed with patient as applicable. Patient advised if symptoms do not improve or if symptoms worsen sooner, to contact their primary care physician. Potential red flag symptoms discussed with the patient. Reviewed appropriate action plan to take if red flag symptoms occur. Patient agreeable to treatment plan. Medical Decision Making: Problems: Moderate: New problem with uncertain prognosis Data: Unique test(s) ordered: 3+ Risk: Moderate: Moderate risk from testing/treatment Medical Decision Making Level: 4 - Moderate [facility] 05-07-2024 History of Presen t illness Narrative 05/07/2024 Patient presents with: ER F/U SUBJECTIVE: This is a 28 year old that is here today for Above Complaints.. For a couple of weeks has felt cold and tingling to left arm. Went to [facility] ER and they completed head CT and blood work. Told to follow-up with chiropractor. Has been seeing chiropractor which has started helping her symptoms. Apparently chiropractor told her to see PCP due to higher heart rate in office. Patient unable to tell me how high heart rate has been in his ofice. Admits to palpitations at times but not sure how often or how long they last. No accompanying visual changes, lightheadedness, dizziness, slurred speech, facial drooping, arm weakness, SOB, dyspnea,chest pain, saddle anaesthesia, urinary/bowel incontinence or inability Patient had labs from ER on phone for me to view otherwise not ER records available PAST MEDICAL HISTORY Diagnosis Date Irregular periods ALLERGIES Patient has no known allergies. MEDICATIONS No current outpatient medications on file. No current facility-administered medications for this visit. Medications and allergies reviewed by this provider. SOCIAL HISTORY Social History Tobacco Use Smoking status: Never Smokeless tobacco: Never Substance Use Topics Alcohol use: Yes Comment: socially REVIEW OF SYSTEMS All other reviewed and negative other than HPI. OBJECTIVE: Pulse 100 Resp 16 Wt 67.6 kg (149 lb 0.5 oz) LMP 05/29/2023 SpO2 96% BMI 26.40 kg/m . Vital signs reviewed by this provider. APPEARANCE Well appearing, alert, in no acute distress, well-hydrated, well nourished. EYES conjunctiva and sclera normal. NECK Supple, no adenopathy; thyroid symmetric, normal size. FROM without pain or difficulty. Negative Spurling HEART RRR with normal S1 and S2, no murmurs, no gallops, no JVD appreciated LUNG clear to auscultation EXTREMITIES Extremities normal, No deformities, No skin discoloration, and No edema SKIN Skin color, texture, turgor normal, no suspicious rashes or lesions LEFT ARM and Shoulder: no obvious deformity, swelling, erythema or muscle wasting. FROM with pain or difficultly. Hand grasps equal and strong. Reflexes WNL. 2+ radial pulse with cap refill WNL. Negative Minor and NEMEÑO Depression Screening Never done Anxiety Screening Never done Hepatitis C Screening Never done HIV Screening Never done Hepatitis B Vaccine(1 of 3 - 19+ 3-dose series) Never done Cervical Cancer Screening Never done Influenza Vaccine(1) due on 03/17/2024 Covid-19 Vaccine(2023- season) due on 03/17/2024 DTaP,Tdap,Td Vaccine(2 - Td or Tdap) due on 02/13/2029 HPV Vaccine Aged Out ASSESSMENT/PLAN: 1. Palpitations - ICD9: 785.1, ICD10: R00.2 (primary diagnosis) - no red flag symptoms or exam findings - red flag symptoms discussed, verbalizes understanding - ECG COMPLETE - COMPREHENSIVE METABOLIC PANEL - COMPLETE BLOOD COUNT AND DIFFERENTIAL - MAGNESIUM - XR CHEST 2V FRONTAL/LAT - THYROID STIMULATING HORMONE - OUTSIDE VENDOR CARDIAC OUTPATIENT EXTENDED RHYTHM RECORDING (WITHOUT TELEMETRY)EKG Interpretation: RHYTHM: Normal sinus rhythm at 98 beats per minute AXIS: Normal axis INTERVALS: Normal FL interval QRS COMPLEX: Normal ST SEGMENT: Nonspecific ST-T changes QT INTERVAL: Normal - follow-up pending testing to ER with red flag symptoms 2. Elevated glucose - ICD9: 790.29, ICD10: R73.09 - blood sugar 113 on labs from hospital- likely due to non fasting status but patient concerned - HEMOGLOBIN A1C 3. Numbness and tingling in left arm - ICD9: 782.0, ICD10: R20.0, R20.2 - improving - continue with chiropractor - no red flag symptoms or exam findings - red flag symptoms discussed, verbalizes understanding - follow-up as needed Pina Coronado APRN.LOG BUYER Prescription instructions reviewed with patient as applicable. Patient advised if symptoms do not improve or if symptoms worsen sooner, to contact their primary care physician. Potential red flag symptoms discussed with the patient. Reviewed appropriate action plan to take if red flag symptoms occur. Patient agreeable to treatment plan. Medical Decision Making: Problems: Moderate: New problem with uncertain prognosis Data: Unique test(s) ordered: 3+ Risk: Moderate: Moderate risk from testing/treatment Medical Decision Making Level: 4 - Moderate documented in this encounter [facility] 04-29-2024 Hospital Discharg e instructions Patient Education 04/28/2024 22:15:12 Neuropathy, Peripheral Peripheral Neuropathy Peripheral neuropathy is the result of damage to the peripheral nerves. It usually affects the arms or legs, and causes a change in physical feeling. Sometimes it causes weakness in the muscles. You may feel tingling, numbness or shooting pains. Symptoms may be more common at night. Skin may be extra sensitive to light touch or temperature changes. Neuropathy may be caused by a complication of a chronic disease such as diabetes, virus or bacterial infections, or physical injury. A ruptured disk with pressure on the spinal nerve may also lead to the problem. Certain vitamin deficiencies may also lead to it. It may also be caused by exposure to certain drugs or chemicals. Home care Tell the healthcare provider about all medicines you take. This includes prescription and tfmy-tql-ulhzmwg medicines, vitamins, and herbs. Ask if any of the medicines may be causing your problems. Don't make any changes to prescription medicines without talking to your healthcare provider first. You may be prescribed medicines to help relieve the tingling feeling or for pain. Take all medicines as directed. A numb hand or foot may be more prone to injury. To help protect it: oAlways use oven mitts. oTest water with an unaffected hand or foot. oUse caution when trimming nails. File sharp areas. oWear shoes that fit well to avoid pressure points, blisters, and ulcers. oInspect your hands and feet carefully (including the soles of your feet and between your toes) at least once a week. If you see red areas, sores, or other problems, tell your healthcare provider. Follow-up care Follow up with your doctor or as advised by our staff. You may need further testing or evaluation. When to seek medical advice Call your healthcare provider right away if any of the following occur: Redness, swelling, cracking, or ulcer on any numb area, especially the feet New symptoms of numbness or muscle weakness numbness Loss of bowel or bladder control Slurred speech, confusion, or trouble speaking, walking, or seeing [phone] [employer]. [address] [place] [address]. All rights reserved. This information is not intended as a substitute for professional medical care. Always follow your healthcare professional's instructions. Follow Up Care 04/28/2024 22:00:39 With[phone] Address:Unknown When:2-4 days [facility] 04-28-2024 Note Discharge Instructions Thank you for allowing [facility] to assist you with your healthcare needs. The following is important discharge information regarding your hospital visit. What to Do Next Instructions from Your Care Team No qualifying data available. Post Acute Orders No qualifying data available. You Need to Schedule the Following Appointments Follow Up with Call JONATHAN James Pt. Refferral [phone] When:Within 2-4 days Allergies NKA Medications Please ask your primary doctor or pharmacist before taking any other medication not listed, including over the counter drugs, herbal medications, vitamins and or supplements as they may interact with your home medications. Please take this list to your next doctor s visit. Bring all medications you take, including over the counter medications, herbals and other supplements with you to your doctor s visit. Patients and families are reminded to discard old lists and to update any records with all medication providers or retail pharmacies. Education Materials Peripheral Neuropathy Peripheral neuropathy is the result of damage to the peripheral nerves. It usually affects the arms or legs, and causes a change in physical feeling. Sometimes it causes weakness in the muscles. You may feel tingling, numbness or shooting pains. Symptoms may be more common at night. Skin may be extra sensitive to light touch or temperature changes. Neuropathy may be caused by a complication of a chronic disease such as diabetes, virus or bacterial infections, or physical injury. A ruptured disk with pressure on the spinal nerve may also lead to the problem. Certain vitamin deficiencies may also lead to it. It may also be caused by exposure to certain drugs or chemicals. Home care Tell the healthcare provider about all medicines you take. This includes prescription and ktpp-xan-lcwbpbd medicines, vitamins, and herbs. Ask if any of the medicines may be causing your problems. Don't make any changes to prescription medicines without talking to your healthcare provider first. You may be prescribed medicines to help relieve the tingling feeling or for pain. Take all medicines as directed. A numb hand or foot may be more prone to injury. To help protect it: oAlways use oven mitts. oTest water with an unaffected hand or foot. oUse caution when trimming nails. File sharp areas. oWear shoes that fit well to avoid pressure points, blisters, and ulcers. oInspect your hands and feet carefully (including the soles of your feet and between your toes) at least once a week. If you see red areas, sores, or other problems, tell your healthcare provider. Follow-up care Follow up with your doctor or as advised by our staff. You may need further testing or evaluation. When to seek medical advice Call your healthcare provider right away if any of the following occur: Redness, swelling, cracking, or ulcer on any numb area, especially the feet New symptoms of numbness or muscle weakness numbness Loss of bowel or bladder control Slurred speech, confusion, or trouble speaking, walking, or seeing [phone] [employer]. [address] [place], [place] [id number]. All rights reserved. This information is not intended as a substitute for professional medical care. Always follow your healthcare professional's instructions. Additional Information VACCINATE! IT SAVES LIVES! Members of the community who have not yet received the COVID-19 vaccine and would like to receive it can visit one of [facility] vaccine clinics. There are many vaccine clinic locations within the [facility]. For locations and available times, please visit [email or web address] [email or web address] It is important to note that some COVID mobile vaccine clinics are held outdoors and may be canceled in rainy or stormy conditions. To learn more about pediatric vaccinations (ages 5-11), we invite you to visit the [facility] webpage. [email or web address]/p ages/0050-Kedzq-Kiducemxboj-Freq xmiqkg-Lhsmh-Zbanhnynn.html To learn more about the COVID-19 vaccine, we invite you to visit the CDC website for a list of frequently asked questions. https://www.cdc.gov/coronavirus/ 2019-ncov/vaccines/faq.html [facility] Patient Portal Access Instructions: Stay connected with your healthcare team and access your personal medical information anytime with the [facility] Patient Portal. If you would like a full copy of your medical records please contact the [facility] Medical Records Department Monday through Monday between 8a.m. and 4:30p.m. Please follow the directions below to access the portal: 1.Access the email account you provided upon registration to the [facility].2.Look for an invitation email from [facility].3.Open the email and access the invitation link: Accept Invitation to [facility].Fill in the required ornelas to create your account. Sign into [email or web address] with your username and password that you created in the above steps to stay up to date. You can then view a summary of results, a summary of your visits, and the ability to download your summaries to your computer or send the information securely to a physician. Remember that your healthcare information is confidential, so carefully consider who you will allow to register on the [facility] Patient Portal for access to your information. You can also access the [facility] Patient Portal on the [employer] evita. Simply click on Health Records under Health Data and then click on the [employer] logo. HOW TO SAFELY DISPOSE OF PRESCRIPTION MEDICATIONS Please use one of the following methods to safely dispose of your unused medications. 1.Use a drug disposal kit: the drug disposal pouch allows you to safely discard your old and unused drugs. Ask your nurse to give you one when you are discharged.2.Visit a local take-back location: Many local pharmacies and police departments have programs that collect old and unwanted prescription drugs. Call your local pharmacy or go to http://bit.Alerts/8G5Fm3o to find one close to you.3.Make use of household items: Use cat litter or old coffee grounds to dispose medications if other options are not available. Mix your drugs with these household products, seal them in an airtight container and throw it into the garbage. Call [facility]: [phone] to be sure your drugs can be disposed of in this way. Some medicines may require a different approach.4.Never flush your medications down the toilet. IF YOU HAVE BEEN PRESCRIBED AN OPIOIDS FOR PAIN If you have been prescribed an opioid (such as hydrocodone, oxycodone or morphine), it is critical to understand the possible side effects and risks of opioid pain medications. Even when taken as directed, opioids can have several side effects including: Tolerance, meaning you might need to take more of a medication for the same pain relief. Nausea, vomiting and/or constipation. Sleepiness, dizziness, dry mouth, confusion, depression or itching. Physical dependence, meaning you have withdrawal symptoms when a medication is stopped ? this can develop within a few days. KNOW YOUR RESPONSIBILITIES It is important to know exactly how much and how often to take the opioid pain medications you are prescribed. Never take opioids in higher amounts or more often than prescribed. Do not combine opioids with alcohol or other drugs that cause drowsiness, such as benzodiazepines, also known as benzos, including diazepam and alprazolam, muscle relaxants or sleep aids. Never sell or share prescription opioids. This is illegal. Store opioids in a secure place and out of reach of others (including children, family, friends and visitors). The last page(s) of this document has been signed and retained as a CHART COPY Signatures Patient Education Materials Neuropathy, Peripheral Medication Leaflets My discharge plan and instructions have been reviewed and explained to me and IVERONICA DANNETTE A understand my current condition and have read and understand these discharge instructions. I have received a written copy of the plan/instructions. If I have questions, I am aware that I should contact my doctor. 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 Multiplanar reformatted images are provided for review. Automated exposure control, iterative reconstruction, and/or weight based adjustment of the mA/kV was utilized to reduce the radiation dose to as low as reasonably achievable. COMPARISON: None. HISTORY: ORDERING SYSTEM PROVIDED HISTORY: Reason for Exam: numbness and tingling down left arm off and on for several weeks pain FINDINGS: BONES/ALIGNMENT: There is no acute fracture or traumatic malalignment. DEGENERATIVE CHANGES: No significant degenerative changes. SOFT TISSUES: There is no prevertebral soft tissue swelling. IMPRESSION: No acute abnormality of the cervical spine. Interpreted by: Manny Garrido MD Preliminary Report By: Manny Garrido MD Electronically signed By Manny Garrido MD Dictated Date: 04/28/2024 10:48:39 PM Prelim Date: 04/28/2024 10:55:34 PM Sign Date: 04/28/2024 10:55:34 PM Ordering Provider: BRYAN GORDON [facility] 04-28-2024 Note ORIGINAL EXAMINATION: CT OF THE HEAD WITHOUT UHENMSFE96/13/2024 10:[address] HEAD/BRAIN WITHOUT CONTRAST EXAM DESCRIPTION: TECHNIQUE: CT of the head was performed without the administration of intravenous contrast. Automated exposure control, iterative reconstruction, and/or weight based adjustment of the mA/kV was utilized to reduce the radiation dose to as low as reasonably achievable. COMPARISON: None available HISTORY: ORDERING SYSTEM PROVIDED HISTORY: Reason for Exam: pain FINDINGS: The size, density, and morphology of the brain and CSF containing spaces appears normal. There is no evidence of mass, midline shift, hemorrhage, or infract. The ventricles, cortical sulci, and subarachnoid cisterns appear unremarkable. There are no extra-axial fluid collections. No regions of pathologic attenuation are evident. Regions of the orbits and paranasal sinuses included within the field of view are unremarkable. There is no displaced fracture or osseous neoplasm. The extracalvarial soft tissues appear unremarkable. IMPRESSION: No acute intracranial pathology. COMMENT: Changes resultant from ischemia (even significant ischemia) may often be inapparent on CT exam, particularly if imaged early. Additionally, early changes due to neoplastic or inflammatory processes can be subtle to the extent that they are not prospectively noted. Therefore, if symptoms persist, or clinical suspicion for pathology remains, further evaluation may be obtained with MRI. Interpreted by: Manny Garrido MD Preliminary Report By: Manny Garrido MD Electronically signed By Manny Garrido MD Dictated Date: 04/28/2024 10:47:44 PM Prelim Date: 04/28/2024 10:48:29 PM Sign Date: 04/28/2024 10:48:29 PM Ordering Provider: [facility] 06-01-2023 History of Presen t illness Narrative 1. Blurred vision, bilateral] 2. Myopia, bilateral Finalized spec rx 3. Dry eye syndrome of bilateral lacrimal glands Use Systane Complete or Refresh Relieva 2-3 times daily Use Systane, Refresh or Blink gel nightly before bed in both eyes Follow-up in 1 year for complete eye exam Rosa Cardona OD June 01, 2023 10:14 AM documented in this encounter [facility] 06-01-2023 Note HNO ID: [id number] Author: Rosa Cardona OD Service: ? Author Type: BANQUET PILOT Type: Progress Notes Filed: 06/01/2023 10:15 AM Note Text: 1. Blurred vision, bilateral] 2. Myopia, bilateral Finalized spec rx 3. Dry eye syndrome of bilateral lacrimal glands Use Systane Complete or Refresh Relieva 2-3 times daily Use Systane, Refresh or Blink gel nightly before bed in both eyes Follow-up in 1 year for complete eye exam Rosa Cardona, CASI June 01, 2023 10:14 AM [facility] 06-01-2023 Instructions Rosa Cardona OD - 06/01/2023 10:01 AM EST Use Systane Complete or Refresh Relieva 2-3 times daily Use Systane, Refresh or Blink gel nightly before bed in both eyes documented in this encounter [facility] 05-30-2023 Note HNO ID: [id number] Author: Krissy Santos MD Service: ? Author Type: Physician Type: Progress Notes Filed: 05/30/2023 7:08 PM Note Text: Chief Complaint Patient presents with: Eye Problem: Vision changes Menstrual Problem: Irregular periods- Heavy bleeding Monday and Monday- no bleeding today Hormone Problem: Feels like maybe abnormal Fatigue HPI Kiara Del Real is a 27 year old female who presents here today for Above Complaints. 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 Patient states that in the last 2-3 months she has been having irregular periods with heavy bleeding. Gets nausea with her periods and feels grumpy. Had appointment with [facility] about 3 weeks ago who ordered an transvaginal US of her uterus and ovaries which was normal. Did not order labs for her, but did swab for STI's which was reportedly negative. Denies SOB or lightheadedness. Did not discuss control at appointment with [facility]. Also noticed about 5-6 months ago a change in her vision and has hard time reading from a distance. Has not seen optho for this. Denies loss of vision, black spots, headache. Past medical history, appointments, medications, allergies reviewed. Previous Medical History No past medical history on file. Previous Surgical History PAST SURGICAL HISTORY Procedure Laterality Date SECTION HX Family History FAMILY HISTORY Problem Relation Age of Onset other (prediabetes) Mother Depression Father Diabetes Father Diabetes Maternal Grandmother other (liver cancer) Maternal Grandfather Diabetes Paternal Grandmother Patient Allergies ALLERGIES No Known Allergies Current Medications No current outpatient medications on file prior to visit. No current facility-administered medications on file prior to visit. Social History Social History Tobacco Use Smoking status: Never Smokeless tobacco: Never Substance Use Topics Alcohol use: Yes Comment: socially Review of Symptoms REVIEW OF SYSTEMS See HPI EXAM: BP 110/66 Pulse 93 Temp 36.8 ?C (98.2 ?F) Resp 16 Wt 72 kg (158 lb 12.8 oz) LMP 05/29/2023 SpO2 98% BMI 28.13 kg/m? Visual Acuity: OS 20/40 OD 20/40 OU 20/40 General Appearance: Well appearing, alert, in no acute distress, well-hydrated, well nourished.. Skin: Skin color, texture, turgor normal, no suspicious rashes or lesions. Eyes: Anicteric sclera. Pupils are equally round and reactive to light. Extraocular movements are intact. , Fundi-grossly normal. Lungs: Lungs clear to auscultation. No wheezing, rhonchi, rales.. Heart: RRR without murmur, gallop, or rubs. No ectopy. Abdomen: Normal abdominal exam, Abdomen soft, non-tender. Bowel sounds normal. No masses, organomegaly. Health Maintenance List Hepatitis B Vaccine(1 of 3 - 3-dose series) Never done Hepatitis C Screening Never done HIV Screening Never done Pap Testing Never done Depression Assessment Never done Influenza Vaccine(1) due on 03/17/2023 Covid-19 Vaccine(3 - 2022- season) due on 03/17/2023 DTaP,Tdap,Td Vaccine(2 - Td or Tdap) due on 02/13/2029 HPV Vaccine Aged Out Data reviewed Component Latest Ref Rng AND Units 05/30/2023 GLUCOSE UA (POCT) Negative mg/dL Negative BILIRUBIN UA (POCT) Negative Negative KETONE UA (POCT) Negative mg/dL Negative SPECIFIC GRAVITY UA (POCT) 1.005 - 1.030 >=1.030 HEMOGLOBIN/BLOOD UA (POCT) Negative Small (A) PH UA (POCT) 4.5 - 8.0 6.0 PROTEIN UA (POCT) Negative mg/dL Negative UROBILINOGEN UA (POCT) Normal E.U./dL 0.2 NITRITE UA (POCT) Negative Negative LEUKOCYTES UA (POCT) Negative Negative COLOR UA (POCT) Yellow CLARITY UA (POCT) Clear , Urine neg - pos neg Quality Check yes/no Yes ASSESSMENT/PLAN: 1. Irregular periods - ICD9: 626.4, ICD10: N92.6 (primary diagnosis) Urine testing negative. Obtain labs as ordered. Discussed OCP treatment which she is not interested in at this time. Will f/u with [facility] depending on results. - CBC + DIFF - TSH BLD - PROLACTIN BLD - HGB A1C 2. Nausea - ICD9: 787.02, ICD10: R11.0 Likely 2/2 hormones. See above. - HCG QUAL UR B/O - UA DIP, URINE (POC) - HGB A1C 3. Decreased visual acuity - ICD9: 369.9, ICD10: H54.7 Bilateral visual acuity decreased. F/u with optho as ordered. - CONSULT TO OPHTHALMOLOGY Krissy Santos MD [facility] 05-30-2023 History of Presen t illness Narrative Chief Complaint Patient presents with: Eye Problem: Vision changes Menstrual Problem: Irregular periods- Heavy bleeding Monday and Monday- no bleeding today Hormone Problem: Feels like maybe abnormal Fatigue HPI Kiara Del Real is a 27 year old female who presents here today for Above Complaints. 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 Patient states that in the last 2-3 months she has been having irregular periods with heavy bleeding. Gets nausea with her periods and feels grumpy. Had appointment with [facility] about 3 weeks ago who ordered an transvaginal US of her uterus and ovaries which was normal. Did not order labs for her, but did swab for STI's which was reportedly negative. Denies SOB or lightheadedness. Did not discuss control at appointment with [facility]. Also noticed about 5-6 months ago a change in her vision and has hard time reading from a distance. Has not seen optho for this. Denies loss of vision, black spots, headache. Past medical history, appointments, medications, allergies reviewed. Previous Medical History No past medical history on file. Previous Surgical History PAST SURGICAL HISTORY Procedure Laterality Date SECTION HX Family History FAMILY HISTORY Problem Relation Age of Onset other (prediabetes) Mother Depression Father Diabetes Father Diabetes Maternal Grandmother other (liver cancer) Maternal Grandfather Diabetes Paternal Grandmother Patient Allergies ALLERGIES No Known Allergies Current Medications No current outpatient medications on file prior to visit. No current facility-administered medications on file prior to visit. Social History Social History Tobacco Use Smoking status: Never Smokeless tobacco: Never Substance Use Topics Alcohol use: Yes Comment: socially Review of Symptoms REVIEW OF SYSTEMS See HPI EXAM: BP 110/66 Pulse 93 Temp 36.8 C (98.2 F) Resp 16 Wt 72 kg (158 lb 12.8 oz) LMP 05/29/2023 SpO2 98% BMI 28.13 kg/m Visual Acuity: OS 20/40 OD 20/40 OU 20/40 General Appearance: Well appearing, alert, in no acute distress, well-hydrated, well nourished.. Skin: Skin color, texture, turgor normal, no suspicious rashes or lesions. Eyes: Anicteric sclera. Pupils are equally round and reactive to light. Extraocular movements are intact. , Fundi-grossly normal. Lungs: Lungs clear to auscultation. No wheezing, rhonchi, rales.. Heart: RRR without murmur, gallop, or rubs. No ectopy. Abdomen: Normal abdominal exam, Abdomen soft, non-tender. Bowel sounds normal. No masses, organomegaly. Health Maintenance List Hepatitis B Vaccine(1 of 3 - 3-dose series) Never done Hepatitis C Screening Never done HIV Screening Never done Pap Testing Never done Depression Assessment Never done Influenza Vaccine(1) due on 03/17/2023 Covid-19 Vaccine(3 - 2022- season) due on 03/17/2023 DTaP,Tdap,Td Vaccine(2 - Td or Tdap) due on 02/13/2029 HPV Vaccine Aged Out Data reviewed Component Latest Ref Rng & Units 05/30/2023 GLUCOSE UA (POCT) Negative mg/dL Negative BILIRUBIN UA (POCT) Negative Negative KETONE UA (POCT) Negative mg/dL Negative SPECIFIC GRAVITY UA (POCT) 1.005 - 1.030 >=1.030 HEMOGLOBIN/BLOOD UA (POCT) Negative Small (A) PH UA (POCT) 4.5 - 8.0 6.0 PROTEIN UA (POCT) Negative mg/dL Negative UROBILINOGEN UA (POCT) Normal E.U./dL 0.2 NITRITE UA (POCT) Negative Negative LEUKOCYTES UA (POCT) Negative Negative COLOR UA (POCT) Yellow CLARITY UA (POCT) Clear , Urine neg - pos neg Quality Check yes/no Yes ASSESSMENT/PLAN: 1. Irregular periods - ICD9: 626.4, ICD10: N92.6 (primary diagnosis) Urine testing negative. Obtain labs as ordered. Discussed OCP treatment which she is not interested in at this time. Will f/u with [facility] depending on results. - CBC + DIFF - TSH BLD - PROLACTIN BLD - HGB A1C 2. Nausea - ICD9: 787.02, ICD10: R11.0 Likely 2/2 hormones. See above. - HCG QUAL UR B/O - UA DIP, URINE (POC) - HGB A1C 3. Decreased visual acuity - ICD9: 369.9, ICD10: H54.7 Bilateral visual acuity decreased. F/u with optho as ordered. - CONSULT TO OPHTHALMOLOGY Krissy Santos MD documented in this encounter [facility] 12-17-2021 Instructions David Green MD - 12/17/2021 9:43 AM EDT No Evidence of IgE mediated potential to the LOCAL ANESTHETIC AGENTS -Testing included agents in BOTH classes of local anesthetic agents. -Based on your negative skin testing and prior history there is a LOW risk of IgE mediated potential to ANY of the local anesthetic agents. -These include but are not limited to the following agents for each class Group 1 Benzoin Acid Antonieta agent which includes Benzocaine, procaine, tetracaine AND Group 2 Amide agents which include bupivacaine, lidocaine, mepivacaine and articaine. -testing is performed with preservative free agents. PLAN: -No contraindication for upcoming dental procedures. David Green MD documented in this encounter [facility] 12-17-2021 History of Presen t illness Narrative Misc/PERCUTANEOUS & ID SKIN TESTING Wheal and Flare Diameter (mm) Patient has been identified by name and date of : Yes . Skin test applied by : Carley Castle RN Interpreted By: David Green M.D. * Clinical significant reactions are regarded as a wheal diameter greater than or equal to 3 mm with a flare diameter greater or equal to 6mm. Anesthetics received from [facility] and prepared by nurses. Time applied: 1455 Time read: 1510 ALLERGENS: EPICUTANEOUS 1. Negative control: 50% Glycerin/50% cocas P: W = 0 mm F = 0 mm 2. Lidocaine MPF 1% 1:1 [id number] EXP:01/2025 P: W = 0 mm F = 0 mm 3. Mepivacaine MPF 1% 1:1 [id number] EXP:11/2023 P: W = 0 mm F = 0 mm 4. Tetracaine MPF 1% 1:1 [id number] EXP:05/2023 P: W = 0 mm F = 0 mm 5. HISTAMINE: Positive control Histamine base 6mg/ml P: W = 5 mm F = 20 mm Time applied: 1518 Time read: 1533 ALLERGENS: INTRADERMAL 1. Negative control: 50% Glycerin/50% cocas ID: W = 0 mm F = 0 mm 2. Lidocaine MPF 1% 1:10 LOT:[id number] EXP:01/2025 ID: W = 0 mm F = 0 mm 3. Mepivacaine MPF 1% 1:10 LOT:[id number] EXP:11/2023 ID: W = 0 mm F = 0 mm Tetracaine MPF 1% 1:100 [id number] EXP:05/2023 ID: W = 0 mm F = 0 mm 4. HISTAMINE: Positive control Histamine base 0.1mg/ml ID: W = 10 mm F = 30 mm Hydrocortisone 2.5 % cream applied to positive skin test reactions per doctor's order. Patient instructed regarding inhalant allergen avoidance measures; written information given. Patient seen by Dr Norma ALVARADO prior to leaving [facility]. Carley Castle RN This is a follow-up visit for evaluation of a possible ANANDA/LOCAL ANESTHETICS allergy Initial visit on 10/19/21. -Initial reaction was subjective symptoms only and the epidural anesthesia was continued. -Though Mrs. Del Real was reportedly treated with steroids and benadryl this would not be sufficient to halt a true IgE mediated drug allergy. -She has a dental infection and requires a procedure that will require local anesthetic, because of the above concern skin testing to the two classes of local anesthetics was offered. Kiara Del Real is a 26 year old patient who is here today for testing to ANANDA's Local anesthetics. A list of possible local anesthetics was provided by her Dentist and include agents from both Group 1 and Group 2. -Since her initial visit she has become more comfortable with eating different foods again. Past Medical History: No past medical history on file. Past Surgical History: PAST SURGICAL HISTORY Procedure Laterality Date SECTION HX Allergies: Patient has no known allergies. No current outpatient medications on file. No current facility-administered medications for this visit. Social History Tobacco Use Smoking status: Never Smoker Smokeless tobacco: Never Used Substance Use Topics Alcohol use: Yes Comment: socially Drug use: Not on file FAMILY HISTORY Problem Relation Age of Onset other (prediabetes) Mother Depression Father Diabetes Father Diabetes Maternal Grandmother other (liver cancer) Maternal Grandfather Diabetes Paternal Grandmother REVIEW OF SYSTEMS: GENERAL: Denies fever, chills, night sweats, or changes in weight. All other review of systems negative except for those listed above. EXAM: APPEARANCE: Well appearing, alert, in no acute distress, well-hydrated, well nourished. LABORATORY AND DIAGNOSTIC STUDIES: Mrs. Del Real was tested to Lidocaine, Mepivacaine and Tetracaine, assessing IgE mediated potential to both Group 1 and Group 2 local anesthetic agents. Her testing was negative. Patient has been identified by name and date of : Yes . Skin test applied by : Carley Castle RN Interpreted By: David Green M.D. * Clinical significant reactions are regarded as a wheal diameter greater than or equal to 3 mm with a flare diameter greater or equal to 6mm. Anesthetics received from [facility] and prepared by nurses. Time applied: 1455 Time read: 1510 ALLERGENS: EPICUTANEOUS 1. Negative control: 50% Glycerin/50% cocas P: W = 0 mm F = 0 mm 2. Lidocaine MPF 1% 1:1 LOT:[id number] EXP:01/2025 P: W = 0 mm F = 0 mm 3. Mepivacaine MPF 1% 1:1 LOT:[id number] EXP:11/2023 P: W = 0 mm F = 0 mm 4. Tetracaine MPF 1% 1:1 LOT:[id number] EXP:05/2023 P: W = 0 mm F = 0 mm 5. HISTAMINE: Positive control Histamine base 6mg/ml P: W = 5 mm F = 20 mm Time applied: 1518 Time read: 1533 ALLERGENS: INTRADERMAL 2. Negative control: 50% Glycerin/50% cocas ID: W = 0 mm F = 0 mm 3. Lidocaine MPF 1% 1:10 LOT:[id number] EXP:01/2025 ID: W = 0 mm F = 0 mm 4. Mepivacaine MPF 1% 1:10 LOT:[id number] EXP:11/2023 ID: W = 0 mm F = 0 mm Tetracaine MPF 1% 1:100 [id number] EXP:05/2023 ID: W = 0 mm F = 0 mm 5. HISTAMINE: Positive control Histamine base 0.1mg/ml ID: W = 10 mm F = 30 mm Hydrocortisone 2.5 % cream applied to positive skin test reactions per doctor's order. Patient instructed regarding inhalant allergen avoidance measures; written information given. Patient seen by Dr Norma ALVARADO prior to leaving [facility]. Carley Castle RN ASSESSMENT: No Evidence of IgE mediated potential to the LOCAL ANESTHETIC AGENTS -Testing included agents in BOTH classes of local anesthetic agents. -Based on her negative skin testing and prior history there is a LOW risk of IgE mediated potential to ANY of the local anesthetic agents. -These include but are not limited to the following agents for each class Group 1 Benzoin Acid Antonieta agent which includes Benzocaine, procaine, tetracaine AND Group 2 Amide agents which include bupivacaine, lidocaine, mepivacaine and articaine. -testing is performed with preservative free agents. PLAN: -No contraindication for upcoming dental procedures. -Findings communicated to the primary care and/or consulting physician via mail or the shared electronic medical record. David Green MD documented in this encounter [facility] 12-15-2021 History of Presen t illness Narrative Misc/PERCUTANEOUS & ID SKIN TESTING Wheal and Flare Diameter (mm) Patient has been identified by name and date of : Yes . Skin test applied by : Carley Castle RN Interpreted By: David Green M.D. * Clinical significant reactions are regarded as a wheal diameter greater than or equal to 3 mm with a flare diameter greater or equal to 6mm. Anesthetics received from [facility] and prepared by nurses. Time applied: 1455 Time read: 1510 Negative control: 50% GLYCERIN/50% cocas ALLERGENS: EPICUTANEOUS 1. Negative control: 50% Glycerin/50% cocas P: W = 0 mm F = 0 mm 2. Lidocaine MPF 1% 1:1 LOT:[id number] EXP:01/2025 P: W = 0 mm F = 0 mm 3. Mepivacaine MPF 1% 1:1 LOT:[id number] EXP:11/2023 P: W = 0 mm F = 0 mm 4. Tetracaine MPF 1% 1:1 LOT:[id number] EXP:05/2023 P: W = 0 mm F = 0 mm 5. HISTAMINE: Positive control Histamine base 6mg/ml P: W = 5 mm F = 20 mm Time applied: 1518 Time read: 1533 ALLERGENS: INTRADERMAL 1. Negative control: 50% Glycerin/50% cocas ID: W = 0 mm F = 0 mm 2. Lidocaine MPF 1% 1:10 LOT:[id number] EXP:01/2025 ID: W = 0 mm F = 0 mm 3. Mepivacaine MPF 1% 1:10 LOT:[id number] EXP:11/2023 ID: W = 0 mm F = 0 mm Tetracaine MPF 1% 1:100 LOT:[id number] EXP:05/2023 ID: W = 0 mm F = 0 mm 4. HISTAMINE: Positive control Histamine base 0.1mg/ml ID: W = 10 mm F = 30 mm Hydrocortisone 2.5 % cream applied to positive skin test reactions per doctor's order. Patient instructed regarding inhalant allergen avoidance measures; written information given. Patient seen by Dr Norma ALVARADO prior to leaving [facility]. Carley Castle RN documented in this encounter [facility] 11-26-2021 Evaluation + Plan note Diagnostic Tests PendingChlamydia trachomatis PCR 11/26/21N. gonorrhoeae PCR 11/26/21 [facility] 11-26-2021 Hospital Discharg e instructions Patient Education 11/26/2021 09:22:42 Abdominal Pain, Unknown Cause, (Female) Unknown Causes of Abdominal Pain (Female) The exact cause of your belly (abdominal) pain is not clear. This does not mean that this is something to worry about. Everyone likes to know the exact cause of the problem. But sometimes with belly pain, there is no clear-cut cause, and this could be a good thing. The good news is that your symptoms can be treated, and you will feel better. Your condition does not seem serious now. But sometimes the signs of a serious problem may take more time to appear. For this reason, it is important for you to watch for any new symptoms, problems, or worsening of your condition. Over the next few days, the abdominal pain may come and go. Or it may be constant. Other common symptoms can include nausea and vomiting. Sometimes it can be difficult to tell if you feel nauseous. You may just feel bad and not connect that feeling to nausea. Constipation, diarrhea, and a fever may go along with the pain. The pain may continue even if treated correctly over the following days. Depending on how things go, sometimes the cause can become clear and may need more or different treatment. Additional evaluations, medicines, or tests may also be needed. Home care Your healthcare provider may prescribe medicine for pain, symptoms, or an infection. Follow the healthcare provider's instructions for taking these medicines. General care Rest as much as you can until your next exam. No strenuous activities. Try to find positions that ease discomfort. A small pillow placed on the abdomen may help relieve pain. Something warm on your abdomen (such as a heating pad) may help, but be careful not to burn yourself. Diet Don t force yourself to eat, especially if having cramps, vomiting, or diarrhea. Water is important so you don't get dehydrated. Soup may also be good. Sports drinks may also help, especially if they are not too acidic. Don't drink sugary drinks as this can make things worse. Take liquids in small amounts. Don t guzzle them. Caffeine sometimes makes the pain and cramping worse. Don t take dairy products if you have vomiting or diarrhea. Don't eat large amounts at a time. Wait a few minutes between bites. Eat a diet low in fiber (called a low-residue diet). Foods allowed include refined breads, white rice, fruit and vegetable juices without pulp, tender meats. These foods will pass more easily through the intestine. Don t have whole-grain foods, whole fruits and vegetables, meats, seeds and nuts, fried or fatty foods, dairy, alcohol and spicy foods until your symptoms go away. Follow-up care Follow up with your healthcare provider, or as advised, if your pain does not begin to improve in the next 24 hours. Call 911 Call 911 if any of these occur: Trouble breathing Confusion Fainting or loss of consciousness Rapid heart rate Seizure When to seek medical advice Call your healthcare provider right away if any of these occur: Pain gets worse or moves to the right lower abdomen New or worsening vomiting or diarrhea Swelling of the abdomen Unable to pass stool for more than 3 days Fever of 100.4 F (38 C) or higher, or as directed by your healthcare provider. Blood in vomit or bowel movements (dark red or black color) Yellow color of eyes and skin (jaundice) Weakness, dizziness Chest, arm, back, neck, or jaw pain Unexpected vaginal bleeding or missed period Can't keep down liquids or water and you are getting dehydrated 2409-7133 [employer]. [address] [place] [address]. All rights reserved. This information is not intended as a substitute for professional medical care. Always follow your healthcare professional's instructions. 11/26/2021 09:22:40 Abdominal Pain Abdominal Pain Abdominal pain is pain in the stomach or belly area. Everyone has this pain from time to time. In many cases it goes away on its own. But abdominal pain can sometimes be due to a serious problem, such as appendicitis. So it s important to know when to get help. Causes of abdominal pain There are many possible causes of abdominal pain. Common causes in adults include: Constipation, diarrhea, or gas Stomach acid flowing back up into the esophagus (acid reflux or heartburn) Severe acid reflux, called GERD (gastroesophageal reflux disease) A sore in the lining of the stomach or small intestine (peptic ulcer) Inflammation of the gallbladder, liver, or pancreas Gallstones or kidney stones Appendicitis Intestinal blockage An internal organ pushing through a muscle or other tissue (hernia) Urinary tract infections In women, menstrual cramps, fibroids, ovarian cysts, pelvic inflammatory disease, or endometriosis Inflammation or infection of the intestines, including Crohn's disease and ulcerative colitis Irritable bowel syndrome Diagnosing the cause of abdominal pain Your healthcare provider will give you a physical exam help find the cause of your pain. If needed, you will have tests. Belly pain has many possible causes. So it can be hard to find the reason for your pain. Giving details about your pain can help. Tell your provider where and when you feel the pain, and what makes it better or worse. Also let your provider know if you have other symptoms such as: Fever Tiredness Upset stomach (nausea) Vomiting Changes in bathroom habits Blood in the stool or black, tarry stool Weight loss that you can't explain (involuntary weight loss?) Also report any family history of stomach or intestinal problems, or cancers. Tell your provider about all your alcohol use and drug use. Tell your provider about all medicines you use, including herbs, vitamins, and supplements. Treating abdominal pain Some causes of pain need emergency medical treatment right away. These include appendicitis or a bowel blockage. Other problems can be treated with rest, fluids, or medicines. Your healthcare provider can give you specific instructions for treatment or self-care based on what is causing your pain. If you have vomiting or diarrhea, sip water or other clear fluids. When you are ready to eat solid foods again, start with small amounts of qmgo-ww-ketpvn, low-fat foods. These include apple sauce, toast, or crackers. When to get medical care Call 911 or go to the hospital right away if you: Can t pass stool and are vomiting Are vomiting blood or have bloody diarrhea or black, tarry diarrhea Have chest, neck, or shoulder pain Feel like you might pass out Have pain in your shoulder blades with nausea Have sudden, severe belly pain Have new, severe pain unlike any you have felt before Have a belly that is rigid, hard, and hurts to touch Call your healthcare provider if you have: Pain for more than 5 days Bloating for more than 2 days Diarrhea for more than 5 days A fever of 100.4 F (38 C) or higher, or as directed by your healthcare provider Pain that gets worse Weight loss for no reason Continued lack of appetite Blood in your stool How to prevent abdominal pain Here are some tips to help prevent abdominal pain: Eat smaller amounts of food at each meal. Don't eat greasy, fried, or other high-fat foods. Don't eat foods that give you gas. Exercise regularly. Drink plenty of fluids. To help prevent GERD symptoms: Quit smoking. Reduce alcohol and foods that increase stomach acid. Don't use aspirin or knrk-hvv-zwqtzrv pain and fever medicines, if possible. This includes nonsteroidal anti-inflammatory drugs (NSAIDs). Lose excess weight. Finish eating at least 2 hours before you go to bed or lie down. Raise the head of your bed. [id number] [employer]. [address] [place] [address]. All rights reserved. This information is not intended as a substitute for professional medical care. Always follow your healthcare professional's instructions. 11/26/2021 09:22:31 Painful Menstrual Periods (Dysmenorrhea) Painful Menstrual Periods (Dysmenorrhea) Dysmenorrhea is the term used to describe painful menstrual periods. The uterus is a muscle. Normally, chemicals called prostaglandins cause the uterus to contract during your period. The contractions push out the build-up of tissue that occurs each month inside the uterus. If the contraction is very strong, it can cause pain. The pain may feel like cramping in the lower abdomen, lower back, or thighs. In severe cases, you may have other symptoms as well. These can include nausea, vomiting, loose stools, sweating, or dizziness. There are 2 types of dysmenorrhea: Primary dysmenorrhea refers to common menstrual cramps. It may begin 1 or 2 years after you first get your period. It may get better or go away as you get older or when you have a baby. The cramps are most often felt just before, or on the first day of your period. They may last 1 to 3 days. Treatment is with medicines and comfort measures as described below (see the Home care section). Secondary dysmenorrhea may start later in life. It describes menstrual pain that occurs due to an underlying health problem. The pain may last longer than common menstrual cramps. It may also worsen over time. Some problems that can lead to secondary dysmenorrhea include: Pelvic inflammatory disease (PID). Infection that involves the female reproductive organs, such as the uterus and fallopian tubes Fibroids. Benign growths within the wall of the uterus (not cancer) Endometriosis. Tissue that normally only lines the uterus also grows outside of it (because the abnormal tissue also swells and bleeds each month, it can cause pain) Once the cause of secondary dysmenorrhea is found, it can be treated. Your healthcare provider will discuss options with you as needed. Your care may also include some of the treatments described below (see the Home care section). Home care Medicines Certain medicines can help relieve or prevent menstrual pain and cramping. These can include: Nonsteroidal anti-inflammatory drugs (NSAIDs), such as ibuprofen Prescription pain medicine, if needed Hormone therapy (this includes most methods of hormonal control such as pills, shots, or a hormone-releasing IUD) General care To help relieve pain and cramping, try these tips: Rest as needed. Apply a heating pad to the lower belly or back as directed. A warm bath or massage to these areas may also help. Exercise regularly. Many women find that being more active each week helps reduce pain and cramping. Ask your healthcare provider for advice about other treatments you can try to help control pain and cramping. Follow-up care Follow up with your healthcare provider, or as advised. When to seek medical advice Call your healthcare provider right away if any of these occur: Fever of 100.4 F (38 C) or higher, or as directed by your provider Pain or cramping worsens or doesn t improve with medicine Pain or cramping lasts longer than usual or occurs between periods Unusual vaginal discharge between periods Bleeding becomes heavy (soaking more than 1 pad or tampon every hour for 3 hours) Passage of pink or dumont tissue from the vagina [id number] [employer]. [address] [place] [address]. All rights reserved. This information is not intended as a substitute for professional medical care. Always follow your healthcare professional's instructions. Follow Up Care 11/26/2021 06:54:58 With:Your [employer] doctor Address: When:2-4 days With:Go to emergency room if symptoms worsen Address:Unknown When:2-4 days [facility] 10-19-2021 Instructions David Green MD - 10/19/2021 2:08 PM EDT -If you can, please check with Doctor to find out what was in the EPIDURAL. -More importantly check with your Dentist and ask what DRUGS he/she wants to use for the filling. -Once you know contact me and we can set up a follow-up appointment for testing David Green MD documented in this encounter [facility] 10-19-2021 History of Presen t illness Narrative This is a request for consultation by Krissy Santos MD for the evaluation of possible drug allergy. Kiara Del Real is a 26 year old patient who reports the follwoing history. She is here because she requires some Dental work and her Dentist suggested allergy testing since she feels she had an allergic reaction to an epidural during the delivery of her child. She gave at [facility] last year, the records and details are not available in [facility]. She reports that she was given a spinal/epidural prior to childbirth and then after about 20 minutes she noted some increased SOB. She denies any other systemic symptoms. She reports that she was given some benadryl and felt better. She also reports that the epidural was NOT removed. She was also given a steroid prior to delivery, for the baby and to help with lung development (not for any reaction symptoms she was having). The epidural was only removed after delivery, no indication that she was told she was allergic to the medications in the epidural but ever since she has been nervous/cautious when eating any foods as she is afraid of having another reaction. She will eat a food and wait 15 minutes before trying more due to concerns. She has never had a food allergy and has no other listed drug allergies either. She has a family history (Mom's side) for allergies to Abx. She has NOT had similar symptoms since this episode. Past Medical History: No past medical history on file. Past Surgical History: PAST SURGICAL HISTORY Procedure Laterality Date SECTION HX Allergies: Patient has no known allergies. No current outpatient medications on file. No current facility-administered medications for this visit. Social History Tobacco Use Smoking status: Never Smoker Smokeless tobacco: Never Used Substance Use Topics Alcohol use: Yes Comment: socially Drug use: Not on file FAMILY HISTORY Problem Relation Age of Onset other (prediabetes) Mother Depression Father Diabetes Father Diabetes Maternal Grandmother other (liver cancer) Maternal Grandfather Diabetes Paternal Grandmother REVIEW OF SYSTEMS: GENERAL: Denies fever, chills, night sweats, or changes in weight. All other review of systems negative except for those listed above. See [place] POSTA EXAM: Blood pressure 125/65, pulse 94, weight 68 kg (150 lb), last menstrual period 08/24/2021, SpO2 100 %. APPEARANCE: Well appearing, alert, in no acute distress, well-hydrated, well nourished. ASSESSMENT/PLAN: EPIDURAL REACTION: -Based on her history and reaction it is unlikely she had a true allergic reaction to the epidural/local anesthetic. -Her only symptom was subjective and there was no reported physical manifestations of a drug allergy, rash, change in BP, swelling etc. -The FIRST step in managing a true drug allergy would be to STOP the medication, she reports that she continued with the epidural. -Treatment alone would NOT prevent or STOP a true drug allergy. So despite her perceived benefit from benadryl this would not be appropriate treatment without first stopping the epidural. -Steroids would not work this quickly either -All this information was reviewed in detail and explained to Ms Del Real. -She was instructed that if she is still concerned then we can perform skin testing to local anesthetics if necessary. -It would be useful to know what anesthetic agent your Dentist wants to use. -Though NOT absolutely necessary it would also be helpful to know what anesthetic was used for the epidural so that we can also test that one. -Once this information is known she can call and we can set up appointment on [address] [facility] for testing. FOOD CONCERNS: -We also reviewed the difference between drug and food allergies and that these are distinct allergies and are unrelated to each other. -She has NEVER had a food reaction in the past so it is very unlikely to have one now. -Even if above were a true drug allergy this would NOT change her low risk for food allergy. A formal PE was deferred today as the majority of this office visit was spent reviewing the above diagnosis, discussing treatment options with patient and instituting the Tx in a manner c/w her preferences and goals. I spent a total of 45 minutes on the date of the service which included preparing to see the patient, cjhs-ys-xbew patient care, completing clinical documentation, counseling and educating the patient/family/caregiver and care coordination (not separately reported) David Green MD documented in this encounter [facility] 10-07-2021 Hospital Discharg e instructions Patient Education 10/07/2021 11:39:52 Dental Pain Dental Pain A crack or cavity in a tooth can cause tooth pain. This is because the crack or cavity exposes the sensitive inner area of the tooth. An infection in the gum or the root of the tooth can cause pain and swelling. The pain is often made worse when you drink hot or cold beverages. It can also be worse when you bite on hard foods. Pain may spread from the tooth to your ear or the area of the jaw on the same side. Home care Follow these tips when caring for yourself at home: Don't have hot and cold foods and drinks. Your tooth may be sensitive to changes in temperature. Use toothpaste made for sensitive teeth. [place] gently up and down instead of sideways. Brushing sideways can wear away root surfaces if they are exposed. If your tooth is chipped or cracked, or if there is a large open cavity, put oil of cloves directly on the tooth to relieve pain. You can buy oil of cloves at [employer]. Some pharmacies carry an daoe-ljs-obofhxd toothache kit. This contains a paste that you can put on the exposed tooth to make it less sensitive. Put a cold pack on your jaw over the sore area to help reduce pain. You may use qyjr-oxp-gpuilhl medicine to ease pain, unless your doctor prescribed another medicine. If you have chronic liver or kidney disease, talk with your healthcare provider before using acetaminophen or ibuprofen. Also talk with your provider if you ve had a stomach ulcer or GI bleeding. If you have signs of an infection, you will be given an antibiotic. Take it as directed. Follow-up care Follow up with your dentist, or as advised. Your pain may go away with the treatment given today. But only a dentist can fully look at and treat the cause of your pain. This will keep the pain from coming back. Call 911 Call 911 if any of these occur: Unusual drowsiness Headache or stiff neck Weakness or fainting Difficulty swallowing or breathing When to seek medical advice Call your health care provider right away if any of these occur: Your face becomes swollen or red Pain gets worse or spreads to your neck Fever of 100.4 F (38.0 C) or higher, or as directed by your healthcare provider Pus drains from the tooth [id number] [employer]. [address] [place] [address], [place] [address]. All rights reserved. This information is not intended as a substitute for professional medical care. Always follow your healthcare professional's instructions. 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 [facility] Diagnosis Other allergy status, other than to drugs and biological substances- [facility] Diagnosis Other allergy status, other than to drugs and biological substances- Primary [facility] Diagnosis Irregular periods- Primary Irregular menstrual cycle Nausea Nausea alone Decreased visual acuity Unspecified visual loss [facility] Diagnosis Blurred vision, bilateral- Primary Other specified visual disturbances Myopia, bilateral Myopia Dry eye syndrome of bilateral lacrimal glands Tear film insufficiency, unspecified Decreased visual acuity Unspecified visual loss [facility] Diagnosis Palpitations- Primary Elevated glucose Other abnormal glucose Numbness and tingling in left arm Disturbance of skin sensation [facility] Palpitations [facility] No data available for this section [facility] Reason for referral (narrative)* Outpatient Procedure (Routine) - New Request Specialty Diagnoses / Procedures Referred By Contac t Referred To [facility] Diagnoses Palpitations Procedures ECG COMPLETE ECG ROUTINE ECG W/LEAST 12 LDS W/I&R PodPina camacho APRN.LOG BUYER [address] [place] [address] [facility] [place] [address] [place] [address] Referral ID Status Reason Start Date Expiration Date Visits Requested Visits Authorized [id number] New Request Auto-Generat ed Referral 4 05/07/2025 1 1 [facility] Summary Purpose Family History No Family History Records FoundNo Family History Records Found No data available for this section No Family History Records FoundNo Family History Records Found Advance Directives No Advanced Directives Records FoundNo Advanced Directives Records FoundNo Advanced Directives Records FoundNo Advanced Directives Records Found Reason for Referral Specialty Diagnoses / Procedures Referred By Aung jauregui Referred To Contact Ophthalmology Diagnoses Decreased visual acuity Procedures CONSULT TO OPHTHALMOLOGY OFFICE/OUT[facility]IENT [facility] 60-74 MINUTES Krissy Santos MD [address] [place] [address] Referral ID Status Reason Start Date Expiration Date Visits Requested Visits Authorized [id number] Authorized PCP Requested Referral 3 05/29/2024 1 1 Medications Administered Section Inactive Administered Medications - up to 3 most recent administrations Medication Order MAR Action Action Date Dose Rate Site PHENYLephrine 2.5 % 1 Drop (AK-DILATE, FELTON-SYNEPHRINE) 1 Drop, BOTH EYES, ONCE, 1 dose, On Suzy 06/01/23 at 1000, FOR OPHTHALMIC USE ONLY PROTECT FROM LIGHT Given 06/01/2023 10:00 AM EST 1 Drop proparacaine 0.5 % 1 Drop (ALCAINE) 1 Drop, BOTH EYES, ONCE, 1 dose, On Suzy 06/01/23 at 1000, FOR THE EYE Given 06/01/2023 10:00 AM EST 1 Drop tropicamide 1 % 1 Drop (MYDRIACYL) 1 Drop, BOTH EYES, ONCE, 1 dose, On Suzy 06/01/23 at 1000, FOR THE EYE Given 06/01/2023 10:00 AM EST 1 Drop Additional Source Comments INFORMATION SOURCE (unrecogn ized section and content) DATE CREATED AUTHOR 07/23/2020 [facility] DATE CREATED AUTHOR AUTHOR'S ORGANIZ ATION 04/25/2022 [facility] ([place]) DATE CREATED AUTHOR AUTHOR'S ORGANIZ ATION 05/03/2024 [facility] DATE CREATED AUTHOR AUTHOR'S ORGANIZ ATION 05/08/2024 [facility] Source Comments (unrecognize d section and content) In the event this informatio n is protected by the Federal Confidentiality of Alcohol and Drug Abuse Patient Records regulations: The Federal rules restrict any use of the information to criminally investigate or prosecute any alcohol or drug abuse patient.[facility] the event this information is protected by the Federal Confidentiality of Alcohol and Drug Abuse Patient Records regulations: The Federal rules restrict any use of the information to criminally investigate or prosecute any alcohol or drug abuse patient.[facility] the event this information is protected by the Federal Confidentiality of Alcohol and Drug Abuse Patient Records regulations: The Federal rules restrict any use of the information to criminally investigate or prosecute any alcohol or drug abuse patient.[facility] the event this information is protected by the Federal Confidentiality of Alcohol and Drug Abuse Patient Records regulations: The Federal rules restrict any use of the information to criminally investigate or prosecute any alcohol or drug abuse patient.[facility] the event this information is protected by the Federal Confidentiality of Alcohol and Drug Abuse Patient Records regulations: The Federal rules restrict any use of the information to criminally investigate or prosecute any alcohol or drug abuse patient.[facility] the event this information is protected by the Federal Confidentiality of Alcohol and Drug Abuse Patient Records regulations: The Federal rules restrict any use of the information to criminally investigate or prosecute any alcohol or drug abuse patient.[facility] the event this information is protected by the Federal Confidentiality of Alcohol and Drug Abuse Patient Records regulations: The Federal rules restrict any use of the information to criminally investigate or prosecute any alcohol or drug abuse patient.[facility] HospitalIn the event this information is protected by the Federal Confidentiality of Alcohol and Drug Abuse Patient Records regulations: The Federal rules restrict any use of the information to criminally investigate or prosecute any alcohol or drug abuse patient.[facility] HospitalIn the event this information is protected by the Federal Confidentiality of Alcohol and Drug Abuse Patient Records regulations: The Federal rules restrict any use of the information to criminally investigate or prosecute any alcohol or drug abuse patient.[facility] Reason for Visit (unrecogniz ed section and content) Reason Comments New Patient Reason Comments Eye Problem Vision changes Menstrual Problem Irregular periods- H eavy bleeding Monday and Monday- no bleeding today Hormone Problem Feels like maybe abn ormal Fatigue Reason Comments Blurred Vision Both Eyes Dry Eye(s) Both Eyes Specialty Diagnoses / Procedures Referred By Contac t Referred To Contact Ophthalmology Diagnoses Decreased visual acuity Procedures CONSULT TO OPHTHALMOLOGY OFFICE/OUTPATIENT NEW HIGH MDM 60-74 MINUTES Krissy Santos MD [address] [place] [address] Referral ID Status Reason Start Date Expiration Date V isits Requested Visits Authorized [id number] Closed PCP Requested Referral 05/30/2023 05/29/2024 1 1 Reason Comments ER F/U Reason Comments Results Care Teams (unrecognized sec tion and content) [employer] Coordinator Relationship Specialty Start Date End Date Krissy Santos MD [address] [place], [place] [id number] PCP - General Family Practice 08/31/21 [employer] Access Coordinator Relationship Specialty Start Date End Date Krissy Santos MD [address] [place], [place] [id number] PCP - General Family Practice 08/31/21 [employer] Access Coordinator Relationship Specialty Start Date End Date Krissy Santos MD [address] [facility] [address] PCP - General Family Medicine 08/31/21 [employer] Access Coordinator Relationship Specialty Start Date End Date Krissy Santos MD [address] [facility] [address] PCP - General [facility] Medicine 08/31/21 [employer] Access Coordinator Relationship Specialty Start Date End Date Krissy Santos MD [address] [facility] [place] [address] PCP - General [facility] 08/31/21 [employer] Access Coordinator Relationship Specialty Start Date End Date Krissy Santos MD [address] [place] [address] PCP - General [facility] 08/31/21 [employer] Access Coordinator Relationship Specialty Start Date End Date Krissy Santos MD [address] [facility] [place] [address] PCP - General Family Medicine 08/31/21 FOR RECORDS PERTAINING TO PATIENTS WHO ARE OR HAVE BEEN ENROLLED IN A CHEMICAL DEPENDENCY/SUBSTANCEABUSE PROGRAM, SOME INFORMATION MAY BE OMITTED. This clinical summary was aggregated from multiple sources. Caution should be exercised in using it in the provision of clinical care. This summary normalizes information from multiple sources, and as a consequence, information in this document may materially change the coding, format and clinical context of patient data. In addition, data may be omitted in some cases. CLINICAL DECISIONS SHOULD BE BASED ON THE PRIMARY CLINICAL RECORDS. [employer] [facility]. provides no warranty or guarantee of the accuracy or completeness of information in this document.
--- NOTE | 2024-05-11 14:22 | EX.ED.DYSGE1 ---
HPI History of Present Illness Chief Complaint: General Illness Detail of Chief Complaint: Pain with swallowing for 3 weeks. Informant: patient Onset/Context/Timing Onset: Weeks Context: Gradual Onset Timing: Continuous Current Severity: Mild Maximum Severity: Mild Narrative Narrative: 28-year-old female no significant past medical or surgical history. States she has had discomfort with swallowing for 3 weeks. She saw her primary care physician who did an extensive workup without any specific findings. She is also been placed on a gambling monitor. She has tried warm salt water gargling. She is able to swallow and has no trouble breathing. Prior similar symptoms: Yes Recent Illness/Hospitalization: No PFSH PFSH Medical History Dichorionic diamniotic twin gestation History of miscarriage Home Medications ?Medication ?Instructions ?Recorded ?Last Taken ?Type NK 04/20/23 Unknown History Allergy/AdvReac Type Severity Reaction Status Date / Time No Known Allergies Allergy Verified 05/11/24 13:58 Family History Unknown Diabetes Surgical History Hx of bilateral salpingectomy delivery delivered Social History Smoking Status: Never smoker alcohol intake: never substance use type: does not use caffeine: Yes what type of physical activity do you participate in: walking seatbelt use: always do you feel safe at home: Yes additional social history[facility] [employer] Patient works at the [employer] ROS ED ROS Narrative Denies recent illness. Constitutional Constitutional ED: Denies chills Eyes Eyes: Denies blurry vision ENT ENT ED: Reports sore throat; Denies ear pain Cardiovascular Cardiovascular: Denies chest pain Respiratory/Chest Respiratory/Chest: Denies cough Gastrointestinal Gastrointestinal: Denies abdominal pain Genitourinary Genitourinary ED: Denies dysuria or hematuria Musculoskeletal Musculoskeletal: Denies arthralgias Integumentary Denies abscess or Abrasions Neurologic Neurologic: Denies headache(s) Psychiatric Psychiatric: Reports anxiety; Denies depression Endocrine Endocrinology: Denies cold intolerance Hematologic/Lymphatic Hematologic/Lymphatic: Reports none Allergic/Immunologic Allergic/Immunologic ED: Denies mouth swelling, tongue swelling or urticaria EXAM Physical Exam Narrative Exam Narrative: Well-appearing 28-year-old female. Vital signs stable afebrile. Pulse ox 100% on room air no hypoxia. Patient is lying back in bed. H EENT exam posterior pharynx normal. No erythema or exudate. TMs normal. Patient has no trouble swallowing or breathing. No drooling or stridor. I gave her a glass of water she drank it easily. Neck nontender. Trachea midline. No lymphadenopathy. Lungs clear to auscultation bilaterally. Heart regular rhythm rate about 100 no murmur. Chest wall and ribs nontender. Abdomen soft nontender. Back nontender. Patient is moving all 4 extremities. 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 Dorsi plantarflexion intact. Nontender no edema. She is awake and alert. No focal motor deficits. She is mildly anxious. Const Vital Signs: 05/11/24 13:56 05/11/24 13:58 Temperature 98.1 F Temperature Source Oral Pulse Rate 101 H Respiratory Rate 18 Respiratory Effort Normal Respiratory Pattern Normal Blood Pressure 128/75 H Blood Pressure Mean 92 Pulse Ox 100 Oxygen Delivery Method Room Air Positive well nourished and well developed; Negative for obese, cachectic, contractures or unkempt General Appearance ED: well developed and NAD; Negative for unkempt, cachectic, contractures, cyanotic, diaphoretic or pallor Nutritional Appearance: Negative for cachectic or obese HEENT Reports moist mucous membranes Negative for trauma or tenderness Eyes PERRL and EOMs intact bilaterally General Eye ED: Negative for pale conjunctiva Neck no lymphadenopathy, supple and no JVD General: Negative for tenderness Lymph Lymphatic: Negative for other Chest Wall inspection of chest normal and palpation of chest normal Resp normal respiratory effort and clear to auscultation bilaterally Cardio regular rate, regular rhythm, S1 normal heart sound, S2 normal heart sound and no murmurs GI normal to inspection, nondistended, normoactive bowel sounds, non-tender, non-distended and no masses Auscultation: normoactive bowel sounds Palpation: soft; Negative for tender, guarding or rebound tenderness present Back/Spine no CVA tenderness General Back: Negative for CVA tenderness Cervical Spine: Negative for cervical spine tenderness Thoracic Spine / Upper Back: Negative for thoracic spinal tenderness or paraspinal muscle tenderness Lumbar Spine / Lower Back: Negative for lumbar spinal tenderness Extremity normal to inspection General Extremety ED: Negative for edema, tenderness or other findings General Extremity: Negative for edema or other findings Neuro oriented x3 and CN's II-XII intact bilaterally Sensorium / Orientation: alert; Negative for orientation impaired, lethargic or stuporous Motor Exam: strength 5/5 throughout Psych mental status grossly normal Appearance: Negative for unkempt Attitude: No agitated Mood & Affect: anxious and tearful; Negative for depressed Skin no rashes or lesions noted, no wounds and skin turgor normal General Skin Exam: elasticity normal; Negative for jaundice or pallor Lesions: No lesion noted Rashes: No rashes noted Trauma: Negative for abrasion Wounds: Negative for wounds noted MDM MDM MDM Narrative Medical decision making narrative: 20-year-old female is completely normal exam. She complained discomfort when she swallows there is no signs of strep throat. Again no trouble swallowing or breathing. She does seem anxious at times even tearful. Explained to her she had a recent workup that was normal. I do not think she needs any imaging. There is no signs of epiglottitis. And she swallowed a glass water without any difficulty. Warm salt water gargling. Motrin and Tylenol and follow-up. Lab Data Lab results narrative: I reviewed the patient's labs from an outpatient workup from another facility. Discharge Plan Triage Chief Complaint: General Illness ED Provider: Domingo Dukes Dx/Rx/DC Orders Clinical Impression: Acute sore throat Prescriptions: No Action NK Primary Care Provider: Tawana Coronado NP Referrals: Tawana Coronado NP, [employer] [Primary Care Provider] - 10-14 Days if not better Activity Restrictions/Additional Instructions: Your exam is normal. Warm salt water gargling. Motrin and Tylenol for pain. This should progressively start getting better. If not follow-up for further evaluation. Print Language: Finnish Disposition Disposition: Home, Self Care
[2024-05-11 14:28] VITALS: BP 120/76; PULSE 61; RESP 14; TEMP 36.6; O2SAT 99
== END 2024-05-11 14:28 | disposition home or self-care (01) ==
PROVIDERS: Emergency Provider Emergency Medicine; PCP Nurse Practitioner Primary Care; Visit Provider Emergency Medicine
DX: J02.9 Acute pharyngitis, unspecified (principal)
CPT/HCPCS: 99282

== ENCOUNTER → 2024-05-29 | Outpatient (CLI) | payer MEDICAID, SELFPAY ==
[2024-06-06 20:33] LABS: HPV Reflexed? NOT INDICATED
== END | disposition home or self-care (01) ==
LOC: LABSPEC 11:35
PROVIDERS: PCP Nurse Practitioner Primary Care; Referring Provider Nurse Practitioner Women's Health; Visit Provider Nurse Practitioner Women's Health
DX: N93.9 Abnormal uterine and vaginal bleeding, unspecified (principal); Z12.4 Encounter for screening for malignant neoplasm of cervix
CPT/HCPCS: 88175; G0145